=== PATIENT | female | born 1940 | race Caucasian/White ===

== ENCOUNTER → 2016-10-10 | Outpatient (CLI) | payer OTHER, BC ==
[~2016-10-10] MED LIST: ASCA500 PO; CLTP PO; CMDUNK PO; NIAC1TAB59 PO; OMEG10007 PO; OXYC-57 PO; OXYSR10 PO; SIMV80TA2 PO; TRAZ100T29 PO; [UNRECOGNIZED DRUG - OTHER] PO
--- NOTE | 2016-10-10 11:25 | DIAGNOSTIC IMAGING REPORT ---
ULTRASOUND OF THE CAROTID ARTERIES CLINICAL HISTORY: Carotid artery stenosis. COMPARISON STUDY: Carotid artery ultrasound dated 01/06/2014. TECHNIQUE: Real-time, grayscale, and color Doppler sonography of the carotid arteries is performed. Images are reviewed in the transverse and longitudinal planes. FINDINGS: Blood pressure in the right arm measures 156/87 and blood pressure in the left arm measures 178/90. The carotid arteries are patent bilaterally and demonstrate antegrade flow. There is mild echogenic shadowing atherosclerotic plaque seen in the carotid bulbs bilaterally. Normal doppler arterial waveforms are seen throughout. Velocity measurements are listed below. Common carotid peak systolic velocity (cm/sec): RIGHT: 62 LEFT: 69 ICA proximal peak systolic velocity (cm/sec): RIGHT: 40 LEFT: 59 ICA mid peak systolic velocity (cm/sec): RIGHT: 55 LEFT: 37 ICA distal peak systolic velocity (cm/sec): RIGHT: 54 LEFT: 52 ICA/CC peak systolic ratio: RIGHT: 0.9 LEFT: 0.9 Antegrade flow was shown in the vertebral arteries. The external carotid arteries are patent. IMPRESSION: 1. There is no sonographic evidence of hemodynamically significant stenosis in the right or left carotid arterial system. 2. Antegrade flow is shown in the vertebral arteries. Electronically signed by: Rodger Clark M.D. 10/10/2016 11:24 AM Dictated Date/Time: 10/10/2016 11:22 AM
--- NOTE | 2016-10-14 12:25 | CODING QUERY MEDICAL NECESSITY ---
SUPPORTING DIAGNOSIS NEEDED A supporting diagnosis is required for the test/procedure performed on this patient in order for us to be reimbursed by the patient's insurance. Please provide a supporting diagnosis for the following test/procedure listed below next to the test name along with your signature. *If there is no additional diagnosis for this patient that would support the following test/procedure please document that below next to the test/procedure. Test(s)/Procedure(s) that require a supporting diagnosis: * US CAROTID DOPPLER NECK DIAGNOSIS: * DOS: 10/10/16 Provider Signature: Date: Thank you Autumn [facility] Information Management Once completed, please kindly fax back to [phone] For questions please call [phone]
== END | disposition home or self-care (01) ==
LOC: C.ULTR 09:45
PROVIDERS: ATTEND Nurse Practitioner
DX: I65.29 Occlusion and stenosis of unspecified carotid artery (principal)

== ENCOUNTER → 2017-04-05 | Outpatient (CLI) | payer OTHER, BC ==
--- NOTE | 2017-04-05 12:32 | MAMMOGRAPHY REPORT ---
BILATERAL DIGITAL SCREENING MAMMOGRAM WITH CAD: 04/05/2017 CLINICAL HISTORY: Routine screening. Patient has no complaints. TECHNIQUE: Current study was also evaluated with a Computer Aided Detection (CAD) system. Bilateral CC and MLO views were obtained. COMPARISON: Comparison is made to exams dated: 03/25/2016 mammogram, 03/24/2015 mammogram, 07/22/2014 ultrasound, 07/22/2014 mammogram, 01/20/2014 ultrasound, and 01/20/2014 mammogram - [facility]. BREAST COMPOSITION: There are scattered areas of fibroglandular density in both breasts. FINDINGS: No suspicious masses, calcifications, or areas of architectural distortion are noted in ei ther breast. There has been no significant interval change compared to prior exams. Bilateral benign -appearing calcifications are not significantly changed. IMPRESSION: ACR BI-RADS CATEGORY 2: BENIGN There is no mammographic evidence of malignancy. A 1 year screening mammogram is recommended. The pa tient will receive written notification of the results. Approximately 10% of breast cancers are not detected with mammography. A negative mammographic report should not delay biopsy if a clinically suggestive mass is present. Azra Singh M.D. /:04/05/2017 11:43:16 Structures Engineer: Milka Lima, [facility] letter sent: Normal 1/2 BI-RADS Code: ACR BI-RADS Category 2: Benign
== END | disposition home or self-care (01) ==
LOC: C.MAMM 09:26
PROVIDERS: ATTEND Obstetrics & Gynecology
DX: Z12.31 Encounter for screening mammogram for malignant neoplasm of breast (principal)

== ENCOUNTER → 2017-05-29 | Outpatient (CLI) | payer OTHER, BC ==
[2017-05-29 12:31] LABS: ALT/SGPT 23 U/L (12-78); AST/SGOT 24 U/L (15-37); BLOOD UREA NITROGEN 25 mg/dl (7-18); BUN/CREATININE RATIO 33.6 (10-20); CALCIUM 8.1 mg/dl (8.5-10.1); CARBON DIOXIDE 28 mmol/L (21-32); CHLORIDE 108 mmol/L (98-107); CREATININE 0.74 mg/dl (0.60-1.20); GLUCOSE 91 mg/dl (70-99); POTASSIUM 4.4 mmol/L (3.5-5.1); SODIUM 143 mmol/L (136-145)
[2017-05-29 12:43] LABS: ALB/GLOB RATIO 0.9 (0.9-2); ALKALINE PHOSPHATASE 73 U/L (45-117)
== END | disposition home or self-care (01) ==
LOC: C.LABBFT 07:38
PROVIDERS: ATTEND Nurse Practitioner
DX: E04.0 Nontoxic diffuse goiter (principal); E78.00 Pure hypercholesterolemia, unspecified

== ENCOUNTER → 2017-06-02 | Outpatient (CLI) | payer OTHER, BC ==
[2017-06-02 12:29] LABS: CHOLESTEROL/HDL RATIO 2.5
== END | disposition home or self-care (01) ==
LOC: C.LABBFT 10:52
PROVIDERS: ATTEND Internal Medicine
DX: E78.00 Pure hypercholesterolemia, unspecified (principal)

== ENCOUNTER → 2017-08-22 | Outpatient (CLI) | payer OTHER, BC ==
[~2017-08-22] MED LIST changes: +ASPI81TA28 PO; +CALC600T9 PO; +CLB/200 PO; +EZET10TA63 PO; +IBUP-1050 PO; +MULT-190 PO; +MULT-506 PO; +TIMO1SOL6 OP
== END | disposition home or self-care (01) ==
LOC: C.CTS 09:38
PROVIDERS: ATTEND Orthopaedic Surgery
DX: M19.012 Primary osteoarthritis, left shoulder (principal)

== ENCOUNTER 2017-09-15 08:20 | Inpatient (IN) | payer OTHER, BC ==
[2017-08-22 10:02] VITALS: BMI 29.0
--- NOTE | 2017-08-22 10:35 | PAT Medication Instructions ---
Service Date Aug 22, 2017. Current Home Medication List Aspirin (Aspirin Ec), 81 MG PO QPM Calcium Carbonate-Vitamin D (Calcium + D), 1 TAB PO NOON Celecoxib (CeleBREX), 200 MG PO PRN Ezetimibe (Zetia), 10 MG PO QAM Ibuprofen (Advil), 600 MG PO PRN Multivitamin (Multivitamin), 1 TAB PO NOON Ocuvite Preservision (Ocuvite Preservision), 1 TAB PO BID Simvastatin (Zocor), 80 MG PO QPM Timolol Hemihydrate 0.25% Oph (Betimol 0.25% Oph), 1 DROP OP BID Trazodone Hcl (Trazodone), 100 MG PO HS Medication Instructions For Your Scheduled Surgery - Check with surgeon for instructions: Celecoxib (CeleBREX), 200 MG PO PRN Ibuprofen (Advil), 600 MG PO PRN - Hold the following medications the morning of surgery: Multivitamin (Multivitamin), 1 TAB PO NOON Ocuvite Preservision (Ocuvite Preservision), 1 TAB PO BID - Take the following medications the morning of surgery with a sip of water: Ezetimibe (Zetia), 10 MG PO QAM Timolol Hemihydrate 0.25% Oph (Betimol 0.25% Oph), 1 DROP OP BID - Take the following medications as scheduled the night before surgery: Aspirin (Aspirin Ec), 81 MG PO QPM (okay to continue per surgeon) Simvastatin (Zocor), 80 MG PO QPM Timolol Hemihydrate 0.25% Oph (Betimol 0.25% Oph), 1 DROP OP BID Trazodone Hcl (Trazodone), 100 MG PO HS Ocuvite Preservision (Ocuvite Preservision), 1 TAB PO BID If you have any questions please call us at [phone] or [phone] or [phone]
[2017-08-22 11:14] LABS: BASO % 1.1 %; BASO ABS # 0.08 K/uL (0-0.2); COMPLETE YES; EOS % 2.5 %; HEMATOCRIT 37.2 % (37-47); IG% 0.3 %; LYMPH % 31.1 %; LYMPH ABS # 2.36 K/uL (1.2-3.4); MANUAL MICROSCOPIC REQUIRED? NO; MEAN CELL VOLUME 98.7 fL (80-100); MEAN CORPUSCULAR HEMOGLOBIN 32.4 pg (25-34); MEAN CORPUSCULAR HGB CONC 32.8 g/dl (32-36); MEAN PLATELET VOLUME 9.7 fL (7.4-10.4); MONO % 6.6 %; NEUT % 58.4 %; PLATELET COUNT 318 K/uL (130-400); RED BLOOD COUNT 3.77 M/uL (4.2-5.4); URINE APPEARANCE CLEAR (CLEAR); URINE BILIRUBIN NEG (NEG); URINE COLOR YELLOW; URINE NITRITE NEG (NEG); UROBILINOGEN NEG (NEG); WHITE BLOOD COUNT 7.58 K/uL (4.8-10.8)
[2017-08-22 11:21] LABS: REVIEW REQ? NO
[2017-08-22 11:24] LABS: PARTIAL THROMBOPLASTIN RATIO 1.1; PROTHROMBIN TIME (PATIENT) 10.4 SECONDS (9.0-12.0)
--- NOTE | 2017-08-22 12:05 | DIAGNOSTIC IMAGING REPORT ---
CHEST 2 VIEWS ROUTINE HISTORY: Preop. COMPARISON: Chest 10/01/2012. FINDINGS: The lungs are clear. Cardiac silhouette is normal in size. No pleural effusions. No pneumothorax. IMPRESSION: No acute process. Electronically signed by: Forset Warner M.D. 08/22/2017 12:04 PM Dictated Date/Time: 08/22/2017 12:01 PM
[2017-08-22 13:41] LABS: BUN/CREATININE RATIO 30.3 (10-20); CALCIUM 8.5 mg/dl (8.5-10.1); CREATININE 0.59 mg/dl (0.60-1.20); POTASSIUM 4.1 mmol/L (3.5-5.1)
--- NOTE | 2017-09-13 17:16 | HISTORY & PHYSICAL EXAMINATION ---
DATE OF ADMISSION: 09/15/2017 CHIEF COMPLAINT: Primary osteoarthritis of the left shoulder. HISTORY OF PRESENT ILLNESS: Courtney is a pleasant 77-year-old female who is complaining of 1 year history of left shoulder pain. It has gotten to the point where she is unable to sleep at night. She has pain doing any activities away from her body and over her head. X-rays and clinical examination have been diagnostic for primary osteoarthritis of the left shoulder. After failing conservative treatment she elected to proceed with a left total shoulder arthroplasty. PAST MEDICAL HISTORY: Significant for hyperlipidemia, TIA and osteoarthritis. MEDICATIONS: Aspirin 81 mg daily, simvastatin 80 mg daily, Zetia 10 mg daily, trazodone 100 mg daily, timolol 0.25 mg daily, and calcium 1000 mg daily. ALLERGIES: MORPHINE. PAST SURGICAL HISTORY: Significant for right total knee arthroplasty in 1997, left total knee arthroplasty in 2008 and endarterectomy in 2011. SOCIAL HISTORY: She smoked a pack a day for 15 years but quit 10 years ago. She has about 3 drinks per week. She tries to remain active. REVIEW OF SYSTEMS: She complains of left shoulder pain. All other pertinent review of systems are negative. PHYSICAL EXAMINATION: GENERAL: She is awake, alert and orient x3. She is in no apparent distress. She is very pleasant. HEENT: Pupils are equal, round and reactive to light. Extraocular movements intact. Oral mucosa is pink and moist. HEART: Regular rate per radial pulse. LUNGS: Lilian symmetrically bilaterally with no audible breath sounds. ABDOMEN: Soft, nontender, nondistended. MUSCULOSKELETAL: On physical examination of left shoulder, she has decreased range of motion about 130 degrees of forward flexion and 130 degrees of abduction. She has 5/5 muscle strength with full can testing and external rotation. Negative bear hug and belly press test. She does have crepitus and pain along the anterior glenohumeral joint line. IMAGING DATA: X-rays of the left shoulder do show advanced osteoarthritis with joint space narrowing and osteophyte formation. There is also a small inferior humeral osteophyte. IMPRESSION: Primary osteoarthritis of the left shoulder. PLAN: Will proceed with a Biomet comprehensive left total shoulder arthroplasty. Postoperatively, she will be placed in a sling and kept overnight for postoperative medical management.
[2017-09-15] VITALS (8 sets, daily range): BP systolic 128–155; BP diastolic 74–87; PULSE 67–83; TEMP 36.3–36.7; O2SAT 93–99; Ht 157.5 cm; Wt 70.5 kg
[~2017-09-15] VITALS: Ht 157.5 cm; Wt 70.5 kg
[2017-09-15] MEDS: TRANEXAMIC ACID INJ 1,000 MG in SYRINGE 0 ML IV SCH ×2 (06:30→10:35)
[~2017-09-15 08:20] MED LIST changes: +ACETAMINOPHEN 500 MG TAB PO SCH; -ASCA500 PO; +BUPIVACAINE 0.5 % 5 MG/1 ML PF 10ML VIAL ONE; +CEFAZOLIN 2000MG IV PUSH 10 ML IV SCH; +CLONIDINE HCL 100 MCG/ML SYRINGE ONE; -CLTP PO; -CMDUNK PO; +FAMOTIDINE 20 MG TAB PO SCH; +GABAPENTIN 300 MG CAP PO SCH; +LACTATED RINGER'S 1000ML 1,000 ML IV SCH; +LACTATED RINGER'S 1000ML IV SCH; +MEPIVACAINE HCL 1.5% 30 ML VIAL ONE; -NIAC1TAB59 PO; -OMEG10007 PO; -OXYC-57 PO; -OXYSR10 PO; +ROPIVACAINE 5MG/ML 30 ML 150 MG, BUPIVACAINE 0.5% MPF INJ 30 ML, EpINEphrine HCL INJ 0.... INFIL SCH; -[UNRECOGNIZED DRUG - OTHER] PO
--- NOTE | 2017-09-15 09:07 | History & Physical Bridge Note ---
H&P Re-Evaluation Bridge Note: I have examined the patient, reviewed the History & Physical and in the interval since the performance of the History & Physical I have noted the following changes of clinical significance: No changes noted
[2017-09-15] MEDS ORDERED: LIDOCAINE HCL 2% 2 ML VIAL (20MG/ML) ONE (10:33)
[2017-09-15] MEDS ORDERED: GLYCOPYRROLATE INJ 0.2 MG/ML VIAL ONE ×2 (10:33→13:06)
[2017-09-15] MEDS ORDERED: PROPOFOL IV EMULSION 10 MG/ML 20 ML VIAL IV ONE (10:33)
[2017-09-15] MEDS ORDERED: ONDANSETRON INJ 2 MG/ML 2 ML VIAL ONE (10:33)
[2017-09-15] MEDS ORDERED: NEOSTIGMINE METHYLSULFATE 5 MG/5 ML SYR ONE (10:33)
[2017-09-15] MEDS ORDERED: DEXAMETHASONE SOD INJ 4 MG/ML VIAL ONE (10:33)
[2017-09-15] MEDS ORDERED: MIDAZOLAM HCL 1 MG/ML 2ML VIAL ONE (10:34)
[2017-09-15] MEDS ORDERED: FENTANYL CITRATE INJ 50 MCG/1 ML 2 ML VIAL ONE (10:34)
[2017-09-15] MEDS ORDERED: BACITRACIN 50000 UNIT VIAL ONE (12:07)
[2017-09-15] MEDS ORDERED: ORTHO JOINT ANESTHETIC ONE (12:07)
[2017-09-15] MEDS ORDERED: EpHEDrine SULFATE INJ 50 MG/ML AMP ONE (13:06)
[2017-09-15] MEDS ORDERED: SODIUM CHLORIDE 0.9% INJ 10 ML VIAL ONE (13:06)
[2017-09-15] MEDS ORDERED: PHENYLEPHRINE HCL INJ 10 MG/ML VIAL ONE (13:06)
[2017-09-15] MEDS ORDERED: LARYING-O-JET KIT (LTA) ONE ×2 (13:06)
[2017-09-15] MEDS ORDERED: SUCCINYLCHOLINE CHLORIDE 20 MG/ML 10 ML VIAL IV ONE (13:15)
[2017-09-15] MEDS ORDERED: NALOXONE HCL 0.4 MG/1 ML VIAL/CARP IV PRN ×2 (13:30→14:00)
[2017-09-15] MEDS ORDERED: PROMETHAZINE HCL INJ 12.5 MG in SODIUM CHLORIDE 0.9% 50ML 50 ML IV PRN (13:30)
[2017-09-15] MEDS ORDERED: ONDANSETRON INJ 2 MG/ML 2 ML VIAL IV PRN ×2 (13:30→14:00)
[2017-09-15] MEDS ORDERED: FLUMAZENIL 0.1 MG/1 ML 10 ML VIAL IV PRN (13:30)
[2017-09-15] MEDS ORDERED: LABETALOL HCL IV 5 MG/ML 20ML IV PRN (13:30)
[2017-09-15] MEDS ORDERED: EpHEDrine SULFATE INJ 50 MG/ML AMP IV PRN (13:30)
[2017-09-15] MEDS ORDERED: ATROPINE SULFATE 0.1 MG/ML 5ML SYR IV PRN (13:30)
--- NOTE | 2017-09-15 13:56 | [facility] Post Operative Brief Note ---
Immediate Operative Summary Operative Date Sep 15, 2017. Pre-Operative Diagnosis Primary osteoarthritis of the left shoulder Post-Operative Diagnosis same as pre-operative Procedure(s) Performed Left total shoulder arthroplasty Surgeon Dr. Jorge Lucero Linen Folder Surgeon(s) BALJIT Bellamy Estimated Blood Loss 250ml Findings as above Specimens Permanent Specimen A: Left humeral head Complication(s) None Disposition Recovery Room / PACU
[2017-09-15] MEDS ORDERED: BISACODYL 10 MG SUPP PR PRN (14:00)
[2017-09-15] MEDS ORDERED: METOCLOPRAMIDE HCL INJ 5 MG/ML 2 ML VIAL IV PRN (14:00)
[2017-09-15] MEDS ORDERED: SOD PHOSPHATE/SOD BIPHOSPHATE ENEMA 132 ML BTL PR PRN (14:00)
[2017-09-15] MEDS ORDERED: HYDROmorphone INJ 1 MG/ML SYR IV PRN (14:00)
[2017-09-15] MEDS ORDERED: MAGNESIUM HYDROXIDE SUSP 30 ML UDC PO PRN (14:00)
--- NOTE | 2017-09-15 14:35 | OPERATIVE REPORT ---
DATE OF OPERATION: 09/15/2017 PREOPERATIVE DIAGNOSIS: Primary osteoarthritis of the left shoulder. POSTOPERATIVE DIAGNOSIS: Same. PROCEDURE: Left total shoulder arthroplasty. SURGEON: Dr. Jorge Lucero. DIRECTOR OF QUANTITATIVE RESEARCH: Jaylen Hendrix PA-C, whose assistance was necessary for positioning the arm and helping with instrumentation. ANESTHESIA: General with left interscalene nerve block. COMPLICATIONS: None. CONDITION: Stable to PACU. IMPLANTS USED: I used a Biomet comprehensive left total shoulder arthroplasty system with a size 10 mini pressfit stem, a small glenoid and a 46 x 18 mm eccentric head. The glenoid was cemented with Palacos-G cement. INDICATIONS: Courtney is a pleasant 77-year-old female who presented to my office with chronic left shoulder pain. X-rays and clinical examination were diagnostic for primary osteoarthritis of the left shoulder. After failing conservative treatment, she elected to undergo a left total shoulder arthroplasty. OPERATION AND FINDINGS: On 09/15/2017 she arrived at [facility] for the above procedure. She was seen in the preoperative holding area and the operative extremity was identified and signed. She was given antibiotic and a left interscalene nerve block. She was taken back to the operating room, laid on the table in supine position and put under general anesthesia. She was put into the beachchair position. The left shoulder was prepped and draped in sterile fashion. Time-out was done and the patient and operative extremity was properly identified. A deltopectoral approach was utilized. Dissection was taken down through the fascia and the anterior shoulder was exposed. The long head of the biceps tendon was tenodesed to the upper border of the pec major. The subscapularis was released off the lesser tuberosity with a centimeter of cuff tissue remaining. The remainder of the rotator cuff looked good and the proximal humerus was exposed. Sequential reaming up to a size 10 reamer was done. Offset reamer, a proximal humeral resection guide was placed and the proximal humerus was resected at 135 degrees of inclination and 30 degrees of retroversion. The glenoid was then exposed. Time was spent doing a superior and anterior superior capsular labral release. The Biomet signature guide was then placed on the anterior-superior glenoid. The guide pin was placed for the total shoulder arthroplasty hole. A small reamer was used and the central boss was drilled. The 3 peripheral peg holes were then drilled and trialed small glenoid was then impacted into place. I was happy with the fit. The final small glenoid was then cemented in place with Palacos-G cement. The proximal humerus was once again exposed. Sequential broaching up to a size 10 broach was done. A 46 x 18 mm eccentric head was then trialed. The shoulder was brought through a full range of motion and felt to be stable. The trials were removed. The final size 10 implant was impacted into place. The final 46 x 18 mm head was then impacted onto the humeral stem. The shoulder was reduced, brought through a full range of motion and felt to be stable. The subscapularis was tenodesed back to the lesser tuberosity with transosseous FiberWire sutures and [id number] sutures. Two sutures were placed in the lateral rotator interval. Surrounding soft tissues were injected with 100 mL orthopedic pain control cocktail. The entire joint was then irrigated with 3 liters of normal saline solution with bacitracin. The axillary nerve was palpated. A drain was placed. The skin was closed with 2-0 Vicryl, 3-0 V-Loc suture and clare. She was then placed in a soft dressing and a regular arm sling. She was then extubated, transferred to a [facility] and taken to the postanesthesia care unit in stable condition. She tolerated the procedure well. I attest to the content of the Intraoperative Record and any orders documented therein. Any exception s are noted below.
--- NOTE | 2017-09-15 15:20 | Anesthesiology Progress Note ---
Anesthesia Post Op Note Date & Time Sep 15, 2017 at 15:20 Vital Signs Pain Intensity: 0 Vital Signs Past 12 Hours Date Time Temp Pulse Resp B/P (MAP) Pulse Ox O2 Delivery O2 Flow Rate FiO2 09/15/17 14:56 36.3 74 16 136/79 (104) 98 Nasal Cannula 2 09/15/17 14:52 74 15 09/15/17 14:52 73 15 98 09/15/17 14:51 133/75 09/15/17 14:47 75 13 09/15/17 14:47 75 13 98 09/15/17 14:46 142/79 09/15/17 14:42 76 16 97 09/15/17 14:42 76 16 09/15/17 14:41 74 14 142/79 98 09/15/17 14:41 74 14 09/15/17 14:36 78 18 09/15/17 14:36 78 18 144/80 98 09/15/17 14:31 79 20 143/82 98 09/15/17 14:31 79 20 09/15/17 14:26 79 13 142/82 96 09/15/17 14:26 79 13 09/15/17 14:22 144/82 09/15/17 14:21 36.1 84 12 144/82 97 Oxymask 10 09/15/17 08:50 36.7 83 18 155/87 97 Room Air Notes Mental Status: alert / awake / arousable, participated in evaluation Pt Amnestic to Procedure: Yes Nausea / Vomiting: adequately controlled Pain: adequately controlled Airway Patency, RR, SpO2: stable & adequate BP & HR: stable & adequate Hydration State: stable & adequate Anesthetic Complications: no major complications apparent
--- NOTE | 2017-09-15 15:57 | DIAGNOSTIC IMAGING REPORT ---
L SHOULDER MIN 2 VIEWS ROUTINE CLINICAL HISTORY: Post shoulder surgery. COMPARISON: Left shoulder radiographs November 15, [address] August 22, 2017. FINDINGS: Alignment of the left shoulder arthroplasty is anatomic. Drains and skin clare are present. There is no periprosthetic fracture or unexpected radiopaque foreign body. IMPRESSION: Expected findings following left shoulder arthroplasty Electronically signed by: Bradley Reddy M.D. 09/15/2017 3:56 PM Dictated Date/Time: 09/15/2017 3:55 PM
[2017-09-15] MEDS: ACETAMINOPHEN IV 1,000 MG in EMPTY BAG 0 ML IV SCH ×2 (16:41→23:38)
[2017-09-15] MEDS: KETOROLAC TROMETHAMINE 15 MG/ML VIAL IV. SCH ×2 (16:41→22:38)
[2017-09-15] MEDS: POTASSIUM CHLORIDE INJ 10 MEQ in SODIUM CHLORIDE 0.9% 1000ML 1,000 ML IV SCH (16:41)
[2017-09-15] MEDS ORDERED: TIMO0.05 OP (17:30)
[2017-09-15] MEDS: CEFAZOLIN IV 1,000 MG in SYRINGE 0 ML IV SCH (20:14)
[2017-09-15] MEDS ORDERED: SIMVASTATIN 80 MG TAB PO SCH (21:00)
[2017-09-15] MEDS ORDERED: TRAZODONE HCL 100 MG TAB PO SCH (21:00)
[2017-09-15] MEDS ORDERED: SENNA 8.6 MG TAB PO SCH (21:00)
[2017-09-15] MEDS ORDERED: ASPIRIN 81 MG ECTAB PO SCH (21:00)
[2017-09-15] MEDS: TIMOLOL MALEATE 0.25% OP SCH (21:22)
[2017-09-15] MEDS: DOCUSATE SODIUM 100 MG CAP PO SCH (21:22)
[2017-09-16 03:25] VITALS: BP 121/78; PULSE 83; TEMP 36.7; O2SAT 94
[2017-09-16] MEDS: KETOROLAC TROMETHAMINE 15 MG/ML VIAL IV. SCH ×2 (03:25→09:40)
[2017-09-16] MEDS: POTASSIUM CHLORIDE INJ 10 MEQ in SODIUM CHLORIDE 0.9% 1000ML 1,000 ML IV SCH ×2 (03:25→09:40)
[2017-09-16] MEDS: CEFAZOLIN IV 1,000 MG in SYRINGE 0 ML IV SCH (03:25)
[2017-09-16 06:33] LABS: HEMATOCRIT 32.6 % (37-47); MEAN CELL VOLUME 96.7 fL (80-100); MEAN CORPUSCULAR HEMOGLOBIN 32.3 pg (25-34); MEAN CORPUSCULAR HGB CONC 33.4 g/dl (32-36); MEAN PLATELET VOLUME 9.9 fL (7.4-10.4); PLATELET COUNT 316 K/uL (130-400); RED BLOOD COUNT 3.37 M/uL (4.2-5.4); WHITE BLOOD COUNT 12.95 K/uL (4.8-10.8)
[2017-09-16 07:08] VITALS: BP 120/70; PULSE 85; TEMP 36.7; O2SAT 94
[2017-09-16 07:17] LABS: BUN/CREATININE RATIO 33.9 (10-20); CREATININE 0.7 mg/dl (0.60-1.20); POTASSIUM 4.2 mmol/L (3.5-5.1)
[2017-09-16] MEDS: ACETAMINOPHEN IV 1,000 MG in EMPTY BAG 0 ML IV SCH (07:18)
[2017-09-16] MEDS: OXYCODONE HCL IR 5 MG TAB (IMMEDIATE RELEASE) PO PRN ×2 (07:19→13:16)
[2017-09-16] MEDS: TIMOLOL MALEATE 0.25% OP SCH (07:21)
[2017-09-16] MEDS: DOCUSATE SODIUM 100 MG CAP PO SCH (07:22)
[2017-09-16] MEDS ORDERED: RXC5 PO (08:01)
--- NOTE | 2017-09-16 08:03 | Discharge Instructions ---
Discharge Instructions Date of Service Sep 16, 2017. Admission Reason for Admission: Left Shoulder Degenerative Joint Disease Discharge Discharge Diagnosis / Problem: Left Total Shoulder Discharge Goals Goal(s): Decrease discomfort, Improve function Activity Recommendations Activity Limitations: as noted below . Instructions / Follow-Up Instructions / Follow-Up Activity and Therapy Recommendations: * Wear your sling for 3 weeks, unless otherwise instructed. You may remove your sling to shower and to dress, but otherwise, you should be in your sling at all times, including while sleeping * The shoulder replacement is very stable and you can use your hand while in the sling * Physical Therapy should start about 3-5 days from your day of surgery. Therapy will last about 8-12 weeks * You were shown a series of exercises in the hospital. Do these exercises daily including the exercises you were shown in physical therapy. Medications: * Narcotic You will likely be sent home from the hospital with a prescription for the narcotic pain medication that worked best throughout your stay. * Other medications may be prescribed for specific circumstances. If you have any questions, please call the office at . * Resume previous home medications unless otherwise instructed Showering: You may shower 5 days from the day of surgery. Let the soapy shower water run over it the clare. Do not scrub or soak the dressing or the incision. Things To Watch For: * Drainage from the incision site that occurs more than one week after your surgery. * Increased redness at the incision site. * Fever above 102 degrees Fahrenheit. * Unusual chest pain or shortness of breath. * Call [facility] at with any of the above problems Follow-Up Visit: Follow-up with Dr. Lucero 2 weeks after your day of surgery. An appointment was probably scheduled when you signed-up for surgery in the office. If you have any questions call Office Instructions: More detailed instructions as well as Frequently Asked Questions were provided in a folder by our office when you signed-up for surgery. Please review these instructions when you get home. If you have any further questions or concerns, please feel free to call the office at [phone] Current Hospital Diet Patient's current hospital diet: Regular Diet Discharge Diet Recommended Diet: Regular Diet Procedures Procedures Performed: Left total shoulder arthroplasty Pending Studies Studies pending at discharge: no Medical Emergencies . Who to Call and When: Medical Emergencies: If at any time you feel your situation is an emergency, please call 911 immediately. . Non-Emergent Contact Non-Emergency issues call your: Surgeon Call Non-Emergent contact if: wound has increased drainage, wound has increased redness . "Provider Documentation" section prepared by Jorge Lucero. . VTE Core Measure Inpt VTE Proph given/why not?: Treatment not indicated
--- NOTE | 2017-09-16 08:33 | PROGRESS NOTE ---
DATE: 09/16/2017 DATE: 09/16/2017 CHIEF COMPLAINT: Status post left total shoulder arthroplasty postop day #1. PROGRESS: Courtney was seen and examined at bedside today. Overall, she is doing very well. She has very little pain in the shoulder. She was able to get some sleep last night. She has no complaints. PHYSICAL EXAMINATION: LEFT SHOULDER: The dressing is clean and dry and the drain is to suction. She has active motion of her wrist and radial, median and ulnar nerves were checked and intact. Her axillary nerve was not checked yet. LABORATORY DATA: She has an H&H today of 10.9 and 32.6. Her glucose is 111. X-rays postoperatively of the shoulder show the prosthesis to be in anatomic alignment without any evidence of fracture, dislocation or loosening. IMPRESSION: Status post left total shoulder arthroplasty postop day #1. PLAN: At this point, she is doing well. The nursing staff will change the dressing and pull the drain today. Physical therapy will do hand, wrist, elbow and pendulum exercises. If she is doing well she can be discharged to home later this morning.
--- NOTE | 2017-09-16 08:38 | DISCHARGE SUMMARY ---
DISCHARGE DIAGNOSIS: Primary osteoarthritis of the left shoulder. PROCEDURE: Left total shoulder arthroplasty on 09/15/[address] Jorge Lucero. DISCHARGE INSTRUCTIONS: 1. Oxycodone 5-10 mg every 4 hours as needed for pain. 2. Aspirin 81 mg daily. 3. Celebrex 200 mg as needed. 4. Zetia 10 mg daily. 5. Zocor 80 mg daily. 6. Timolol drops twice a day. 7. Trazodone 100 mg at night. 8. Continue all over the counter vitamins, minerals and pain relievers. 9. Left arm sling for 3 weeks. 10. Follow up with Dr. Lucero in 2 weeks. 11. Call the office of Dr. Lucero with any questions or concerns. HOSPITAL COURSE: Courtney is a pleasant 77-year-old female who presented to my office with complaints of chronic left shoulder pain. X-rays and clinical examination were diagnostic for primary osteoarthritis of the left shoulder. After failing conservative treatment, she elected to undergo a left total shoulder arthroplasty. On 09/15/2017, she arrived at [facility] and underwent a left shoulder replacement without complications. She had a general anesthetic and a left interscalene nerve block. Postoperatively, she was placed in an arm sling and discharged to general orthopedic floor. Her hospital course was uneventful. On postop day #1, her H&H was stable at 10.9 and 32.6. She was able to participate well with physical therapy. The nursing staff changed the dressing, pulled the drain and was subsequently discharged to home with the above instructions.
[2017-09-16] MEDS ORDERED: EZETIMIBE 10MG TAB PO SCH (09:00)
[2017-09-16] MEDS ORDERED: MULTIVITAMIN TAB PO SCH (09:00)
[2017-09-16 10:21] VITALS: BP 120/70; PULSE 85; TEMP 36.7; O2SAT 94
== END 2017-09-16 14:27 | disposition home or self-care (01) | DRG 483 ==
LOC: C.ACU 08:20 → C.3E 10:34 → ENRESERV 15:08
PROVIDERS: ADMIT Orthopaedic Surgery; ATTEND Orthopaedic Surgery
PROC: 0RRK0JZ Replacement of Left Shoulder Joint with Synthetic Substitute, Open Approach (ICD-10-PCS; principal; 2017-09-15 11:10)
DX: M19.012 Primary osteoarthritis, left shoulder (principal); E78.5 Hyperlipidemia, unspecified; H40.9 Unspecified glaucoma; Z86.73 Personal history of transient ischemic attack (TIA), and cerebral infarction without residual deficits; Z87.891 Personal history of nicotine dependence; Z79.82 Long term (current) use of aspirin; Z79.899 Other long term (current) drug therapy; Z96.653 Presence of artificial knee joint, bilateral

== ENCOUNTER → 2017-10-09 | Outpatient (CLI) | payer OTHER, BC ==
[~2017-10-09] MED LIST changes: -ACETAMINOPHEN 500 MG TAB PO SCH; -BUPIVACAINE 0.5 % 5 MG/1 ML PF 10ML VIAL ONE; -CEFAZOLIN 2000MG IV PUSH 10 ML IV SCH; -CLONIDINE HCL 100 MCG/ML SYRINGE ONE; -FAMOTIDINE 20 MG TAB PO SCH; -GABAPENTIN 300 MG CAP PO SCH; -LACTATED RINGER'S 1000ML 1,000 ML IV SCH; -LACTATED RINGER'S 1000ML IV SCH; -MEPIVACAINE HCL 1.5% 30 ML VIAL ONE; -ROPIVACAINE 5MG/ML 30 ML 150 MG, BUPIVACAINE 0.5% MPF INJ 30 ML, EpINEphrine HCL INJ 0.... INFIL SCH; +RXC5 PO; +TIMO0.05 OP; -TIMO1SOL6 OP
--- NOTE | 2017-10-09 16:50 | DIAGNOSTIC IMAGING REPORT ---
TWO VIEW CHEST CLINICAL HISTORY: Atypical chest pain. FINDINGS: PA and lateral chest radiographs are compared to study dated 08/22/2017. The cardiomediastinal silhouette is unremarkable. There is atherosclerotic calcification of the thoracic aorta. Chronic interstitial thickening is similar to previous. Bibasilar atelectasis is observed. The lungs and pleural spaces are otherwise clear. There is no pneumothorax. The skeletal structures are osteopenic. The bony thorax appears intact. A left shoulder arthroplasty is in place. IMPRESSION: No acute cardiopulmonary abnormality. Electronically signed by: Rodger Clark M.D. 10/09/2017 4:49 PM Dictated Date/Time: 10/09/2017 4:47 PM
== END | disposition home or self-care (01) ==
LOC: C.RAD1850 16:31
PROVIDERS: ATTEND Internal Medicine
DX: R05 Cough (principal)

== ENCOUNTER → 2017-11-27 | Outpatient (CLI) | payer OTHER, BC ==
[2017-11-27 12:36] LABS: ALBUMIN 3.3 gm/dl (3.4-5.0); ALT/SGPT 20 U/L (12-78); AST/SGOT 19 U/L (15-37); BLOOD UREA NITROGEN 20 mg/dl (7-18); CALCIUM 8.1 mg/dl (8.5-10.1); CARBON DIOXIDE 28 mmol/L (21-32); GLUCOSE 103 mg/dl (70-99); SODIUM 143 mmol/L (136-145)
[2017-11-27 12:38] LABS: ALKALINE PHOSPHATASE 73 U/L (45-117); CHOLESTEROL 128 mg/dl (0-200); HEMATOCRIT 36.6 % (37-47); HEMOGLOBIN 11.9 g/dL (12.0-16.0); LDL CHOLESTEROL CALCULATED 70 mg/dl; MEAN CELL VOLUME 96.8 fL (80-100); MEAN CORPUSCULAR HEMOGLOBIN 31.5 pg (25-34); MEAN CORPUSCULAR HGB CONC 32.5 g/dl (32-36); MEAN PLATELET VOLUME 10.3 fL (7.4-10.4); PLATELET COUNT 364 K/uL (130-400); RED CELL DISTRIBUTION WIDTH CV 16.3 % (11.5-14.5); RED CELL DISTRIBUTION WIDTH SD 57.4 fL (36.4-46.3); TOTAL PROTEIN 6.7 gm/dl (6.4-8.2); WHITE BLOOD COUNT 6.17 K/uL (4.8-10.8)
== END | disposition home or self-care (01) ==
LOC: C.LABBFT 08:15
PROVIDERS: ATTEND Internal Medicine
DX: E78.00 Pure hypercholesterolemia, unspecified (principal)

== ENCOUNTER 2020-02-23 12:27 | Observation (INO) ==
[2020-02-23] MEDS ORDERED: SODIUM CHLORIDE 0.9% 500 ML IV SCH (13:30)
[2020-02-23] MEDS ORDERED: SODIUM CHLORIDE 0.9% 1000ML 1,000 ML IV SCH (13:30)
[2020-02-23 13:43] LABS: Basophils # (auto) 0.12 K/uL (0-0.2); Basophils % (auto) 2.1 %; Hematocrit (blood only) 36.6 % (37-47); Hemoglobin 12.5 g/dL (12.0-16.0); Immature Granulocytes # (auto) 0.01 K/uL (0.00-0.02); Immature Granulocytes % (auto) 0.2 %; Lymphocytes # (auto) 0.72 K/uL (1.2-3.4); Lymphocytes % (auto) 12.6 %; Mean Corpuscular Hgb Conc 34.2 g/dL (32-36); Mean Corpuscular Volume 90.8 fL (80-100); Mean Platelet Volume 11.5 fL (7.4-10.4); Monocytes # (auto) 0.53 K/uL (0.11-0.59); Monocytes % (auto) 9.2 %; Neutrophils # (auto) 4.35 K/uL (1.4-6.5); Neutrophils % (auto) 75.9 %; Platelet Count 109 K/uL (130-400); RDW Coefficient of Variation 14.4 % (11.5-14.5); RDW Standard Deviation 48.7 fL (36.4-46.3); Red Blood Count 4.03 M/uL (4.2-5.4); White Blood Count 5.73 K/uL (4.8-10.8)
[2020-02-23 14:00] LABS: Albumin Level 2.5 gm/dl (3.4-5.0); BUN Creatinine Ratio 15.4 (10-20); Blood Urea Nitrogen 12 mg/dl (7-18); Calcium 7.8 mg/dl (8.5-10.1); Carbon Dioxide 27 mmol/L (21-32); Chloride 96 mmol/L (98-107); Creatinine Clr Calc Pharmacy 52.6 ml/min; Est GFR (African American) 81.3; Est GFR (Non-African American) 70.1; Glucose 107 mg/dl (70-99); Magnesium 2.1 mg/dl (1.8-2.4); Potassium 3.2 mmol/L (3.5-5.1); Sodium 131 mmol/L (136-145)
[2020-02-23 14:11] LABS: Alanine Aminotransferase 55 U/L (12-78); Albumin Globulin Ratio 0.6 (0.9-2); Alkaline Phosphatase 58 U/L (45-117); Aspartate Aminotransferase 98 U/L (15-37); Bilirubin,Total 0.3 mg/dl (0.2-1); Globulin 3.9 gm/dl (2.5-4.0); Total Protein 6.4 gm/dl (6.4-8.2); Troponin I < 0.015 ng/ml (0-0.045)
--- NOTE | 2020-02-23 14:39 | XRay Report ---
XR chest 1V portable CLINICAL HISTORY: weakness COMPARISON STUDY: Chest radiograph January 15, 2019. FINDINGS: Lung volumes are normal. Lungs are clear. There is no pneumothorax or pleural effusion. Car diac size is normal. Mediastinal contours are normal. There is no evidence for pulmonary edema. Incid ental note is made of a left shoulder arthroplasty. IMPRESSION: No acute cardiopulmonary findings. ACT 112: Negative or not required by law. Electronically signed by: Bradley Reddy M.D. 02/23/2020 2:37 PM
--- NOTE | 2020-02-23 15:30 | Emergency Department Note ---
Impression & Plan Generalized weakness, Flu-like symptoms, COVID-19 virus test result unknown ED Provider Note NAME: BIRGIT VANESSA AGE: 80 SEX: F ARRIVES VIA: Walk-In INFORMANT: [Patient] ED PROVIDER(S): Nik Mccray MD CHIEF COMPLAINT: Flulike symptoms PLAN: Disposition: Admitted Condition: [Good] MEDICAL DECISION MAKING: Patient presented with feeling ill with generalized weakness. She underwent a w ork-up. Chest x-ray, blood work, and EKG revealed no significant abnormalities. The patient had a urinalysis performed and this was very concerning for UTI. She was given IV Rocephin. Given the weakness and her inability to get around I discussed possibilities for treatment with the window caser. Under the circumstances as she is a PUI for novel coronavirus and the test still pending further management in the hospital be necessary here. I discussed the case with Dr. Oro of the hospital service. She evaluated patient in the ER and admitted her. Triage Nursing notes reviewed and agree them. [Prior medical records reviewed] patient had an office visit on the . She w as tested for novel coronavirus. ER referral was recommended but the patient declined. Patient did have a call to the on-call provider today and was directed to the ER for further evaluation. Vital Signs: reviewed and remarkable for borderline tachycardia Differential diagnosis: Infection, dehydration, metabolic abnormality, hypo/hyperglycemia, electrolyte disturbance, anemia, hypoxia, cardiac sources, intracerebral event, toxicologic, neurologic, as well as other pathologies. ER treatment provided: Normal saline hydration Diagnostics interpreted by me: ECG: Rate: 86 Rhythm:Normal sinus [place]:Normal QRS:Normal ST segements:No elevation or depression Other:No PACs or PVCs. Septal Q waves. Cardiac Monitoring: Cardiac monitoring ordered by me: The patient was placed on continuous cardiac monitoring and observed. It revealed a normal sinus rhythm at 88 beats per minute without ectopy or evidence of dysrhythmia. Laboratory studies: [See below] an unremarkable CBC and chemistry panel. Urinalysis concerning for infection. Imaging studies: Chest x-ray. Findings: A chest x-ray was performed and revealed no pneumothorax, effusion, infiltrate, pulmonary edema, free air under the d iaphragm, or wide mediastinum. Impression: No acute disease. Consultation(s): Dr. Oro of the hospital service HPI: The patient is a 80 year old female who presents to the Emergency Room with complaints of flulike symptom. This started over a week ago and is worsening. The patient also notes the following associated symptoms, generalized weakness, myalgias, fevers, and nausea. She notes very poor p.o. intake. The patient has found no relieving factors. Current pain is rated as 4/10. Patient has chronic hip pain and is pending a hip replacement but that has been put on hold. She was seen by her PCP on the and had testing done for normal coronavirus. The results are still pending. Pt denies LOC, headache, fevers, chills, diaphoresis, visual changes, neck pain, chest pain, breathing difficulties, vomiting, abdominal pain, back pain, melena, hematochezia, urinary symptoms, numbness, lymphadenopathy, rash, or other complaints. ROS: See above HPI for pertinent positives & negatives. A total of [10] systems reviewed and were otherwise negative. PAST MEDICAL HISTORY:[See Below] high cholesterol, anemia osteoarthritis PAST SURGICAL HISTORY:[See Below] FAMILY HISTORY:[See Below] SOCIAL HISTORY:[See Below] lives with partner HOME MEDICATIONS:[See Below] ALLERGIES:[See Below] VITALS:[See Below] PHYSICAL EXAMINATION: GENERAL: Awake, alert, tired-appearing, in no distress HENT: Normocephalic, atraumatic. Oropharynx unremarkable. EYES: Normal conjunctiva. Sclera non-icteric. NECK: Inspection normal. Non-tender. Supple. No nuchal rigidity. FROM. No masses. RESPIRATORY: Clear to auscultation. No wheezes. No rales. Normal respiratory effort. CARDIAC: Normal rate. Normal rhythm. No murmurs. No rubs. Extremities warm and well perfused. Pulses equal. No JVD. GI: Soft, non-distended. No tenderness to palpation. No rebound or guarding. No masses. RECTAL: Deferred. MUSCULOSKELETAL: Atraumatic. Chest examination reveals no tenderness. The back is symmetrical on inspection without obvious abnormality. There is no CVA tenderness to palpation. No joint edema. LOWER EXTREMITIES: Calves are equal size bilaterally and non-tender. No edema. No discoloration. NEURO: Normal sensorium. Generally weak but no focal sensory or motor deficits noted. SKIN: No rash or jaundice noted. ED COURSE: [Critical Care:] [None] Nik Mccray MD Past Med/Surg History Medical History Bleeding per rectum (Resolved) Chronic diarrhea (Resolved) Glaucoma Hearing deficit BILATERAL HEARING AIDES Hyperlipidemia Osteoarthritis Sialoadenitis (Resolved) Stroke syndrome (Resolved) TIA (transient ischemic attack) 8 years ago. No residual deficits Surgical History History of carotid endarterectomy WITH STENT (LEFT) 8 years ago History of colonoscopy ATTEMPTED, HAS NEVER HAD A SUCCESSFUL COLONOSCOPY D/T NO ANESTHESIA History of detached retina repair LEFT EYE History of tonsillectomy History of total knee replacement BILATERAL History of total shoulder replacement LEFT Family History Mother Fallopian tube carcinoma Ovarian cancer Father Coronary heart disease Myocardial infarction Denies family history of Prostate cancer Breast cancer Colorectal cancer Social History Preferred Language: Yi Communication Ability: Effective Legal Summer Intern Required: No Beliefs That Will Affect Care: None marital status: Current Living Situation: Spouse current occupational status: retired Feels Safe at Home: Yes Smoking Status: Former smoker Tobacco Type: cigarettes ; Age Started Using Tobacco: 19 ; Second Hand Exposure: No ; Hx Alcohol Use: Yes Alcohol type: wine Hx Substance Use: No Childhood Exposure to Second-Hand Smoke: No Allergies Allergies Allergy/AdvReac Type Severity Reaction Status Date / Time morphine AdvReac Mild NAUSEA Verified 02/12/20 09:31 VOMITING levothyroxine AdvReac Unknown Unknown Verified 02/12/20 09:31 Home Meds Home Medications Medication Instructions Recorded Confirmed PreserVision AREDS 1 tab PO BID 02/21/19 02/23/20 calcium carbonate [Calcium 600] 600 mg PO DAILY 02/21/19 02/23/20 multivitamin 1 tab PO DAILY 02/21/19 02/23/20 timolol maleate (PF) 1 drp OPHTHALMIC (EYE) BID 02/21/19 02/23/20 aspirin 81 mg PO DAILY 02/23/20 02/23/20 Previous Rx's Medication Instructions Recorded ezetimibe 10 mg tablet 10 mg PO DAILY #30 tab 06/18/19 hydrocortisone 2.5 % topical 1 applic TOPICAL HS #28.35 gm 06/18/19 ointment simvastatin 80 mg tablet 80 mg PO HS #30 tab 06/18/19 meloxicam 15 mg tablet 15 mg PO DAILY PRN #30 tab 07/18/19 fluocinolone acetonide oil 0.01 % 5 drops OTIC (EAR) BID PRN #20 ml 11/11/19 ear drops hydrocodone 5 mg-acetaminophen 325 1 tab PO Q6H PRN #30 tab 12/11/19 mg tablet oxycodone-acetaminophen 5 mg-325 1 tab PO Q6H PRN #40 tab 02/04/20 mg tablet ondansetron 4 mg disintegrating 4 mg PO Q6H PRN #30 tab 02/20/20 tablet Results & Data (ED) Vital Signs Vital Signs - 24 hr 02/23/20 12:33 02/23/20 13:18 02/23/20 14:28 Temperature 37.5 C Temperature Source Oral Pulse Rate - Lying Pulse Rate - Sitting Pulse Rate 99 H Pulse Rate [Left Finger] 86 Pulse Rhythm Regular Pulse Strength Normal Respiratory Rate 20 20 Respiratory Effort / Characteristics Non-Labored Spontaneous Non-Labored Spontaneous Respiratory Depth Normal Normal Respiratory Pattern Regular Regular Blood Pressure - Lying Blood Pressure - Sitting Blood Pressure 113/61 Blood Pressure [Right Arm] 114/71 Blood Pressure Mean 78 Blood Pressure Mean [Right Arm] 85 Blood Pressure Position Sitting Blood Pressure Position [Right Arm] Lying Pulse Oximetry 95 95 95 Oxygen Delivery Method Room Air Room Air Room Air Sepsis Recent Fever Within 48 Hours Yes Sepsis New/Unexplained Change in Mental Status No Sepsis Action Taken by Nursing No Action Required 02/23/20 16:46 02/23/20 16:47 02/23/20 18:00 Temperature Temperature Source Pulse Rate - Lying 83 Pulse Rate - Sitting 84 Pulse Rate Pulse Rate [Left Finger] 89 81 Pulse Rhythm Pulse Strength Respiratory Rate 20 20 Respiratory Effort / Characteristics Non-Labored Spontaneous Non-Labored Spontaneous Respiratory Depth Normal Normal Respiratory Pattern Regular Regular Blood Pressure - Lying 129/80 Blood Pressure - Sitting 132/79 Blood Pressure Blood Pressure [Right Arm] 132/79 127/74 Blood Pressure Mean Blood Pressure Mean [Right Arm] 96 91 Blood Pressure Position Blood Pressure Position [Right Arm] Lying Pulse Oximetry 97 95 Oxygen Delivery Method Room Air Room Air Sepsis Recent Fever Within 48 Hours Sepsis New/Unexplained Change in Mental Status Sepsis Action Taken by Nursing 02/23/20 18:31 02/23/20 20:00 02/23/20 20:10 Temperature Temperature Source Pulse Rate - Lying Pulse Rate - Sitting Pulse Rate 88 82 84 Pulse Rate [Left Finger] Pulse Rhythm Pulse Strength Respiratory Rate 24 22 22 Respiratory Effort / Characteristics Respiratory Depth Respiratory Pattern Blood Pressure - Lying Blood Pressure - Sitting Blood Pressure 131/77 124/75 124/75 Blood Pressure [Right Arm] Blood Pressure Mean 91 91 94 Blood Pressure Mean [Right Arm] Blood Pressure Position Blood Pressure Position [Right Arm] Pulse Oximetry 96 95 Oxygen Delivery Method Room Air Sepsis Recent Fever Within 48 Hours Sepsis New/Unexplained Change in Mental Status Sepsis Action Taken by Nursing Laboratory Data Result diagrams: 02/23/20 13:30 02/23/20 13:30 Lab Results 02/23/20 02/23/20 02/23/20 Range/Units 13:30 13:30 17:17 WBC 5.73 (4.8-10.8) K/uL RBC 4.03 L (4.2-5.4) M/uL Hgb 12.5 (12.0-16.0) g/dL Hct 36.6 L (37-47) % MCV 90.8 (80-100) fL MCH 31.0 (25-34) pg MCHC 34.2 (32-36) g/dL RDW Std Deviation 48.7 H (36.4-46.3) fL RDW Coeff of Jake 14.4 (11.5-14.5) % Plt Count 109 L (130-400) K/uL MPV 11.5 H (7.4-10.4) fL Immature Gran % (Auto) 0.2 % Neut % (Auto) 75.9 % Lymph % (Auto) 12.6 % [place] % (Auto) 9.2 % Eos % (Auto) 0.0 % Baso % (Auto) 2.1 % Immature Gran # (Auto) 0.01 (0.00-0.02) K/uL Neut # (Auto) 4.35 (1.4-6.5) K/uL Lymph # (Auto) 0.72 L (1.2-3.4) K/uL [place] # (Auto) 0.53 (0.11-0.59) K/uL Eos # (Auto) 0.00 (0-0.5) K/uL Baso # (Auto) 0.12 (0-0.2) K/uL Sodium 131 L (136-145) mmol/L Potassium 3.2 L (3.5-5.1) mmol/L Chloride 96 L (98-107) mmol/L Carbon Dioxide 27 (21-32) mmol/L Anion Gap 8.0 (3-11) BUN 12 (7-18) mg/dl Creatinine 0.80 (0.6-1.2) mg/dl Est Cr Clr Drug Dosing 52.6 ml/min Est GFR ( Amer) 81.3 Est GFR (Non-Af Amer) 70.1 BUN/Creatinine Ratio 15.4 (10-20) Glucose 107 H (70-99) mg/dl Calcium 7.8 L (8.5-10.1) mg/dl Magnesium 2.1 (1.8-2.4) mg/dl Total Bilirubin 0.3 (0.2-1) mg/dl AST 98 H (15-37) U/L ALT 55 (12-78) U/L Alkaline Phosphatase 58 (45-117) U/L Troponin I < 0.015 (0-0.045) ng/ml Total Protein 6.4 (6.4-8.2) gm/dl Albumin 2.5 L (3.4-5.0) gm/dl Globulin 3.9 (2.5-4.0) gm/dl Albumin/Globulin Ratio 0.6 L (0.9-2) TSH 1.220 (0.300-4.500) uIu/ml Urine Color Dark Yellow Urine Appearance Cloudy A (Clear) Urine pH 5.5 (4.5-7.5) Ur Specific [place] 1.020 (1.000-1.030) Urine Protein 1+ H (Negative) Urine Glucose (UA) Negative (Negative) Urine Ketones 1+ H (Negative) Urine Blood Negative (Negative) Urine Nitrite Positive A (Negative) Urine Bilirubin Negative (Negative) Urine Urobilinogen Negative (Negative) Ur Leukocyte Esterase 1+ H (Negative) Urine WBC (Auto) >30 H (0-5) /hpf Urine RBC (Auto) 5-10 H (0-4) /hpf U Hyaline Cast (Auto) 10-30 H (0-5) /lpf U Epithel Cells (Auto) 0-5 (0-5) /lpf Urine Bacteria (Auto) 4+ H (Negative) Administered Medications Sodium Chloride (Nss 1000ml) 1,000 mls @ 125 mls/hr IV .Q8H ANKITA Stop: 02/23/20 21:29 Last Admin: 02/23/20 15:40 Dose: 125 mls/hr Documented by: [id number] Discontinued Medications Sodium Chloride (Nss) 500 mls @ 999 mls/hr IV .Q31M ANKITA Stop: 02/23/20 14:00 Last Infusion: 02/23/20 15:40 Dose: 0 mls/hr Documented by: [id number] Admin: 02/23/20 14:54 Dose: 999 mls/hr Documented by: [id number] Ceftriaxone Sodium (Rocephin) 1,000 mg in 50 mls @ 100 mls/hr IV NOW STA Stop: 02/23/20 18:47 Last Infusion: 02/23/20 20:46 Dose: 0 mls/hr Documented by: [id number] Admin: 02/23/20 20:07 Dose: 100 mls/hr Documented by: [id number] Discharge Plan Visit Data Chief Complaint: Flu Like Symptoms Stated Complaint: FLU LIKE SYMPTOMS, THROWING UP PENDING COVID-19 TE ED Provider: Nik Mccray Discharge Problem: Generalized weakness, Flu-like symptoms, COVID-19 virus test result unknown Forms Stand Alone Forms: [facility] Prescriptions Prescriptions: No Action ezetimibe [Zetia] 10 mg tablet 10 mg PO DAILY Qty: 30 RF: 11 hydrocortisone 2.5 % ointment 1 applic topical HS Qty: 28.35 RF: 1 simvastatin 80 mg tablet 80 mg PO HS Qty: 30 RF: 11 fluocinolone acetonide oil 0.01 % drops 5 drops otic (ear) BID PRN (Reason: itching) Qty: 20 RF: 6 hydrocodone-acetaminophen 5-325 mg tablet 1 tab PO Q6H PRN (Reason: Pain) Qty: 30 RF: 0 oxycodone-acetaminophen [Percocet] 5-325 mg tablet 1 tab PO Q6H PRN (Reason: pain) Qty: 40 RF: 0 meloxicam 15 mg tablet 15 mg PO DAILY PRN (Reason: pain) Qty: 30 RF: 5 ondansetron 4 mg tablet,disintegrating 4 mg PO Q6H PRN (Reason: nausea and vomiting) Qty: 30 RF: 1 multivitamin Tablet 1 tab PO DAILY RF: 0 calcium carbonate [Calcium 600] 600 mg calcium (1,500 mg) Tablet 600 mg PO DAILY RF: 0 timolol maleate (PF) 0.25 % Dropperette 1 drp OPHTHALMIC (EYE) BID RF: 0 PreserVision AREDS 7,160-113-100 [id number] Tablet 1 tab PO BID RF: 0 aspirin 81 mg Tablet,Delayed Release (Dr/Ec) 81 mg PO DAILY RF: 0
[2020-02-23 17:34] LABS: Appearance Urine Cloudy (Clear); Bacteria Urine Automated 4+ (Negative); Bilirubin Urine Negative (Negative); Blood Urine Negative (Negative); Color Urine Dark Yellow; Epithelial Cell Urine Auto 0-5 /lpf (0-5); Glucose Urine UA Negative (Negative); Ketones Urine 1+ (Negative); Leukocyte Esterase Urine 1+ (Negative); Nitrite Urine Positive (Negative); Protein Urine 1+ (Negative); Urobilinogen Urine Negative (Negative); WBC Urine Automated >30 /hpf (0-5); pH Urine 5.5 (4.5-7.5)
[2020-02-23] MEDS ORDERED: cefTRIAXone SODIUM 1,000 MG/50 ML BAG IV STA (18:18)
--- NOTE | 2020-02-23 18:44 | History & Physical Report ---
Date of Service February 23, 2020 Assessment & Plan (1) Generalized weakness: Likely related to UTI Fever, n/v/d No respiratory sx CXR neg for acute CBC WNL PRP WNL with the exception of mild hypoK UA + for UTI, cx pending Trop, TSH WNL Started on ceftriaxone in the ED, will continue Pt is feeling improved s/p IVF and abx making UTI likely cause of sx (2) Hypokalemia: Replace via IV and monitor (3) COVID-19 virus test result unknown: Pt is very low risk for COVID No sick contacts, travel No loss of taste or smell Testing done as outpt on 02/20 Seems sx are more likely related to UTI Low likelihood of having UTI and COVID, especially given pt feels much improved s/p IVF and abx (4) Osteoarthritis of right hip: OR on hold due to COVID (5) Hypercholesterolemia: continue home meds (6) DVT prophylaxis: SCDs, ambulation given likely short duration of admission History of Present Illness Primary Care Provider: Iván Raphael MD 80 y/o F c/o weakness. Pt states she has been feeling weak and run down for about a week and it is getting worse. Pt was having fever, n/v/d. She has not been able to or wanted any PO. She was seen by PCP on 02/19 and advised to come to the ED at that time, but declined. The only testing done was a COVID swab, which is still pending. No loss of taste or smell. Pt received IVF and abx in the ED. She states she feels better and is hungry for the first time in a week. Pt has had no travel. She has not left her house other than to go to doctor's appts. She has no travel and no sick contacts. She lives with her and she has no sx. She has had contact with no one who has been tested for COVID that she is aware. Allergies Allergy/AdvReac Type Severity Reaction Status Date / Time morphine AdvReac Mild NAUSEA Verified 02/12/20 09:31 VOMITING levothyroxine AdvReac Unknown Unknown Verified 02/12/20 09:31 Home Medications Home Medications Medication Instructions Recorded Confirmed Type PreserVision AREDS 1 tab PO BID 02/21/19 02/23/20 History calcium carbonate [Calcium 600] 600 mg PO DAILY 02/21/19 02/23/20 History multivitamin 1 tab PO DAILY 02/21/19 02/23/20 History timolol maleate (PF) 1 drp OPHTHALMIC (EYE) BID 02/21/19 02/23/20 History ezetimibe 10 mg tablet 10 mg PO DAILY #30 tab 06/18/19 02/23/20 Rx hydrocortisone 2.5 % topical 1 applic TOPICAL HS #28.35 gm 06/18/19 02/23/20 Rx ointment simvastatin 80 mg tablet 80 mg PO HS #30 tab 06/18/19 02/23/20 Rx meloxicam 15 mg tablet 15 mg PO DAILY PRN #30 tab 07/18/19 02/23/20 Rx fluocinolone acetonide oil 0.01 % 5 drops OTIC (EAR) BID PRN #20 ml 11/11/19 02/23/20 Rx ear drops hydrocodone 5 mg-acetaminophen 325 1 tab PO Q6H PRN #30 tab 12/11/19 02/23/20 Rx mg tablet oxycodone-acetaminophen 5 mg-325 1 tab PO Q6H PRN #40 tab 02/04/20 02/23/20 Rx mg tablet ondansetron 4 mg disintegrating 4 mg PO Q6H PRN #30 tab 02/20/20 02/23/20 Rx tablet aspirin 81 mg PO DAILY 02/23/20 02/23/20 History Past Med/Surg History Medical History Bleeding per rectum (Resolved) Chronic diarrhea (Resolved) Glaucoma Hearing deficit BILATERAL HEARING AIDES Hyperlipidemia Osteoarthritis Sialoadenitis (Resolved) Stroke syndrome (Resolved) TIA (transient ischemic attack) 8 years ago. No residual deficits Surgical History History of carotid endarterectomy WITH STENT (LEFT) 8 years ago History of colonoscopy ATTEMPTED, HAS NEVER HAD A SUCCESSFUL COLONOSCOPY D/T NO ANESTHESIA History of detached retina repair LEFT EYE History of tonsillectomy History of total knee replacement BILATERAL History of total shoulder replacement LEFT Family History Mother Fallopian tube carcinoma Ovarian cancer Father Coronary heart disease Myocardial infarction Denies family history of Prostate cancer Breast cancer Colorectal cancer Social History Preferred Language: Urdu Communication Ability: Effective [employer] Required: No Beliefs That Will Affect Care: None marital status: Current Living Situation: Spouse current occupational status: retired Feels Safe at Home: Yes Smoking Status: Former smoker Tobacco Type: cigarettes ; Age Started Using Tobacco: 19 ; Second Hand Exposure: No ; Hx Alcohol Use: Yes Alcohol type: wine Hx Substance Use: No Childhood Exposure to Second-Hand Smoke: No Review of Systems Review of Systems: Pertinent positives and negatives reviewed in HPI--all others negative Physical Exam Constitutional: WD/WN, vitals as above Eyes: normal visual roberts by confrontation and + anicteric sclerae Neck: normal visual inspection and trachea midline Respiratory: normal respiratory effort, lungs clear to auscultation Cardiovascular: Rate/Rhythm: regular rate and regular rhythm Gastrointestinal (Abdomen): Inspection/Auscultation: abdomen not distended Percussion/Palpation: abdomen soft; abdomen nontender Musculoskeletal: Head/Neck/Chest: normocephalic and head atraumatic negative for edema, peripheral pulses intact Skin: no rashes, warm and dry Neurologic: awake; not confused Speech / Cognition: normal speech Psychiatric: A+Ox3, euthymic affect Results & Data Results & Data ([facility]) Vital Signs (Past 12 Hours) Vital Signs Temp Pulse Pulse Resp BP BP Pulse Ox 02/23/20 18:00 81 20 127/74 95 02/23/20 16:47 89 20 132/79 97 02/23/20 14:28 86 20 114/71 95 02/23/20 13:18 95 02/23/20 12:33 37.5 C 99 H 20 113/61 95 Diagnostic Findings CXR: neg for acute ECG Rhythm: normal sinus Code Status & VTE Plan Code Status Full code VTE Prophylaxis Plan VTE Prophylaxis will be ordered: Yes PG Care Time/CCT Total # of Minutes Spent Total Time Spent with Patient: Total time spent is greater than 50% in coordination of care (as documented) at patient's floor/unit and/or counseling patient: Coding Level of Care Code 32854 OBS Care - Level 3 Diagnoses Generalized weakness R53.1 Hypokalemia E87.6 COVID-19 virus test result unknown Z20.828 Osteoarthritis of right hip M16.11 Hypercholesterolemia E78.00 DVT prophylaxis Z29.9
[2020-02-23] MEDS ORDERED: SIMVASTATIN 80 MG TAB PO SCH (22:02)
[2020-02-23] MEDS ORDERED: ACETAMINOPHEN 325 MG TAB PO PRN (22:02)
[2020-02-23] MEDS ORDERED: POTASSIUM PHOS 3 MMOL/1 ML INFUSION IV STA (22:02)
[2020-02-23] MEDS ORDERED: MELOXICAM 7.5 MG TAB PO PRN (22:02)
[2020-02-23] MEDS ORDERED: MAGNESIUM HYDROXIDE SUSP 30 ML UDC PO PRN (22:02)
[2020-02-23] MEDS ORDERED: NSS + 20MEQ KCL 20 MEQ/1,000 ML BAG IV SCH (22:02)
[2020-02-23] MEDS ORDERED: OXYCODONE/ACETAMINOPHEN 5mg/325mg TAB PO PRN (22:02)
[2020-02-23] MEDS ORDERED: ONDANSETRON INJ 2 MG/ML 2 ML VIAL IV PRN (22:02)
[2020-02-23] MEDS ORDERED: HYDROCODONE/ACETAMOPHEN 5/325MG TAB PO PRN (22:14)
[2020-02-23] MEDS ORDERED: ONDANSETRON 4 MG OD TAB PO PRN (22:15)
[2020-02-23] MEDS ORDERED: POTASSIUM PHOSPHATE 9 MMOL in SODIUM CHLORIDE 0.9% 250 ML IV ONE (22:15)
[2020-02-23] MEDS: TIMOLOL MALEATE 0.25% OP SOLN 5 ML BTL OP SCH (23:06)
[2020-02-24] MEDS ORDERED: CEFDINIR 300 MG CAP PO SCH
[2020-02-24 08:08] LABS: Hematocrit (blood only) 32.3 % (37-47); Hemoglobin 11.1 g/dL (12.0-16.0); Mean Corpuscular Hgb Conc 34.4 g/dL (32-36); Mean Corpuscular Volume 90.2 fL (80-100); RDW Coefficient of Variation 14.6 % (11.5-14.5); RDW Standard Deviation 48.2 fL (36.4-46.3); Red Blood Count 3.58 M/uL (4.2-5.4); White Blood Count 7.92 K/uL (4.8-10.8)
[2020-02-24] MEDS: TIMOLOL MALEATE 0.25% OP SOLN 5 ML BTL OP SCH (08:12)
[2020-02-24 08:57] LABS: BUN Creatinine Ratio 27.7 (10-20); Calcium 7.9 mg/dl (8.5-10.1); Creatinine Clr Calc Pharmacy 86.2 ml/min; Est GFR (African American) 106.7; Est GFR (Non-African American) 92.1; Potassium 3.2 mmol/L (3.5-5.1)
[2020-02-24] MEDS ORDERED: ASPIRIN 81 MG ECTAB PO SCH (09:00)
[2020-02-24] MEDS ORDERED: EZETIMIBE 10 MG TABLET PO SCH (09:00)
[2020-02-24] MEDS ORDERED: MULTIVITAMIN TAB PO SCH (09:00)
[2020-02-24] MEDS ORDERED: CALCIUM 600MG + VIT D 400 IU TAB PO SCH (09:00)
[2020-02-24] MEDS ORDERED: CEROVITE ADV FORMULA TAB PO SCH (09:00)
[2020-02-24 09:11] LABS: Mean Platelet Volume 11.1 fL (7.4-10.4); Platelet Count 99 K/uL (130-400)
[2020-02-24 09:12] LABS: ALC (manual) 2.93 K/uL (1.2-3.4); ANC (manual) 4.67 K/uL (1.4-6.5); Echinocytes 1+; Lymphocytes # (manual) 1.03 K/uL (1.2-3.4); Monocytes # (manual) 0.32 K/uL (0.11-0.59); Neutrophils # (manual) 4.67 K/uL (1.4-6.5)
[2020-02-24] MEDS ORDERED: INSULIN ASPART 100 UNITS/ML 3 ML PEN SC STA (11:46)
[2020-02-24] MEDS ORDERED: INSULIN GLARGINE SOLOSTAR 100 UNITS/ML 3 ML PEN SC STA (11:46)
[2020-02-24] MEDS ORDERED: CEFDINIR 300 MG CAP PO STA (11:59)
--- NOTE | 2020-02-24 12:38 | Electrocardiogram Report ---
Test Reason : Blood Pressure : / mmHG Vent. Rate : 086 BPM Atrial Rate : 086 BPM P-R Int : 196 ms QRS Dur : 098 ms QT Int : 364 ms P-R-T Axes : 033 061 044 degrees QTc Int : 435 ms Normal sinus rhythm QS V1 -V2 likely secondary to lead placement Abnormal ECG When compared with ECG of 22-AUG-2017 10:44, T wave amplitude has decreased in Anterior leads Confirmed by Ray Leblanc ([id number]) on 02/24/2020 12:38:13 PM Referred By: REFERRED SELF Confirmed By:Ray Leblanc
[2020-02-24] MEDS ORDERED: cefTRIAXone SODIUM 1,000 MG in DEXTROSE 5% 50 ML IV SCH (18:00)
--- NOTE | 2020-02-24 18:04 | Discharge Summary ---
Date of Service February 24, 2020 Admission HPI Per Admitting Provider 80 y/o F c/o weakness. Pt states she has been feeling weak and run down for about a week and it is getting worse. Pt was having fever, n/v/d. She has not been able to or wanted any PO. She was seen by PCP on 02/19 and advised to come to the ED at that time, but declined. The only testing done was a COVID swab, which is still pending. No loss of taste or smell. Pt received IVF and abx in the ED. She states she feels better and is hungry for the first time in a week. Pt has had no travel. She has not left her house other than to go to doctor's appts. She has no travel and no sick contacts. She lives with her and she has no sx. She has had contact with no one who has been tested for COVID that she is aware. Principal Diagnosis UTI Discharge Exam Constitutional WD/WN, vitals as above Eyes EOM intact bilaterally; no conjunctival abnormality ENMT external ear and nose normal, oropharynx normal Neck trachea midline, no thyromegaly normal visual inspection Respiratory normal respiratory effort, lungs clear to auscultation no respiratory distress Cardiovascular RRR, no murmur, no edema Gastrointestinal (Abdomen) Inspection/Auscultation: abdomen normal to inspection; abdomen not distended Musculoskeletal no cyanosis or clubbing, extremities motor strength 5/5 Skin no rashes, warm and dry Neurologic moves all extremities and awake Psychiatric Orientation: alert, oriented to person and cooperative Discharge Data Allergies Allergy/AdvReac Type Severity Reaction Status Date / Time morphine AdvReac Mild NAUSEA Verified 02/12/20 09:31 VOMITING levothyroxine AdvReac Unknown Unknown Verified 02/12/20 09:31 Consultations 02/23/20 18:18 ED Decision to Admit Stat 02/23/20 22:02 Consult Case Management - Discharge Planning Routine Hospital Course (1) Generalized weakness: Likely related to UTI. Improved with antibiotics. - Improved on ceftriaxone -> Discharged on 5 additional days of cefdinir. Appears uncomplicated as her WBC was normal, vitals normal. Only symptom is general weakness. (2) Hypokalemia: Replaced via IV. - Repeat BMP in 1-2 weeks with PCP. (3) COVID-19 virus test result unknown: Pt is very low risk for COVID. Testing negative while still in the hospital. (4) Osteoarthritis of right hip: OR on hold due to COVID. - Continue conservative care (5) Hypercholesterolemia: Continue home meds (6) DVT prophylaxis: SCDs, ambulation given likely short duration of admission Total Time Total Time Spent Total Time Spent (In Minutes): 35 Discharge Plan Discharge Items Patient Disposition: Home - Self-Care Reason For Visit: WEAKNESS UTI Discharge Diagnosis: Urinary tract infection Activity: Resume your previous activity Non-emergency contact: Primary Care Provider Call non-emergency contact if: your pain is not controlled and your temperature is above 101 Follow-up/Referrals: Iván Raphael III, MD [Primary Care Provider] - Diet: Heart Healthy Addtl Attending Provider Instructions: You were admitted with weakness from a UTI. Overall, you have improved quickly on IV antibiotics, and we are going to give you another few days of antibiotics to help get rid of the bacteria. Your first dose should be tonight before bedtime. We are giving you one tablet, so that you do not have to get to your pharmacy on . In good news, your Covid (coronavirus) testing is negative. Please follow up with your PCP within a week to be sure you are getting better. I'm sorry your hip is so painful for you. I wish you the best of luck getting the surgery done with Dr. Lucero! Pending Studies at Discharge: No Stand-Alone Forms: [facility] Sm[facility] C[facility] Medications and DC Order Prescriptions: New cefdinir 300 mg capsule 300 mg PO BID 5 Days Qty: 10 RF: 0 Continued ezetimibe [Zetia] 10 mg tablet 10 mg PO DAILY Qty: 30 RF: 11 hydrocortisone 2.5 % ointment 1 applic topical HS Qty: 28.35 RF: 1 simvastatin 80 mg tablet 80 mg PO HS Qty: 30 RF: 11 fluocinolone acetonide oil 0.01 % drops 5 drops otic (ear) BID PRN (Reason: itching) Qty: 20 RF: 6 hydrocodone-acetaminophen 5-325 mg tablet 1 tab PO Q6H PRN (Reason: Pain) Qty: 30 RF: 0 oxycodone-acetaminophen [Percocet] 5-325 mg tablet 1 tab PO Q6H PRN (Reason: pain) Qty: 40 RF: 0 meloxicam 15 mg tablet 15 mg PO DAILY PRN (Reason: pain) Qty: 30 RF: 5 ondansetron 4 mg tablet,disintegrating 4 mg PO Q6H PRN (Reason: nausea and vomiting) Qty: 30 RF: 1 multivitamin Tablet 1 tab PO DAILY RF: 0 calcium carbonate [Calcium 600] 600 mg calcium (1,500 mg) Tablet 600 mg PO DAILY RF: 0 timolol maleate (PF) 0.25 % Dropperette 1 drp OPHTHALMIC (EYE) BID RF: 0 PreserVision AREDS 7,160-113-100 [id number] Tablet 1 tab PO BID RF: 0 aspirin 81 mg Tablet,Delayed Release (Dr/Ec) 81 mg PO DAILY RF: 0 Discharge Orders: Discharge Order (Routine); Ordered 02/24/20 Ordered By: Hayden Engel Admission Data Admit Date/Time: 02/23/20 18:45 Attending Provider: Hayden Engel Admit Provider: Nereida Oro Primary Care Provider: Iván Raphael III Other Providers: Hayden Engel Other Interventions: Discharge Summary Assessment (RN) Last Done: 02/24/20 13:27 DC Date/Time DO NOT enter until pt leaves facility: 02/24/20 13:50 Coding Level of Care Code 72247 OBS Care - Discharge Diagnoses Generalized weakness R53.1 Hypokalemia E87.6 COVID-19 virus test result unknown Z20.828 Osteoarthritis of right hip M16.11 Hypercholesterolemia E78.00 DVT prophylaxis Z29.9
[2020-02-24] MEDS ORDERED: HYDROCORTISONE 2.5% CR 30 GM TUBE EXT SCH (21:00)
== END 2020-02-24 13:50 | disposition home or self-care (01) ==
LOC: ED 12:27 → 2S 12:27 → SUATTDRO 18:45 → 2S 21:25

== ENCOUNTER 2020-03-05 17:38 | Inpatient (IN) ==
[2020-03-05] MEDS ORDERED: SODIUM CHLORIDE 0.9% 1000ML 2,000 ML IV ONE (17:58)
--- NOTE | 2020-03-05 17:58 | Emergency Department Note ---
Impression & Plan Fever, Tachycardia, Vomiting ED Provider Note NAME: BIRGIT VANESSA AGE: 80 SEX: F : 1940 ARRIVES VIA: Walk-In INFORMANT: Patient ED PROVIDER(S): Ayo Morocho DO CHIEF COMPLAINT: Fever HPI: Patient is a 80-year-old female who was recently admitted and discharged for UTI. She presents to the ER as she has not been feeling well for the past 2 days. She notes she has been having nausea vomiting diarrhea persistently for the past 2 days. Difficulty keeping much down. She has no belly pain. No cough runny nose or fevers. She notes that she recently tested negative for coronavirus. She took the full course of her antibiotics for UTI. She denies any dysuria urgency or frequency. No other exacerbating or remitting factors. She does note that she had some vague mid abdominal pain. ROS: See above HPI for pertinent positives & negatives. A total of 10 systems reviewed and were otherwise negative. PAST MEDICAL HISTORY:See Below PAST SURGICAL HISTORY:See Below FAMILY HISTORY:See Below SOCIAL HISTORY:See Below HOME MEDICATIONS:See Below ALLERGIES:See Below VITALS:See Below PHYSICAL EXAMINATION: GENERAL: Sitting up in bed, alert, with vomit on her shirt, disheveled EYE EXAM: normal conjunctiva. PERRL and EOM's grossly intact. OROPHARYNX: no exudate, no erythema, lips, buccal mucosa, and tongue normal and mucous membranes are dry NECK: supple, no nuchal rigidity, no adenopathy, non-tender LUNGS: Clear to auscultation. Normal chest wall mechanics HEART: no murmurs, S1 normal and S2 normal ABDOMEN: abdomen soft, non-tender, normo-active bowel sounds, no masses, no rebound or guarding. BACK: Back is symmetrical on inspection and there is no deformity, no midline tenderness, no CVA tenderness. SKIN: no rashes and no bruising UPPER EXTREMITIES: upper extremities are grossly normal. LOWER EXTREMITIES: No pitting edema. NEURO EXAM: Normal sensorium, cranial nerves II-XII grossly intact, normal speech, no gross weakness of arms, no gross weakness of legs. MEDICAL DECISION MAKING: Patient is a 80-year-old female who presents the ER for weakness associated with nausea vomiting and some vague mid abdominal pain. Symptoms have been present for the past 2 days. Fevers as high as 101-102. Patient was febrile and tachycardic upon arrival. IV was established with orders obtained and shows leukocytosis of 14,000. No significant anemia. INR was unremarkable. BMP with mild hyponatremia. Lactate was normal. LFTs bilirubin and troponin was negative. UA was contaminated with multiple epithelial cells. CT abdomen pelvis was fairly unremarkable. Patient was given 2 L IV fluids, Tylenol, and IV Rocephin. Previous urine cultures were reviewed. Patient was updated bedside. Discussed with hospitalist as she was febrile tachycardic with a white count and sepsis secondary to unknown origin at this time. She had no respiratory symptoms. Chest x-ray unremarkable. One episode of diarrhea and doubt C. difficile at this time. Triage Nursing notes reviewed. Prior medical records reviewed Vital Signs: reviewed and remarkable for febrile and tachycardic Differential diagnosis: Differential diagnosis includes etiologies such as sepsis, UTI, pneumonia, metabolic, electrolyte abnormalities, cardiac sources, intracerebral event, toxi cologic, neurological, as well as others were entertained. ER treatment provided: See below Diagnostics interpreted by me: ECG: Sinus tachycardia rate of 100 Normal axis Low voltage No PVCs Septal Q waves Cardiac Monitoring: An order was placed for continuous cardiac monitoring. The monitor shows a rate of 115 with sinus rhythm. Laboratory studies: As stated above and show below. Imaging studies: Portable AP upright 1 view of the chest shows no focal infiltrate or pneumothorax. Consultation(s): Discussed with hospitalist for admission. ED COURSE: Procedures: none Critical Care: None Past Med/Surg History Social History Preferred Language: Wolof Communication Ability: Effective Director Of Accounting Required: No Beliefs That Will Affect Care: None marital status: Current Living Situation: Spouse current occupational status: retired Feels Safe at Home: Yes Smoking Status: Never smoker Tobacco Type: cigarettes ; Age Started Using Tobacco: 19 ; Second Hand Exposure: No ; Hx Alcohol Use: Yes Alcohol type: wine Hx Substance Use: No Childhood Exposure to Second-Hand Smoke: No Allergies Allergies Allergy/AdvReac Type Severity Reaction Status Date / Time ondansetron [From Zofran] Allergy Severe Vomiting Verified 03/05/20 18:05 morphine AdvReac Mild NAUSEA Verified 03/05/20 18:05 VOMITING levothyroxine AdvReac Unknown Unknown Verified 03/05/20 18:05 Home Meds Home Medications Medication Instructions Recorded Confirmed PreserVision AREDS 1 tab PO BID 02/21/19 03/05/20 calcium carbonate [Calcium 600] 600 mg PO QAM 02/21/19 03/05/20 multivitamin 1 tab PO QAM 02/21/19 03/05/20 timolol maleate (PF) 1 drp OPHTHALMIC (EYE) BID 02/21/19 03/05/20 aspirin 81 mg PO HS 02/23/20 03/05/20 ezetimibe [Zetia] 10 mg PO QAM 03/05/20 03/05/20 Previous Rx's Medication Instructions Recorded simvastatin 80 mg tablet 80 mg PO HS #30 tab 06/18/19 meloxicam 15 mg tablet 15 mg PO DAILY PRN #30 tab 07/18/19 fluocinolone acetonide oil 0.01 % 5 drops OTIC (EAR) BID PRN #20 ml 11/11/19 ear drops hydrocodone 5 mg-acetaminophen 325 1 tab PO Q6H PRN #30 tab 12/11/19 mg tablet oxycodone-acetaminophen 5 mg-325 1 tab PO Q6H PRN #40 tab 02/04/20 mg tablet Results & Data (ED) Vital Signs Vital Signs - 24 hr 03/05/20 17:41 03/05/20 17:45 03/05/20 20:34 Temperature 38.6 C H Temperature Source Oral Pulse Rate 113 H Pulse Rate [Apical] 86 Respiratory Rate 20 18 Respiratory Effort / Characteristics Non-Labored Spontaneous Respiratory Depth Normal Blood Pressure 141/80 H Blood Pressure [Right Arm] 132/79 Blood Pressure Mean 100 Blood Pressure Mean [Right Arm] 96 Blood Pressure Position Sitting Blood Pressure Position [Right Arm] Lying Pulse Oximetry 96 96 Oxygen Delivery Method Room Air Room Air Room Air Sepsis Recent Fever Within 48 Hours No Sepsis New/Unexplained Change in Mental Status No Sepsis Action Taken by Nursing No Action Required 03/05/20 22:02 Temperature 37.4 C Temperature Source Oral Pulse Rate 82 Pulse Rate [Apical] Respiratory Rate 18 Respiratory Effort / Characteristics Respiratory Depth Blood Pressure 129/87 Blood Pressure [Right Arm] Blood Pressure Mean Blood Pressure Mean [Right Arm] Blood Pressure Position Blood Pressure Position [Right Arm] Pulse Oximetry 96 Oxygen Delivery Method Sepsis Recent Fever Within 48 Hours Sepsis New/Unexplained Change in Mental Status Sepsis Action Taken by Nursing Laboratory Data Result diagrams: 03/05/20 18:12 03/05/20 18:12 Lab Results 03/05/20 03/05/20 03/05/20 Range/Units 18:12 18:12 18:12 WBC 14.04 H (4.8-10.8) K/uL RBC 4.17 L (4.2-5.4) M/uL Hgb 12.8 (12.0-16.0) g/dL Hct 38.3 (37-47) % MCV 91.8 (80-100) fL MCH 30.7 (25-34) pg MCHC 33.4 (32-36) g/dL RDW Std Deviation 52.6 H (36.4-46.3) fL RDW Coeff of Jake 15.6 H (11.5-14.5) % Plt Count 465 H (130-400) K/uL MPV 10.2 (7.4-10.4) fL Immature Gran % (Auto) 0.4 % Neut % (Auto) 74.9 % Lymph % (Auto) 17.2 % [place] % (Auto) 7.2 % Eos % (Auto) 0.0 % Baso % (Auto) 0.3 % Immature Gran # (Auto) 0.05 H (0.00-0.02) K/uL Neut # (Auto) 10.53 H (1.4-6.5) K/uL Lymph # (Auto) 2.41 (1.2-3.4) K/uL [place] # (Auto) 1.01 H (0.11-0.59) K/uL Eos # (Auto) 0.00 (0-0.5) K/uL Baso # (Auto) 0.04 (0-0.2) K/uL PT 11.6 (9.0-12.0) Seconds INR 1.1 (0.9-1.1) APTT 29.5 (21.0-31.0) Seconds PTT Ratio 1.1 Sodium 132 L (136-145) mmol/L Potassium 3.6 (3.5-5.1) mmol/L Chloride 99 (98-107) mmol/L Carbon Dioxide 25 (21-32) mmol/L Anion Gap 8.0 (3-11) BUN 11 (7-18) mg/dl Creatinine 0.74 (0.6-1.2) mg/dl Est Cr Clr Drug Dosing Not Reportable Est GFR ( Amer) 89.3 Est GFR (Non-Af Amer) 77.1 BUN/Creatinine Ratio 15.3 (10-20) Glucose 123 H (70-99) mg/dl Lactate (0.4-2.0) mmol/L Calcium 8.6 (8.5-10.1) mg/dl Magnesium 2.1 (1.8-2.4) mg/dl Total Bilirubin 0.4 (0.2-1) mg/dl AST 23 (15-37) U/L ALT 25 (12-78) U/L Alkaline Phosphatase 75 (45-117) U/L Troponin I < 0.015 (0-0.045) ng/ml Total Protein 7.7 (6.4-8.2) gm/dl Albumin 3.1 L (3.4-5.0) gm/dl Globulin 4.6 H (2.5-4.0) gm/dl Albumin/Globulin Ratio 0.7 L (0.9-2) Urine Color Urine Appearance (Clear) Urine pH (4.5-7.5) Ur Specific [place] (1.000-1.030) Urine Protein (Negative) Urine Glucose (UA) (Negative) Urine Ketones (Negative) Urine Blood (Negative) Urine Nitrite (Negative) Urine Bilirubin (Negative) Urine Urobilinogen (Negative) Ur Leukocyte Esterase (Negative) Urine WBC (Auto) (0-5) /hpf Urine RBC (Auto) (0-4) /hpf U Hyaline Cast (Auto) (0-5) /lpf U Epithel Cells (Auto) (0-5) /lpf Urine Bacteria (Auto) (Negative) 03/05/20 03/05/20 Range/Units 18:12 19:00 WBC (4.8-10.8) K/uL RBC (4.2-5.4) M/uL Hgb (12.0-16.0) g/dL Hct (37-47) % MCV (80-100) fL MCH (25-34) pg MCHC (32-36) g/dL RDW Std Deviation (36.4-46.3) fL RDW Coeff of Jake (11.5-14.5) % Plt Count (130-400) K/uL MPV (7.4-10.4) fL Immature Gran % (Auto) % Neut % (Auto) % Lymph % (Auto) % [place] % (Auto) % Eos % (Auto) % Baso % (Auto) % Immature Gran # (Auto) (0.00-0.02) K/uL Neut # (Auto) (1.4-6.5) K/uL Lymph # (Auto) (1.2-3.4) K/uL [place] # (Auto) (0.11-0.59) K/uL Eos # (Auto) (0-0.5) K/uL Baso # (Auto) (0-0.2) K/uL PT (9.0-12.0) Seconds INR (0.9-1.1) APTT (21.0-31.0) Seconds PTT Ratio Sodium (136-145) mmol/L Potassium (3.5-5.1) mmol/L Chloride (98-107) mmol/L Carbon Dioxide (21-32) mmol/L Anion Gap (3-11) BUN (7-18) mg/dl Creatinine (0.6-1.2) mg/dl Est Cr Clr Drug Dosing Est GFR ( Amer) Est GFR (Non-Af Amer) BUN/Creatinine Ratio (10-20) Glucose (70-99) mg/dl Lactate 1.0 (0.4-2.0) mmol/L Calcium (8.5-10.1) mg/dl Magnesium (1.8-2.4) mg/dl Total Bilirubin (0.2-1) mg/dl AST (15-37) U/L ALT (12-78) U/L Alkaline Phosphatase (45-117) U/L Troponin I (0-0.045) ng/ml Total Protein (6.4-8.2) gm/dl Albumin (3.4-5.0) gm/dl Globulin (2.5-4.0) gm/dl Albumin/Globulin Ratio (0.9-2) Urine Color Dark Yellow Urine Appearance Cloudy A (Clear) Urine pH 5.5 (4.5-7.5) Ur Specific [place] 1.023 (1.000-1.030) Urine Protein 2+ H (Negative) Urine Glucose (UA) Negative (Negative) Urine Ketones 2+ H (Negative) Urine Blood Negative (Negative) Urine Nitrite Negative (Negative) Urine Bilirubin Negative (Negative) Urine Urobilinogen Negative (Negative) Ur Leukocyte Esterase 1+ H (Negative) Urine WBC (Auto) >30 H (0-5) /hpf Urine RBC (Auto) 5-10 H (0-4) /hpf U Hyaline Cast (Auto) 10-30 H (0-5) /lpf U Epithel Cells (Auto) >30 H (0-5) /lpf Urine Bacteria (Auto) Negative (Negative) Administered Medications Ioversol (Optiray 320 100ml) 90 ml IV ONCE PRN PRN Reason: Interaction Checking Stop: 03/09/20 20:22 Last Admin: 03/05/20 20:23 Dose: 90 ml Documented by: [id number] Discontinued Medications Acetaminophen (Tylenol) 650 mg PO NOW STA Stop: 03/05/20 18:18 Last Admin: 03/05/20 19:35 Dose: Not Given Documented by: [id number] Sodium Chloride (Nss 1000ml) 2,000 mls @ 999 mls/hr IV .Q2H1M ONE Stop: 03/05/20 19:58 Last Admin: 03/05/20 19:35 Dose: 999 mls/hr Documented by: [id number] Ceftriaxone Sodium (Rocephin) 1,000 mg in 50 mls @ 100 mls/hr IV NOW STA Stop: 03/05/20 19:20 Last Admin: 03/05/20 19:34 Dose: 100 mls/hr Documented by: [id number] Discharge Plan Visit Data Chief Complaint: Illness Stated Complaint: FEVER, N/V, DIARRHEA, ABD. PAIN ED Provider: Ayo Morocho Discharge Problem: Fever, Tachycardia, Vomiting Discharge Instructions Interventions: ED Discharge Assessment Last Done: 03/05/20 22:02 Forms Stand Alone Forms: My [facility] [place] Prescriptions Prescriptions: No Action simvastatin 80 mg tablet 80 mg PO HS Qty: 30 RF: 11 fluocinolone acetonide oil 0.01 % drops 5 drops otic (ear) BID PRN (Reason: itching) Qty: 20 RF: 6 hydrocodone-acetaminophen 5-325 mg tablet 1 tab PO Q6H PRN (Reason: Pain) Qty: 30 RF: 0 oxycodone-acetaminophen [Percocet] 5-325 mg tablet 1 tab PO Q6H PRN (Reason: pain) Qty: 40 RF: 0 meloxicam 15 mg tablet 15 mg PO DAILY PRN (Reason: pain) Qty: 30 RF: 5 ezetimibe [Zetia] 10 mg tablet 10 mg PO QAM RF: 0 multivitamin Tablet 1 tab PO QAM RF: 0 calcium carbonate [Calcium 600] 600 mg calcium (1,500 mg) Tablet 600 mg PO QAM RF: 0 timolol maleate (PF) 0.25 % Dropperette 1 drp OPHTHALMIC (EYE) BID RF: 0 PreserVision AREDS 7,160-113-100 [id number] Tablet 1 tab PO BID RF: 0 aspirin 81 mg Tablet,Delayed Release (Dr/Ec) 81 mg PO HS RF: 0 Referrals Referrals: Iván Raphael III, MD [Primary Care Provider] - Discharge Problem: Fever Qualifiers: Fever type: unspecified Qualified Code(s): R50.9 - Fever, unspecified Vomiting Qualifiers: Vomiting type: unspecified Vomiting Intractability: unspecified Nausea presence: unspecified Qualified Code(s): R11.10 - Vomiting, unspecified
[2020-03-05] MEDS ORDERED: ACETAMINOPHEN 325 MG TAB PO STA (18:17)
[2020-03-05 18:26] LABS: Basophils # (auto) 0.04 K/uL (0-0.2); Basophils % (auto) 0.3 %; Hematocrit (blood only) 38.3 % (37-47); Hemoglobin 12.8 g/dL (12.0-16.0); Immature Granulocytes # (auto) 0.05 K/uL (0.00-0.02); Immature Granulocytes % (auto) 0.4 %; Lymphocytes # (auto) 2.41 K/uL (1.2-3.4); Lymphocytes % (auto) 17.2 %; Mean Corpuscular Hemoglobin 30.7 pg (25-34); Mean Corpuscular Hgb Conc 33.4 g/dL (32-36); Mean Corpuscular Volume 91.8 fL (80-100); Mean Platelet Volume 10.2 fL (7.4-10.4); Monocytes # (auto) 1.01 K/uL (0.11-0.59); Monocytes % (auto) 7.2 %; Neutrophils # (auto) 10.53 K/uL (1.4-6.5); Neutrophils % (auto) 74.9 %; Platelet Count 465 K/uL (130-400); RDW Coefficient of Variation 15.6 % (11.5-14.5); RDW Standard Deviation 52.6 fL (36.4-46.3); Red Blood Count 4.17 M/uL (4.2-5.4); White Blood Count 14.04 K/uL (4.8-10.8)
[2020-03-05 18:37] LABS: INR 1.1 (0.9-1.1); Partial Thromboplastin Ratio 1.1; Partial Thromboplastin Time 29.5 Seconds (21.0-31.0); Prothrombin Time 11.6 Seconds (9.0-12.0)
--- NOTE | 2020-03-05 18:37 | XRay Report ---
SINGLE VIEW CHEST CLINICAL HISTORY: Sepsis. FINDINGS: An AP, portable, upright chest radiograph is compared to study dated 02/23/2020. The cardiom ediastinal silhouette is unremarkable noting atherosclerotic calcification of the thoracic aorta. The re is mild bibasilar atelectasis. The lungs and pleural spaces are otherwise clear. No pneumothorax i s seen. The skeletal structures are osteopenic. The bony thorax is grossly intact. A left shoulder ar throplasty is in place. IMPRESSION: No active disease in the chest. ACT 112: Negative or not required by law. Electronically signed by: Rodger Clark M.D. 03/05/2020 6:35 PM
[2020-03-05 18:43] LABS: Alanine Aminotransferase 25 U/L (12-78); Albumin Level 3.1 gm/dl (3.4-5.0); Aspartate Aminotransferase 23 U/L (15-37); BUN Creatinine Ratio 15.3 (10-20); Blood Urea Nitrogen 11 mg/dl (7-18); Calcium 8.6 mg/dl (8.5-10.1); Carbon Dioxide 25 mmol/L (21-32); Chloride 99 mmol/L (98-107); Est GFR (African American) 89.3; Est GFR (Non-African American) 77.1; Glucose 123 mg/dl (70-99); Magnesium 2.1 mg/dl (1.8-2.4); Potassium 3.6 mmol/L (3.5-5.1); Sodium 132 mmol/L (136-145)
[2020-03-05 18:48] LABS: Albumin Globulin Ratio 0.7 (0.9-2); Alkaline Phosphatase 75 U/L (45-117); Bilirubin,Total 0.4 mg/dl (0.2-1); Globulin 4.6 gm/dl (2.5-4.0); Total Protein 7.7 gm/dl (6.4-8.2); Troponin I < 0.015 ng/ml (0-0.045)
[2020-03-05] MEDS ORDERED: cefTRIAXone SODIUM 1,000 MG/50 ML BAG IV STA (18:51)
[2020-03-05 19:15] LABS: Appearance Urine Cloudy (Clear); Bacteria Urine Automated Negative (Negative); Blood Urine Negative (Negative); Color Urine Dark Yellow; Epithelial Cell Urine Auto >30 /lpf (0-5); Glucose Urine UA Negative (Negative); Ketones Urine 2+ (Negative); Leukocyte Esterase Urine 1+ (Negative); Nitrite Urine Negative (Negative); Protein Urine 2+ (Negative); Specific Gravity Urine 1.023 (1.000-1.030); Urobilinogen Urine Negative (Negative); WBC Urine Automated >30 /hpf (0-5); pH Urine 5.5 (4.5-7.5)
[2020-03-05 19:18] LABS: Bilirubin Urine Negative (Negative); Ictotest Urine Negative (Negative)
[2020-03-05] MEDS ORDERED: IOVERSOL 100ml IV PRN (20:23)
--- NOTE | 2020-03-05 20:39 | CT Scan Report ---
CT SCAN OF THE ABDOMEN AND PELVIS WITH IV CONTRAST CLINICAL HISTORY: Fever. COMPARISON STUDY: Abdominal CT dated 08/12/2019. TECHNIQUE: Following the IV administration of 90 cc of Optiray 320, CT scan of the abdomen and pelvi s is performed from the lung bases to the proximal femora. Images are reviewed in the axial, sagittal , and coronal planes. IV contrast was administered without complication. A dose lowering technique wa s utilized adhering to the principles of ALARA. The examination is degraded by motion artifact. CT DOSE: 491.99 mGy.cm FINDINGS: Lung bases: The heart is normal in size and without pericardial effusion. The coronary arteries are d ensely calcified. A small hiatal hernia is noted. The lung bases are clear. Liver: The contrast-enhanced liver is normal in size, contour, and attenuation. There is no intrahepa tic biliary ductal dilatation. The hepatic veins and portal veins are patent. Gallbladder: Unremarkable. Spleen: Normal in size and attenuation. Pancreas: Atrophic and grossly unremarkable. Adrenal glands: Unremarkable. Kidneys: The contrast enhanced kidneys demonstrate mild cortical atrophy and are without hydronephros is. There is mild fullness of the left renal pelvis. Parapelvic cysts are noted bilaterally. The kidn eys enhance symmetrically. Abdominal vasculature: The abdominal aorta is normal in course and caliber noting moderate to advance d atherosclerotic calcification. Bowel: There is moderate sigmoid diverticulosis without CT evidence of acute diverticulitis. No bowel obstruction is seen. Mild mucosal hyperemia is suggested throughout the colon with faint pericolonic infiltration. The appendix is well-visualized and normal. Peritoneum: There is no intraperitoneal free air or abdominal ascites. There is a small fat-containin g umbilical hernia. Lymphadenopathy: None. Pelvic viscera: The the bladder is normal as imaged. The endometrium appears thickened for age measur ing up to 11 mm. A small calcified uterine fibroid is noted. No adnexal lesion is seen Skeletal structures: The skeletal structures are osteopenic. Advanced osteoarthritic change is seen i n the right hip. There is moderate lumbosacral spondylosis. There are bilateral pars defects at L5. N o lytic or blastic lesions are seen. IMPRESSION: 1. Question a mild nonspecific colitis. Clinical correlation will be required. 2. The endometrium appears thickened for age measuring up to 11 mm in thickness. This is not well nery luated by CT, and a nonemergent pelvic ultrasound and gynecology follow-up is recommended. 3. Additional findings as above. ACT 112: Positive. There are findings on this exam that require communication between the performing entity and the patient following Patient Test Result Information Act ([place] Act 112) guidelines. Electronically signed by: Rodger Clark M.D. 03/05/2020 8:37 PM
--- NOTE | 2020-03-05 21:36 | History & Physical Report ---
Date of Service March 05, 2020 Assessment & Plan (1) Nausea & vomiting: Teena is a 80-year-old female with a past medical history of chronic osteoarthritis, bilateral knee replacement, left shoulder replacement, prior stroke syndrome, anemia, hypercholesterolemia, and recent UTI who presents for increasing fever, chills, sweats and feelings of unwellness with nausea/vomiting and increasingly liquid bowel movements after completing a course of antibiotics for cystitis. Nausea/vomiting/diarrhea suspicious for C. difficile colitis Patient with 2 to 3 days of worsening nausea with some vomiting and increasing liquid diarrhea. Recently treated with 7-day course of cefdinir for cystitis. Leukocytosis to 14, creatinine normal, no prior episodes of Clostridium infection Zofran PRN NSS plus KCl 125 cc/h C. diff pending - Tx empiric x48 with vancomycin 125mg q6h, if c. diff positive extend for full course of tx - Contact precautions - BMP daily - CBC daily Prior Cystitis - UA contaminated - Low suspicion for peristant UTI. 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 - No acute change - Meloxicam 15mg daily PRN HLD - Continue ezetimbe, simvastatin as above IVFM: NSS+20KCl 125cc/hr DVT Prophylaxis: Lovenox Diet: Heart Healthy as tolerated Dispo: Med/Surg Code Status: Full Code (2) Generalized weakness: (3) Carotid artery stenosis: (4) Impaired fasting glucose: (5) Stroke syndrome: (6) Hypercholesterolemia: (7) Arteriosclerotic cardiovascular disease (ASCVD): (8) Anemia: History of Present Illness Chief Complaint: Nausea, vomiting, fever, chills Primary Care Provider: Iván Raphael MD Teena is a 80-year-old female with a past medical history of chronic osteoarthritis, bilateral knee replacement, left shoulder replacement, prior stroke syndrome, anemia, hypercholesterolemia, and recent UTI who presents for increasing fever, chills, sweats and feelings of unwellness with nausea/vomiting and increasingly liquid bowel movements after completing a course of antibiotics for cystitis. Teena reports that she was recently in the hospital over for diarrhea and vomiting and was admitted for an overnight stay and treated for a urinary tract infection. She was discharged and completed a total 7-day course of antibiotics with cefdinir. She reports that she felt well after this and returned to her near baseline level of health but 2 to 3 days ago developed increasing stomach discomfort and loose bowels. She has had associated fever, chills, and night sweats. She has had nausea and vomiting, emesis is without blood or bile and is typically clearish/yellow. Her bowel movements have become increasingly loose/liquid and her last one approximately 15 minutes prior was almost completely liquid. She denies back pain or flank pain. She endorses that she has still urinated 2-3 times per night which is slightly unusual, but she has not had other dysuria or daytime polyuria. She denies chest pain, chest pressure, shortness of breath, difficulty breathing, syncope, presyncope. She feels globally weak and a little bit lightheaded. Rash. She denies bright red blood per rectum and melena. Medical history: Reviewed Surgical history: Reviewed Allergies: Reviewed Social: Denies tobacco use, denies alcohol use, denies recreational drug use. She lives at home and always has someone in the house with her, no prior difficulties with ambulation although she notes she does have severe osteoarthritis that is pending a right hip replacement. CODE STATUS: Full code Allergies Allergy/AdvReac Type Severity Reaction Status Date / Time ondansetron [From Zofran] Allergy Severe Vomiting Verified 03/05/20 18:05 morphine AdvReac Mild NAUSEA Verified 03/05/20 18:05 VOMITING levothyroxine AdvReac Unknown Unknown Verified 03/05/20 18:05 Home Medications Home Medications Medication Instructions Recorded Confirmed Type PreserVision AREDS 1 tab PO BID 02/21/19 03/05/20 History calcium carbonate [Calcium 600] 600 mg PO QAM 02/21/19 03/05/20 History multivitamin 1 tab PO QAM 02/21/19 03/05/20 History timolol maleate (PF) 1 drp OPHTHALMIC (EYE) BID 02/21/19 03/05/20 History simvastatin 80 mg tablet 80 mg PO HS #30 tab 06/18/19 03/05/20 Rx meloxicam 15 mg tablet 15 mg PO DAILY PRN #30 tab 07/18/19 03/05/20 Rx fluocinolone acetonide oil 0.01 % 5 drops OTIC (EAR) BID PRN #20 ml 11/11/19 03/05/20 Rx ear drops hydrocodone 5 mg-acetaminophen 325 1 tab PO Q6H PRN #30 tab 12/11/19 03/05/20 Rx mg tablet oxycodone-acetaminophen 5 mg-325 1 tab PO Q6H PRN #40 tab 02/04/20 03/05/20 Rx mg tablet aspirin 81 mg PO HS 02/23/20 03/05/20 History ezetimibe [Zetia] 10 mg PO QAM 03/05/20 03/05/20 History Past Med/Surg History Social History Preferred Language: Lao Communication Ability: Effective 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 Beliefs That Will Affect Care: None marital status: Current Living Situation: Spouse current occupational status: retired Feels Safe at Home: Yes Smoking Status: Never smoker Tobacco Type: cigarettes ; Age Started Using Tobacco: 19 ; Second Hand Exposure: No ; Hx Alcohol Use: Yes Alcohol type: wine Hx Substance Use: No Childhood Exposure to Second-Hand Smoke: No Review of Systems Review of Systems: Constitutional: See HPI Eyes: Denies double vision, vision change, eye pain ENT: Denies ear pain, sore throat, sinus pain Cardiovascular: Denies Chest pain, chest pressure, palpitations Respiratory: Denies shortness of breath, cough, sputum production, difficulty breathing Gastrointestinal: See HPI Genitourinary: See HPI Musculoskeletal: Endorses chronic hip pain, right hip pending replacement for severe OA. No acute change in muscle or joint pain. Integumentary:Denies rash, lesions, bruising Neurological: Denies headache, numbness, tingling, focal weakness Physical Exam Physical Exam: General: A&Ox3. NAD. Cooperative.Speech with normal volume and prosody. HEENT: Atraumatic, normocephalic.Patient extremely hard of hearing. Visual acuity grossly intact. Pupils equal and reactive to light and accommodation. Pulm: CTAB A&P. -wheezes, -rales, -rhonchi. Symmetrical chest rise. No increase work of breathing. No respiratory distress. Cardiac: RRR, -mrg. Radial pulses intact and symmetrical. Abdominal: Nontender, nondistended, soft. No rebound tenderness.BS present. Extremities: Moving all extremities equally. Sensation to soft touch intact in fingers and feet and symmetrical. [employer]othes Police Officer strength intact. Ankle dorsiflexion/plantar flexion intact with 5/5 strength. Right hip nontender to palpation. PT pulse and radial pulse intact and symmetrical. Results & Data Results & Data ([facility]) Vital Signs (Past 12 Hours) Vital Signs Temp Pulse Pulse Resp BP BP Pulse Ox 03/05/20 20:34 86 18 132/79 96 03/05/20 17:41 38.6 C H 113 H 20 141/80 H 96 Supervising Physician Co-Signing Physician Notes Patient seen and examined, chart reviewed, case discussed with Dr. Bailey and I agree with his assessment and plan as above. Briefly, patient is a 80yo C female presenting with nausea/vomiting/diarrhea/fever. She was seen by her PCP on 02/19 with complaint of loose stools, nausea and vomiting. COVID-19 testing sent at that time which was negative on 02/21/20. She was admitted to [facility] on 02/22 and found to have a UTI. Her symptoms improved with antibiotics and IVF. She returns today with worsening diarrhea, fever. On exam she is ill in appearance, NAD, facemask in place, +complainining of chills/shakes HEENT - NC/AT, PERRL, EOMI, dry MM Heart - +S1/S2, regular, no m/r/g Lungs - CTA Abd - +BS, soft, NT/ND Ext - No edema Labs and images reviewed. Significant for neutrophil predominant leukocytosis with WBC=14.04, no lymphopenia. Plt elevated at 465 CT with mild non-specific colitis Assessment/Plan - 80yo C female presenting with n/v/d, fever, leukocytosis. Non-specific colitis noted on CT. Ddx to include gastroenteritis vs colitis vs c. diff given recent antibiotic use. Very mild concern for Covid-19 given fevers/chills/shakes/n/v/d. Patient has had no recent travel, no sick contacts and negative testing in the past. Low suspicion but will test. Remainder of plan as above Resident Activity Tracking Resident Involvement: Resident Care Provided Care Provided: [facility]
[2020-03-05] MEDS ORDERED: HYDROCODONE/ACETAMOPHEN 5/325MG TAB PO PRN (22:46)
[2020-03-05] MEDS ORDERED: MELOXICAM 7.5 MG TAB PO PRN (22:46)
[2020-03-05] MEDS ORDERED: PROMETHAZINE HCL 12.5 MG in SODIUM CHLORIDE 0.9% 50 ML IV STA (23:20)
--- NOTE | 2020-03-05 23:22 | Billing Data ---
Date of Service March 05, 2020 Coding Level of Care Code 11979 OBS Care - Level 3
[2020-03-06] MEDS: NSS + 20MEQ KCL 20 MEQ/1,000 ML BAG IV SCH ×3 (00:11→16:25)
[2020-03-06] MEDS: ENOXAPARIN INJ 40 MG/0.4 ML SYR SQ SCH ×2 (00:14→22:21)
[2020-03-06] MEDS: RASPBERRY SYRUP 5 ML UDP PO SCH ×5 (00:15→23:25)
[2020-03-06] MEDS: VANCOMYCIN HCL 125 MG/2.5ML SOLN PO SCH ×5 (00:15→23:25)
[2020-03-06] MEDS: ACETAMINOPHEN 325 MG TAB PO PRN ×3 (01:56→22:06)
[2020-03-06 06:16] LABS: Basophils # (auto) 0.02 K/uL (0-0.2); Basophils % (auto) 0.2 %; Hemoglobin 10.8 g/dL (12.0-16.0); Immature Granulocytes # (auto) 0.01 K/uL (0.00-0.02); Immature Granulocytes % (auto) 0.1 %; Lymphocytes # (auto) 1.35 K/uL (1.2-3.4); Mean Corpuscular Hemoglobin 31.1 pg (25-34); Mean Corpuscular Hgb Conc 33.8 g/dL (32-36); Mean Corpuscular Volume 92.2 fL (80-100); Mean Platelet Volume 10.2 fL (7.4-10.4); Monocytes # (auto) 0.48 K/uL (0.11-0.59); Neutrophils # (auto) 7.79 K/uL (1.4-6.5); Neutrophils % (auto) 80.7 %; Platelet Count 325 K/uL (130-400); RDW Coefficient of Variation 15.7 % (11.5-14.5); RDW Standard Deviation 53.3 fL (36.4-46.3); Red Blood Count 3.47 M/uL (4.2-5.4); White Blood Count 9.65 K/uL (4.8-10.8)
[2020-03-06 06:42] LABS: Albumin Level 2.3 gm/dl (3.4-5.0); BUN Creatinine Ratio 13.9 (10-20); Calcium 7.5 mg/dl (8.5-10.1); Est GFR (African American) 99.4; Est GFR (Non-African American) 85.8; Potassium 3.2 mmol/L (3.5-5.1)
[2020-03-06 06:45] LABS: Albumin Globulin Ratio 0.6 (0.9-2); Bilirubin,Total 0.4 mg/dl (0.2-1); Globulin 3.8 gm/dl (2.5-4.0); Total Protein 6.1 gm/dl (6.4-8.2)
[2020-03-06] MEDS: MULTIVITAMIN TAB PO SCH (08:25)
[2020-03-06] MEDS: CALCIUM 600MG + VIT D 400 IU TAB PO SCH (08:25)
[2020-03-06] MEDS ORDERED: POTASSIUM CHLORIDE 20 MEQ TABCR PO ONE (09:00)
--- NOTE | 2020-03-06 11:33 | Hospitalist Progress Note ---
Date of Service March 06, 2020 Assessment & Plan (1) Diarrhea: Teena is a 80-year-old female with a past medical history of chronic osteoarthritis, bilateral knee replacement, left shoulder replacement, prior stroke syndrome, anemia, hypercholesterolemia, and recent UTI who presented for increasing fever, chills, sweats and feelings of unwellness with nausea/vomiting and increasingly liquid bowel movements after completing a course of antibiotics for cystitis. COVID testing negative. * CT A/P with non-specific colitis, diverticulosis without diverticulitis, faint pericolonic infiltration and thickened endometrium * Continue PO Vancomycin given improvement until results stool testing * cdiff, stool cultures, focb ordered -- awaiting sample * Temp of 39.5C this AM -- concerning for salmonella or other infectious etiology. Repeat BCx pending. Lactic 1.0. Meets sepsis criteria with Temp >38C, WBC >12k, HR 110. Temp currently still slightly elevated at 37.7C. Tylenol prn fever. * Leukocytosis resolving --> 14k on admission to [facility] * Continue IVF -- NS + KCl @ 125cc/hr * Supportive treatment * Labs in AM (2) Nausea & vomiting: * Improving. No further reported n/v today (3) Generalized weakness: * Secondary to acute illness * PT/OT in AM (4) Hypokalemia: * K 3.2 on AM labs -- given additional 20 meq PO in addition to in IVF. Viola lucio secondary to above * Continue to monitor (5) Hx-TIA (transient ischemic attack): * 8 years ago * Continue outpatient ASA 81mg, simvastatin 80mg (6) Carotid artery stenosis: * Noted (7) Hypercholesterolemia: * Chronic * Continue home ezetimbe, simvastatin (8) Arteriosclerotic cardiovascular disease (ASCVD): * Contiune home ASA, simvastatin (9) Abnormal finding on imaging: * Patient with endometrial stripe/thickening on CTAP on admission --> will need non-emergent pelvic ultrasound outpatient (10) Osteoarthritis: * Chronic. Stable Right hip OA -- continue oxycodone 5mg in lieu of outpatient oxycodone-APA while inpatient * Meloxicam 15mg prn (11) DVT prophylaxis: * SCDs, Lovenox Dispo: awaiting stool culture, likely to remain inpatient additional 1-2 days Admission and Anticipated Discharge Date Admission Date: March 05, 2020 Subjective Patient evaluated in bed this morning. States she feels better than when she came in. No further vomiting but did have episode of diarrhea this morning but denied melena. Discussed possibility of c.diff given recent antibiotic use but will continue with PO vancomycin for now until results of testing back. States she has been urinating without increased frequency or dysuria at this time. Ate some breakfast but states endorses not feeling very hungry. Denies nausea at this current time. States she has had a fever and confirms feeling sweaty last evening. Her main concern is that she does not want to go home too early and have to come right back. Denies chest pain, shortness of breath at this time. Review of Systems Review of Systems: All systems reviewed & are unremarkable except as noted in HPI & below Physical Exam Constitutional: well developed, well nourished and cooperative; no acute distress Eyes: PERRL, conjunctivae normal, anicteric sclerae ENMT: Ears: + hearing impairment (hard of hearing) Neck: trachea midline, no thyromegaly Respiratory: normal respiratory effort, lungs clear to auscultation Cardiovascular: RRR, no murmur, no edema Gastrointestinal (Abdomen): Inspection/Auscultation: abdomen normal to inspection and + hyperactive bowel sounds Percussion/Palpation: abdomen soft; abdomen nontender, no guarding and abdomen not rigid Musculoskeletal: no cyanosis or clubbing, extremities motor strength 5/5 Skin: warm, moist Neurologic: PERRL, EOMI, accommodation nl, no face palsy, no dysarthria Psychiatric: A+Ox3, euthymic affect Lymphatic: no cervical or axillary lymphadenopathy Results & Data Results & Data ([facility]) Vital Signs (Past 12 Hours) Vital Signs Temp Pulse Resp BP Pulse Ox 03/06/20 07:35 39.2 C H 110 H 18 132/73 94 03/06/20 01:58 39.5 C H 110 H 16 154/89 H 93 Laboratory Results 03/06/20 03/06/20 03/06/20 Range/Units Unknown 13:27 05:54 WBC (4.8-10.8) K/uL RBC (4.2-5.4) M/uL Hgb (12.0-16.0) g/dL Hct (37-47) % MCV (80-100) fL MCH (25-34) pg MCHC (32-36) g/dL RDW Std Deviation (36.4-46.3) fL RDW Coeff of Jake (11.5-14.5) % Plt Count (130-400) K/uL MPV (7.4-10.4) fL Immature Gran % (Auto) % Neut % (Auto) % Lymph % (Auto) % [facility] % (Auto) % Eos % (Auto) % Baso % (Auto) % Immature Gran # (Auto) (0.00-0.02) K/uL Neut # (Auto) (1.4-6.5) K/uL Lymph # (Auto) (1.2-3.4) K/uL [facility] # (Auto) (0.11-0.59) K/uL Eos # (Auto) (0-0.5) K/uL Baso # (Auto) (0-0.2) K/uL PT (9.0-12.0) Seconds INR (0.9-1.1) APTT (21.0-31.0) Seconds PTT Ratio Sodium 137 (136-145) mmol/L Potassium 3.2 L (3.5-5.1) mmol/L Chloride 107 (98-107) mmol/L Carbon Dioxide 23 (21-32) mmol/L Anion Gap 7.0 (3-11) BUN 9 (7-18) mg/dl Creatinine 0.62 (0.6-1.2) mg/dl Est Cr Clr Drug Dosing 68.0 Est GFR ( Amer) 99.4 Est GFR (Non-Af Amer) 85.8 BUN/Creatinine Ratio 13.9 (10-20) Glucose 113 H (70-99) mg/dl Lactate (0.4-2.0) mmol/L Calcium 7.5 L (8.5-10.1) mg/dl Magnesium (1.8-2.4) mg/dl Total Bilirubin 0.4 (0.2-1) mg/dl AST 19 (15-37) U/L ALT 20 (12-78) U/L Alkaline Phosphatase 57 (45-117) U/L Troponin I (0-0.045) ng/ml Total Protein 6.1 L D (6.4-8.2) gm/dl Albumin 2.3 L (3.4-5.0) gm/dl Globulin 3.8 (2.5-4.0) gm/dl Albumin/Globulin Ratio 0.6 L (0.9-2) Urine Color Urine Appearance (Clear) Urine pH (4.5-7.5) Ur Specific [place] (1.000-1.030) Urine Protein (Negative) Urine Glucose (UA) (Negative) Urine Ketones (Negative) Urine Blood (Negative) Urine Nitrite (Negative) Urine Bilirubin (Negative) Urine Urobilinogen (Negative) Ur Leukocyte Esterase (Negative) Urine WBC (Auto) (0-5) /hpf Urine RBC (Auto) (0-4) /hpf U Hyaline Cast (Auto) (0-5) /lpf U Epithel Cells (Auto) (0-5) /lpf Urine Bacteria (Auto) (Negative) Stl C. diff Tox B Gene Pending COVID-19 PCR (Negative) SARS-CoV-2 RNA (RT-PCR) Cancelled 03/06/20 03/05/20 03/05/20 Range/Units 05:54 Unknown 19:00 WBC 9.65 (4.8-10.8) K/uL RBC 3.47 L (4.2-5.4) M/uL Hgb 10.8 L (12.0-16.0) g/dL Hct 32.0 L (37-47) % MCV 92.2 (80-100) fL MCH 31.1 (25-34) pg MCHC 33.8 (32-36) g/dL RDW Std Deviation 53.3 H (36.4-46.3) fL RDW Coeff of Jake 15.7 H (11.5-14.5) % Plt Count 325 (130-400) K/uL MPV 10.2 (7.4-10.4) fL Immature Gran % (Auto) 0.1 % Neut % (Auto) 80.7 % Lymph % (Auto) 14.0 % [facility] % (Auto) 5.0 % Eos % (Auto) 0.0 % Baso % (Auto) 0.2 % Immature Gran # (Auto) 0.01 (0.00-0.02) K/uL Neut # (Auto) 7.79 H (1.4-6.5) K/uL Lymph # (Auto) 1.35 (1.2-3.4) K/uL [facility] # (Auto) 0.48 (0.11-0.59) K/uL Eos # (Auto) 0.00 (0-0.5) K/uL Baso # (Auto) 0.02 (0-0.2) K/uL PT (9.0-12.0) Seconds INR (0.9-1.1) APTT (21.0-31.0) Seconds PTT Ratio Sodium (136-145) mmol/L Potassium (3.5-5.1) mmol/L Chloride (98-107) mmol/L Carbon Dioxide (21-32) mmol/L Anion Gap (3-11) BUN (7-18) mg/dl Creatinine (0.6-1.2) mg/dl Est Cr Clr Drug Dosing Est GFR ( Amer) Est GFR (Non-Af Amer) BUN/Creatinine Ratio (10-20) Glucose (70-99) mg/dl Lactate (0.4-2.0) mmol/L Calcium (8.5-10.1) mg/dl Magnesium (1.8-2.4) mg/dl Total Bilirubin (0.2-1) mg/dl AST (15-37) U/L ALT (12-78) U/L Alkaline Phosphatase (45-117) U/L Troponin I (0-0.045) ng/ml Total Protein (6.4-8.2) gm/dl Albumin (3.4-5.0) gm/dl Globulin (2.5-4.0) gm/dl Albumin/Globulin Ratio (0.9-2) Urine Color Dark Yellow Urine Appearance Cloudy A (Clear) Urine pH 5.5 (4.5-7.5) Ur Specific [place] 1.023 (1.000-1.030) Urine Protein 2+ H (Negative) Urine Glucose (UA) Negative (Negative) Urine Ketones 2+ H (Negative) Urine Blood Negative (Negative) Urine Nitrite Negative (Negative) Urine Bilirubin Negative (Negative) Urine Urobilinogen Negative (Negative) Ur Leukocyte Esterase 1+ H (Negative) Urine WBC (Auto) >30 H (0-5) /hpf Urine RBC (Auto) 5-10 H (0-4) /hpf U Hyaline Cast (Auto) 10-30 H (0-5) /lpf U Epithel Cells (Auto) >30 H (0-5) /lpf Urine Bacteria (Auto) Negative (Negative) Stl C. diff Tox B Gene COVID-19 PCR NEGATIVE (Negative) SARS-CoV-2 RNA (RT-PCR) 03/05/20 03/05/20 03/05/20 Range/Units 18:12 18:12 18:12 WBC (4.8-10.8) K/uL RBC (4.2-5.4) M/uL Hgb (12.0-16.0) g/dL Hct (37-47) % MCV (80-100) fL MCH (25-34) pg MCHC (32-36) g/dL RDW Std Deviation (36.4-46.3) fL RDW Coeff of Jake (11.5-14.5) % Plt Count (130-400) K/uL MPV (7.4-10.4) fL Immature Gran % (Auto) % Neut % (Auto) % Lymph % (Auto) % [facility] % (Auto) % Eos % (Auto) % Baso % (Auto) % Immature Gran # (Auto) (0.00-0.02) K/uL Neut # (Auto) (1.4-6.5) K/uL Lymph # (Auto) (1.2-3.4) K/uL [facility] # (Auto) (0.11-0.59) K/uL Eos # (Auto) (0-0.5) K/uL Baso # (Auto) (0-0.2) K/uL PT 11.6 (9.0-12.0) Seconds INR 1.1 (0.9-1.1) APTT 29.5 (21.0-31.0) Seconds PTT Ratio 1.1 Sodium 132 L (136-145) mmol/L Potassium 3.6 (3.5-5.1) mmol/L Chloride 99 (98-107) mmol/L Carbon Dioxide 25 (21-32) mmol/L Anion Gap 8.0 (3-11) BUN 11 (7-18) mg/dl Creatinine 0.74 (0.6-1.2) mg/dl Est Cr Clr Drug Dosing Not Reportable Est GFR ( Amer) 89.3 Est GFR (Non-Af Amer) 77.1 BUN/Creatinine Ratio 15.3 (10-20) Glucose 123 H (70-99) mg/dl Lactate 1.0 (0.4-2.0) mmol/L Calcium 8.6 (8.5-10.1) mg/dl Magnesium 2.1 (1.8-2.4) mg/dl Total Bilirubin 0.4 (0.2-1) mg/dl AST 23 (15-37) U/L ALT 25 (12-78) U/L Alkaline Phosphatase 75 (45-117) U/L Troponin I < 0.015 (0-0.045) ng/ml Total Protein 7.7 (6.4-8.2) gm/dl Albumin 3.1 L (3.4-5.0) gm/dl Globulin 4.6 H (2.5-4.0) gm/dl Albumin/Globulin Ratio 0.7 L (0.9-2) Urine Color Urine Appearance (Clear) Urine pH (4.5-7.5) Ur Specific [place] (1.000-1.030) Urine Protein (Negative) Urine Glucose (UA) (Negative) Urine Ketones (Negative) Urine Blood (Negative) Urine Nitrite (Negative) Urine Bilirubin (Negative) Urine Urobilinogen (Negative) Ur Leukocyte Esterase (Negative) Urine WBC (Auto) (0-5) /hpf Urine RBC (Auto) (0-4) /hpf U Hyaline Cast (Auto) (0-5) /lpf U Epithel Cells (Auto) (0-5) /lpf Urine Bacteria (Auto) (Negative) Stl C. diff Tox B Gene COVID-19 PCR (Negative) SARS-CoV-2 RNA (RT-PCR) 03/05/20 Range/Units 18:12 WBC 14.04 H (4.8-10.8) K/uL RBC 4.17 L (4.2-5.4) M/uL Hgb 12.8 (12.0-16.0) g/dL Hct 38.3 (37-47) % MCV 91.8 (80-100) fL MCH 30.7 (25-34) pg MCHC 33.4 (32-36) g/dL RDW Std Deviation 52.6 H (36.4-46.3) fL RDW Coeff of Jake 15.6 H (11.5-14.5) % Plt Count 465 H (130-400) K/uL MPV 10.2 (7.4-10.4) fL Immature Gran % (Auto) 0.4 % Neut % (Auto) 74.9 % Lymph % (Auto) 17.2 % [facility] % (Auto) 7.2 % Eos % (Auto) 0.0 % Baso % (Auto) 0.3 % Immature Gran # (Auto) 0.05 H (0.00-0.02) K/uL Neut # (Auto) 10.53 H (1.4-6.5) K/uL Lymph # (Auto) 2.41 (1.2-3.4) K/uL [facility] # (Auto) 1.01 H (0.11-0.59) K/uL Eos # (Auto) 0.00 (0-0.5) K/uL Baso # (Auto) 0.04 (0-0.2) K/uL PT (9.0-12.0) Seconds INR (0.9-1.1) APTT (21.0-31.0) Seconds PTT Ratio Sodium (136-145) mmol/L Potassium (3.5-5.1) mmol/L Chloride (98-107) mmol/L Carbon Dioxide (21-32) mmol/L Anion Gap (3-11) BUN (7-18) mg/dl Creatinine (0.6-1.2) mg/dl Est Cr Clr Drug Dosing Est GFR ( Amer) Est GFR (Non-Af Amer) BUN/Creatinine Ratio (10-20) Glucose (70-99) mg/dl Lactate (0.4-2.0) mmol/L Calcium (8.5-10.1) mg/dl Magnesium (1.8-2.4) mg/dl Total Bilirubin (0.2-1) mg/dl AST (15-37) U/L ALT (12-78) U/L Alkaline Phosphatase (45-117) U/L Troponin I (0-0.045) ng/ml Total Protein (6.4-8.2) gm/dl Albumin (3.4-5.0) gm/dl Globulin (2.5-4.0) gm/dl Albumin/Globulin Ratio (0.9-2) Urine Color Urine Appearance (Clear) Urine pH (4.5-7.5) Ur Specific [place] (1.000-1.030) Urine Protein (Negative) Urine Glucose (UA) (Negative) Urine Ketones (Negative) Urine Blood (Negative) Urine Nitrite (Negative) Urine Bilirubin (Negative) Urine Urobilinogen (Negative) Ur Leukocyte Esterase (Negative) Urine WBC (Auto) (0-5) /hpf Urine RBC (Auto) (0-4) /hpf U Hyaline Cast (Auto) (0-5) /lpf U Epithel Cells (Auto) (0-5) /lpf Urine Bacteria (Auto) (Negative) Stl C. diff Tox B Gene COVID-19 PCR (Negative) SARS-CoV-2 RNA (RT-PCR) PG Care Time/CCT Total # of Minutes Spent Total Time Spent with Patient: Total time spent is greater than 50% in coordination of care (as documented) at patient's floor/unit and/or counseling patient: Coding Level of Care Code 44922 Subseq Hosp Care Lvl 3 Diagnoses Diarrhea R19.7 Nausea & vomiting R11.2 Generalized weakness R53.1 Hypokalemia E87.6 Hx-TIA (transient ischemic attack) Z86.73 Carotid artery stenosis I65.29 Hypercholesterolemia E78.00 Arteriosclerotic cardiovascular disease (ASCVD) I25.10 Abnormal finding on imaging R93.89 Osteoarthritis M19.90 DVT prophylaxis Z29.9
[2020-03-06] MEDS ORDERED: ONDANSETRON INJ 2 MG/ML 2 ML VIAL IV ONE (20:35)
[2020-03-06] MEDS ORDERED: ACETAMINOPHEN 1,000 MG/100 ML VIAL IV STA (21:20)
[2020-03-06] MEDS ORDERED: PROMETHAZINE HCL 12.5 MG in SODIUM CHLORIDE 0.9% 50 ML IV STA (21:20)
[2020-03-06] MEDS ORDERED: ACETAMINOPHEN 500 MG TAB PO ONE (21:45)
[2020-03-06] MEDS: SIMVASTATIN 80 MG TAB PO SCH (21:48)
[2020-03-06] MEDS: ASPIRIN 81 MG ECTAB PO SCH (21:48)
[2020-03-07] MEDS: NSS + 20MEQ KCL 20 MEQ/1,000 ML BAG IV SCH ×3 (01:24→16:27)
[2020-03-07] MEDS ORDERED: IBUPROFEN 600 MG TAB PO STA (01:49)
[2020-03-07] MEDS ORDERED: PROMETHAZINE HCL 12.5 MG in SODIUM CHLORIDE 0.9% 50 ML IV STA (01:49)
[2020-03-07] MEDS: cefTRIAXone SODIUM 1,000 MG in DEXTROSE 5% 50 ML IV SCH (02:36)
[2020-03-07] MEDS: ACETAMINOPHEN 325 MG TAB PO PRN ×2 (04:09→23:26)
[2020-03-07] MEDS: RASPBERRY SYRUP 5 ML UDP PO SCH (05:40)
[2020-03-07] MEDS: VANCOMYCIN HCL 125 MG/2.5ML SOLN PO SCH (05:40)
[2020-03-07 05:52] LABS: Basophils # (auto) 0.01 K/uL (0-0.2); Basophils % (auto) 0.1 %; Hematocrit (blood only) 30.4 % (37-47); Hemoglobin 10.2 g/dL (12.0-16.0); Immature Granulocytes # (auto) 0.04 K/uL (0.00-0.02); Immature Granulocytes % (auto) 0.4 %; Lymphocytes # (auto) 1.27 K/uL (1.2-3.4); Lymphocytes % (auto) 11.3 %; Mean Corpuscular Hemoglobin 30.5 pg (25-34); Mean Corpuscular Hgb Conc 33.6 g/dL (32-36); Mean Platelet Volume 10.7 fL (7.4-10.4); Monocytes # (auto) 0.62 K/uL (0.11-0.59); Monocytes % (auto) 5.5 %; Neutrophils % (auto) 82.7 %; Platelet Count 193 K/uL (130-400); RDW Coefficient of Variation 15.7 % (11.5-14.5); RDW Standard Deviation 53.3 fL (36.4-46.3); Red Blood Count 3.34 M/uL (4.2-5.4); White Blood Count 11.24 K/uL (4.8-10.8)
[2020-03-07 06:19] LABS: Albumin Globulin Ratio 0.6 (0.9-2); BUN Creatinine Ratio 16.3 (10-20); Bilirubin,Total 0.3 mg/dl (0.2-1); Calcium 7.3 mg/dl (8.5-10.1); Creatinine Clr Calc Pharmacy 75.3 ml/min; Est GFR (African American) 102.8; Est GFR (Non-African American) 88.7; Globulin 3.4 gm/dl (2.5-4.0); Magnesium 1.5 mg/dl (1.8-2.4); Potassium 3.7 mmol/L (3.5-5.1); Total Protein 5.4 gm/dl (6.4-8.2)
--- NOTE | 2020-03-07 06:48 | Electrocardiogram Report ---
Test Reason : Blood Pressure : / mmHG Vent. Rate : 100 BPM Atrial Rate : 100 BPM P-R Int : 188 ms QRS Dur : 092 ms QT Int : 326 ms P-R-T Axes : 040 058 043 degrees QTc Int : 420 ms Normal sinus rhythm Possible Left atrial enlargement Incomplete right bundle branch block Borderline ECG When compared with ECG of 23-FEB-2020 13:25, Criteria for Septal infarct are no longer Present Confirmed by Bowen Adkins ([id number]) on 03/07/2020 6:48:32 AM Referred By: REFERRED SELF Confirmed By:Bowen Adkins
[2020-03-07] MEDS: CALCIUM 600MG + VIT D 400 IU TAB PO SCH (07:43)
[2020-03-07] MEDS: MULTIVITAMIN TAB PO SCH (07:43)
--- NOTE | 2020-03-07 08:14 | Gastrointestinal Consultation ---
Date of Consultation March 07, 2020 Assessment & Plan (1) Nausea & vomiting: Seems to have improved, the nausea and vomiting and loose stools (now improved) would be concerning for a systemic cause given persitent and recurrent fevers. C-diff is negative, stool cultures are pending. I would continue to evaluate for other causes of infection as she continues to be febrile. Continue supportive care, consider evaluations for joint infection, etc given elevated WBC count as well as persistant fevers. If non-revealing, may need flex sig during this admission. Call with questions, will follow. (2) Diarrhea: History of Present Illness Attending Physician: Danny Campos MD History of Present Illness Ms. Patel is a 80-year-old female who follows with Dr. Mendoza with a past medical history of chronic osteoarthritis, bilateral knee replacements, left shoulder replacement, prior stroke syndrome, anemia, hypercholesterolemia, and recent UTI who presented to the emergency room for the second time in the last several weeks with complaints of persistent and intermittent fever, chills, sweats and feelings of unwellness with nausea/vomiting and increasingly liquid bowel movements after completing a course of antibiotics for cystitis. She was recently admitted for an overnight observation on for diarrhea and vomiting and treated for a urinary tract infection. She was discharged and completed a total 7-day course of antibiotics with cefdinir. She did have documented E. coli on a clean cath urine sample during that admission. She did improve after the course of antibiotics very briefly, however, 2 to 3 days ago developed increasing stomach discomfort and loose bowels again with fever, chills, and night sweats. She has had nausea and vomiting, emesis is without blood or bile and is typically clearish/yellow. She denies chest pain, chest pressure, shortness of breath, difficulty breathing, syncope, presyncope. She feels globally weak and a little bit lightheaded. Rash. She denies bright red blood per rectum and melena. Since admission, she states that her stools are still loose, but having more formed, she is now no longer having nausea vomiting and ate at least half of her meals at all 3 settings yesterday. Today she says she is hungry and she feels quite better. She is have no nausea vomiting right now, did have a loose but not watery bowel movement this morning. Is able to get to the bathroom without assistance. Still having fevers, although cultures including C. difficile urine and blood have all been normal thus far. Her white count was elevated admission, and now has declined but is back up this morning. She was febrile on several occasions yesterday. She is on antibiotics with Rocephin at this time. Stool cultures were ordered, again C. difficile is negative, however routine stool cultures are pending. She denies any exposure recently to takeout food, food that was brought to her from another source, or accidentally ingesting food. Her most recent colonoscopy was just over [address] Mendoza, during that time she had a very mild evidence of some erythema in the sigmoid colon that was biopsied and resulted as nonspecific colitis. Allergies Allergy/AdvReac Type Severity Reaction Status Date / Time ondansetron [From Zofran] Allergy Severe Vomiting Verified 03/05/20 18:05 morphine AdvReac Mild NAUSEA Verified 03/05/20 18:05 VOMITING levothyroxine AdvReac Unknown Unknown Verified 03/05/20 18:05 Home Medications Home Medications Medication Instructions Recorded Confirmed Type PreserVision AREDS 1 tab PO BID 02/21/19 03/05/20 History calcium carbonate [Calcium 600] 600 mg PO QAM 02/21/19 03/05/20 History multivitamin 1 tab PO QAM 02/21/19 03/05/20 History timolol maleate (PF) 1 drp OPHTHALMIC (EYE) BID 02/21/19 03/05/20 History simvastatin 80 mg tablet 80 mg PO HS #30 tab 06/18/19 03/05/20 Rx meloxicam 15 mg tablet 15 mg PO DAILY PRN #30 tab 07/18/19 03/05/20 Rx fluocinolone acetonide oil 0.01 % 5 drops OTIC (EAR) BID PRN #20 ml 11/11/19 03/05/20 Rx ear drops hydrocodone 5 mg-acetaminophen 325 1 tab PO Q6H PRN #30 tab 12/11/19 03/05/20 Rx mg tablet oxycodone-acetaminophen 5 mg-325 1 tab PO Q6H PRN #40 tab 02/04/20 03/05/20 Rx mg tablet aspirin 81 mg PO HS 02/23/20 03/05/20 History ezetimibe [Zetia] 10 mg PO QAM 03/05/20 03/05/20 History Patient History Medical History Bleeding per rectum (Resolved) Chronic diarrhea (Resolved) Glaucoma Hearing deficit BILATERAL HEARING AIDES Hyperlipidemia Osteoarthritis Sialoadenitis (Resolved) Stroke syndrome (Resolved) TIA (transient ischemic attack) 8 years ago. No residual deficits Surgical History History of carotid endarterectomy WITH STENT (LEFT) 8 years ago History of colonoscopy ATTEMPTED, HAS NEVER HAD A SUCCESSFUL COLONOSCOPY D/T NO ANESTHESIA History of detached retina repair LEFT EYE History of tonsillectomy History of total knee replacement BILATERAL History of total shoulder replacement LEFT Family History Mother Fallopian tube carcinoma Ovarian cancer Father Coronary heart disease Myocardial infarction Denies family history of Prostate cancer Breast cancer Colorectal cancer Social History Preferred Language: Korean Communication Ability: Effective Communication Ability Comment: [employer] Required: No Beliefs That Will Affect Care: None marital status: Current Living Situation: Other Current Living Situation Comment: pt very [place] and unable to understand current occupational status: retired Feels Safe at Home: Yes Smoking Status: Unknown if ever smoked Hx Substance Use: No (unable to answer) Childhood Exposure to Second-Hand Smoke: No Review of Systems Review of Systems: All systems reviewed & are unremarkable except as noted in HPI & below Physical Exam Physical Exam: Very hard of hearing, RRR no mgr CTABL NABS/Soft/NT/ND No edema No neuro deficits Results & Data ([facility]) Vital Signs (Past 12 Hours) Vital Signs Temp Pulse Resp BP BP Pulse Ox 03/07/20 07:08 36.4 C L 88 18 106/64 94 03/07/20 05:40 36.8 C 90 14 94 03/07/20 04:00 38.8 C H 112 H 19 115/72 93 03/07/20 01:26 39.5 C H 129 H 03/07/20 00:13 37.3 C 111 H 20 94 03/06/20 23:09 38.9 C H 118 H 18 135/73 94 03/06/20 20:56 38.3 C H 121 H 20 170/85 H 95 03/06/20 20:49 38.6 C H 119 H 18 178/79 H 95
--- NOTE | 2020-03-07 11:40 | Hospitalist Progress Note ---
Date of Service March 07, 2020 Assessment & Plan (1) Diarrhea: Teena is a 80-year-old female with a past medical history of chronic osteoarthritis, bilateral knee replacement, left shoulder replacement, prior stroke syndrome, anemia, hypercholesterolemia, and recent UTI who presented for increasing fever, chills, sweats and feelings of unwellness with nausea/vomiting and increasingly liquid bowel movements after completing a course of antibiotics for cystitis. COVID testing negative. - CT A/P with non-specific colitis, diverticulosis without diverticulitis, faint pericolonic infiltration and thickened endometrium - C diff negative, stop po vanc - Continue IV rocephin for now - - Await final result of stool culture, neg to date, add on rotovirus and norovirus -- concerning for salmonella or other infectious etiology. - Tmax overnight = 39.5 again - Follow BCx - NGTD prelim - Follow CBC, WBC stable - 11.24 - Continue NSS + KCl @ 125cc/hr - GI consulted - appreciate recs - will reeval for other causes of high grade fever, diarrhea, abd complaints, with additional cultures, US gallbladder and UA/UCx, Lymes and anaplasmosis testing, multiple joint replacements- consider further workup. (2) Nausea & vomiting: - Continues, vomiting last night, nauseous this morning - Checking Gallbladder US to r/o cholecystits with high fever, abd pain, diarrhea, etc. - Recheck UA/Ucx (3) Generalized weakness: - PT/OT consults (4) Hypokalemia: -K 3.7 - follow am BMP - replace as necessary (5) Hx-TIA (transient ischemic attack): - 8 years ago - Continue outpatient ASA 81mg, simvastatin 80mg (6) Carotid artery stenosis: - Noted (7) Hypercholesterolemia: - Chronic - Continue home ezetimbe, simvastatin (8) Arteriosclerotic cardiovascular disease (ASCVD): -Contiune home ASA, simvastatin (9) Abnormal finding on imaging: - Patient with endometrial stripe/thickening on CTAP on admission --> will need non-emergent pelvic ultrasound outpatient (10) Osteoarthritis: -Chronic. Stable Right hip OA -- continue oxycodone 5mg in lieu of outpatient oxycodone-APA while inpatient -Meloxicam 15mg prn (11) DVT prophylaxis: -SCDs, Lovenox Dispo: From home, likely to remain inpatient additional 1-2 days Admission and Anticipated Discharge Date Admission Date: March 06, 2020 Subjective The patient was seen and examined this morning. Pt states she is doing ok this morning, but is still feeling worn out. She had 3 episodes of diarrhea this morning, slightly more formed than yesterday. She woke up overnight again with shaking chills and fever, with Tmax of 39.5, but also took a tylenol before going to sleep last night. Her appetite has not improved, she was nauseous this morning, but did not vomit, and was unable to finish a piece of toast. She denies other acute complaints, such as cough, nasal symptoms, difficulty swallowing, sob, chest pain, palpitations. She has multiple joints replaced, including both knees and left total shoulder. Early April she is scheduled for a right hip replacement with Dr. Lucero. All other ROS are negative. Review of Systems Review of Systems: Constitutional: As per HPI. Eyes: No diplopia, no worsening or blurred vision ENT: normal hearing, no trouble swallowing Respiratory: No cough, sputum, dyspnea at rest or on exertion Cardiovascular: No chest pain, tightness or palpitations Abdomen: As per HPI. : No discharge, no pain, no dysuria, no hematuria Musculoskeletal: No joint pain, calf pain, swelling Neurologic: No weakness, numbness/tingling, + uses a walker for ambulation Psychiatric: No anxiety or depression Skin: No rash or itch Physical Exam Physical Exam: General: awake, alert, no apparent distress, + obese Head: Normocephalic, atraumatic ENT: PERRL, EOMI, no pharyngeal exudate, mucous membranes moist Chest: Clear to auscultation, on room air, no adventitious breath sounds Cardiac: Regular rate and rhythm, no murmur, no JVD, normal peripheral pulses, good capillary refill Abdominal: NABS x 4 quadrants, nondistended, soft, minimally tender to palpation, no rebound, guarding Extremities: Normal inspection, no peripheral edema or erythema, calfs nontender to palpation Psych: Normal mood and affect Neuro: AAO x 3, no gross motor deficits, speech is clear, no peripheral sensory deficits Results & Data Results & Data ([facility]) Vital Signs (Past 12 Hours) Vital Signs Temp Pulse Resp BP BP Pulse Ox 03/07/20 07:08 36.4 C L 88 18 106/64 94 03/07/20 05:40 36.8 C 90 14 94 03/07/20 04:00 38.8 C H 112 H 19 115/72 93 03/07/20 01:26 39.5 C H 129 H 03/07/20 00:13 37.3 C 111 H 20 94 PG Care Time/CCT Total # of Minutes Spent Total Time Spent with Patient: Total time spent is greater than 50% in coordination of care (as documented) at patient's floor/unit and/or counseling patient: Coding Level of Care Code 50280 Inpt Consult Level 3 Diagnoses Diarrhea R19.7 Nausea & vomiting R11.2 Generalized weakness R53.1 Hypokalemia E87.6 Hx-TIA (transient ischemic attack) Z86.73 Carotid artery stenosis I65.29 Hypercholesterolemia E78.00 Arteriosclerotic cardiovascular disease (ASCVD) I25.10 Abnormal finding on imaging R93.89 Osteoarthritis M19.90 DVT prophylaxis Z29.9
[2020-03-07 12:55] LABS: Lyme Ab IgG w/WB Rflx Negative (Negative); Lyme Ab IgM w/WB Rflx Negative (Negative)
--- NOTE | 2020-03-07 14:25 | Ultrasound Report ---
ULTRASOUND RIGHT UPPER QUADRANT ABDOMEN CLINICAL HISTORY: Right upper quadrant abdominal pain. Fever. COMPARISON STUDY: Abdominal CT dated 03/05/2020. TECHNIQUE: Real-time, grayscale, and color flow sonography of the right upper quadrant of the abdomen was performed. Images are reviewed in the transverse and longitudinal planes. FINDINGS: Liver: The liver is normal in size and echotexture. There is no intrahepatic biliary ductal dilatatio n. The main portal vein is patent. Gallbladder: The gallbladder is normal in appearance. No gallstones are identified. There is no gallb ladder wall thickening or pericholecystic fluid. A sonographic Mcconnell's sign is reportedly absent. Th e common bile duct measures up to 0.5 cm in diameter. Pancreas: Visualized portions of the pancreatic head and body are normal in appearance. Right kidney: Survey images of the right kidney demonstrate normal size and echotexture. There is no hydronephrosis. Ascites: None. IMPRESSION: Unremarkable sonographic assessment of the right upper quadrant. No shadowing gallstones are identified. ACT 112: Negative or not required by law. Electronically signed by: Rodger Clark M.D. 03/07/2020 2:24 PM
[2020-03-07 14:46] LABS: Appearance Urine Clear (Clear); Bacteria Urine Automated Negative (Negative); Bilirubin Urine Negative (Negative); Blood Urine Trace (Negative); Color Urine Dark Yellow; Epithelial Cell Urine Auto >30 /lpf (0-5); Glucose Urine UA Negative (Negative); Ketones Urine Negative (Negative); Leukocyte Esterase Urine Negative (Negative); Nitrite Urine Negative (Negative); Protein Urine 1+ (Negative); Specific Gravity Urine 1.022 (1.000-1.030); Urobilinogen Urine Negative (Negative)
[2020-03-07] MEDS: ONDANSETRON INJ 2 MG/ML 2 ML VIAL IV PRN (15:01)
[2020-03-07] MEDS: ASPIRIN 81 MG ECTAB PO SCH (22:09)
[2020-03-07] MEDS: SIMVASTATIN 80 MG TAB PO SCH (22:09)
[2020-03-07] MEDS: ENOXAPARIN INJ 40 MG/0.4 ML SYR SQ SCH (22:10)
[2020-03-08] MEDS ORDERED: ACETAMINOPHEN 500 MG TAB PO ONE (00:40)
[2020-03-08] MEDS: cefTRIAXone SODIUM 1,000 MG in DEXTROSE 5% 50 ML IV SCH (01:13)
[2020-03-08] MEDS: NSS + 20MEQ KCL 20 MEQ/1,000 ML BAG IV SCH (01:13)
--- NOTE | 2020-03-08 05:55 | XRay Report ---
XR chest 1V portable CLINICAL HISTORY: wheezing, new cough, fevers dyspnea COMPARISON STUDY: 03/05/2020 FINDINGS: Slight interstitial prominence compared to the prior exam. No well-defined focal infiltrate . Diaphragms are smooth. IMPRESSION: Slight nonspecific interstitial prominence bilaterally. No well-defined focal infiltrate . ACT 112: Negative or not required by law. The above report was generated using voice recognition software. It may contain grammatical, syntax or spelling errors. Electronically signed by: Rashad Holder M.D. 03/08/2020 5:54 AM
[2020-03-08 06:22] LABS: Appearance Urine Clear (Clear); Bacteria Urine Automated Negative (Negative); Bilirubin Urine Negative (Negative); Blood Urine 1+ (Negative); Color Urine Yellow; Epithelial Cell Urine Auto >30 /lpf (0-5); Glucose Urine UA Negative (Negative); Ketones Urine Negative (Negative); Leukocyte Esterase Urine Negative (Negative); Nitrite Urine Negative (Negative); Protein Urine Trace (Negative); RBC Urine Automated 0-4 /hpf (0-4); Specific Gravity Urine 1.008 (1.000-1.030); Urobilinogen Urine Negative (Negative)
[2020-03-08] MEDS: ACETAMINOPHEN 500 MG TAB PO PRN ×2 (06:25→16:08)
[2020-03-08 06:52] LABS: Creatinine Clr Calc Pharmacy 87.9 ml/min; Est GFR (African American) 108.1; Est GFR (Non-African American) 93.3
[2020-03-08] MEDS: MAGNESIUM SULFATE / D5W 1 GM/100 ML BAG IV SCH ×2 (08:36→10:53)
[2020-03-08] MEDS: CALCIUM 600MG + VIT D 400 IU TAB PO SCH (08:41)
[2020-03-08] MEDS: MULTIVITAMIN TAB PO SCH (08:41)
[2020-03-08 09:02] LABS: BUN Creatinine Ratio 13.8 (10-20); Creatinine Clr Calc Pharmacy 76.7 ml/min; Est GFR (African American) 103.4; Est GFR (Non-African American) 89.2; Magnesium 1.7 mg/dl (1.8-2.4); Potassium 3.6 mmol/L (3.5-5.1)
[2020-03-08 09:03] LABS: Basophils # (auto) 0.04 K/uL (0-0.2); Basophils % (auto) 0.4 %; Echinocytes 2+; Hematocrit (blood only) 32.9 % (37-47); Immature Granulocytes # (auto) 0.04 K/uL (0.00-0.02); Immature Granulocytes % (auto) 0.4 %; Lymphocytes # (auto) 1.28 K/uL (1.2-3.4); Lymphocytes % (auto) 14.1 %; Mean Corpuscular Hemoglobin 30.4 pg (25-34); Mean Corpuscular Hgb Conc 33.4 g/dL (32-36); Mean Corpuscular Volume 90.9 fL (80-100); Mean Platelet Volume 12.2 fL (7.4-10.4); Monocytes # (auto) 0.47 K/uL (0.11-0.59); Monocytes % (auto) 5.2 %; Neutrophils # (auto) 7.28 K/uL (1.4-6.5); Neutrophils % (auto) 79.9 %; Platelet Count 115 K/uL (130-400); Platelet Estimate Decreased (Normal); RDW Coefficient of Variation 15.7 % (11.5-14.5); RDW Standard Deviation 52.3 fL (36.4-46.3); Red Blood Count 3.62 M/uL (4.2-5.4); White Blood Count 9.11 K/uL (4.8-10.8)
--- NOTE | 2020-03-08 09:21 | Hospitalist Progress Note ---
Date of Service March 08, 2020 Assessment & Plan (1) Anaplasmosis: Teena is a 80-year-old female with a past medical history of chronic osteoarthritis, bilateral knee replacement, left shoulder replacement, prior stroke syndrome, anemia, hypercholesterolemia, and recent UTI who presented for increasing fever, chills, sweats and feelings of unwellness with nausea/vomiting and increasingly liquid bowel movements after completing a course of antibiotics for cystitis. COVID testing negative. * Continued high fevers originally without clear source. Stool cultures negative today. CT A/P with evidence of non-specific colitis. WBC 9.1k, H/h . Plt 115 down from 465 on admission. LFTs wnl. * ESR elevated at 42, CRP 15.4, Procalcitonin 3.7 * Lactic drawn, 2.2 -- repeat pending. IVF for 1L. May need small dose of diuretic if becomes overloaded as she had been receiving continuous IVF up until overnight 03/07. Meets criteria for sepsis - fever, tachycardia, lactic, WBC initially >12 although now trending down * Tmax 39.4 last evening, again. Repeat Bcx drawn. Initially reported as negative on smear, but repeat suspicious for anaplasmosis --> treat * Added doxycycline BID * Stool cultures negative to date. FOCB + * BCx NGTD (2) Diarrhea: * GI consulted initially. concerns for non-specific colitis on CT A/P. Recent abx usage * cdiff negative * If symptoms persist could consider scope prior to discharge with Dr. Mendoza (3) Nausea & vomiting: * No reported n/v overnight or today * US GB without evidence of acute cholecystitis (4) Generalized weakness: * PT/OT consults -- continue while inpatient please (5) Hypokalemia: * K 3.6. Mag low at 1.7 -- ordered IV replacement * Follow am BMP, Mag - replace as necessary (6) Hx-TIA (transient ischemic attack): * 8 years ago * Continue outpatient ASA 81mg, simvastatin 80mg (7) Carotid artery stenosis: * Noted (8) Hypercholesterolemia: * Chronic * Continue home ezetimbe, simvastatin (9) Arteriosclerotic cardiovascular disease (ASCVD): * Continue home ASA, simvastatin (10) Abnormal finding on imaging: * - Patient with endometrial stripe/thickening on CTAP on admission --> will need non-emergent pelvic ultrasound outpatient (11) Osteoarthritis: * Chronic. Stable Right hip OA -- continue oxycodone 5mg in lieu of outpatient oxycodone-APA while inpatient * Meloxicam 15mg prn (12) Wheezing: * Episode of wheezing last night and this morning * Interstitial prominence bilaterally on CXR --> had been on continuous IVF, which were discontinued last evening * No nebulizers were ordered given patient tachycardic, but continues to have wheezing on exam * Will order levalbuterol prn wheezing. Currently 93% on RA * Encouraged use of incentive spirometer * May need small dose diuretic as patient without diuretic outpatient -- continue to monitor * Will check ECHO to r/o complications from anaplasmosis as cause and not 2/2 to volume overload from IVF (13) DVT prophylaxis: * SCDs * Lovenox -- monitor platelets, currently 115 Dispo: likely to remain inpatient additional 1-2 days. Admission and Anticipated Discharge Date Admission Date: March 06, 2020 Subjective Patient evaluated this morning. States she had four episodes of diarrhea last night and again this morning. She denies melena or blood but states she did think there was a green color to it. She denies urinary symptoms at this time, including frequency, urgency or dysuria. Reported fever and chills last night but states she feels "much better today". States she has chronic hip pain but denies any increased hip pain or knee pain at this time. Voiding without difficulty. Denies chest pain, shortness of breath but states she did have an episode of shortness of breath getting up to go to the bathroom last night and she believes she got a chest x-ray. Demonstrated use of incentive spirometer while I was in the room and states she is able to get her volume up to 1000mL when she was only able to get to 500mL the day before. Poor appetite continues as she states she did have some juice this morning and a bite of toast, but was not hungry for anything else. Denies abdominal fullness or nausea/vomiting at this time. Review of Systems Review of Systems: All systems reviewed & are unremarkable except as noted in HPI & below Physical Exam Physical Exam: Constitutional well developed, well nourished and cooperative; no acute distress Eyes PERRL, conjunctivae normal, anicteric sclerae ENMT Ears: + hearing impairment (hard of hearing) Neck trachea midline, no thyromegaly Respiratory normal respiratory effort, lungs clear to auscultation bibasilar crackles, expiratory wheezing Cardiovascular tachycardic, regular rhythm, no murmur, no edema Gastrointestinal (Abdomen) Inspection/Auscultation: abdomen normal to inspection and + BS Percussion/Palpation: abdomen soft; abdomen nontender, no guarding and abdomen not rigid Musculoskeletal no cyanosis or clubbing, extremities motor strength 5/5 Hip non-tender to palpation. Knees with full ROM, non-tender with AROM Skin warm, moist Neurologic PERRL, EOMI, accommodation nl, no face palsy, no dysarthria Psychiatric A+Ox2, intermittent periods of confusion during conversation, Lymphatic no cervical or axillary lymphadenopathy Results & Data Results & Data ([facility]) Vital Signs (Past 12 Hours) Vital Signs Temp Pulse Resp BP BP Pulse Ox 03/08/20 07:37 37.1 C 114 H 18 108/62 91 03/08/20 06:19 37.6 C H 116 H 18 92 03/08/20 03:32 36.8 C 94 H 16 109/66 95 03/08/20 01:17 38.2 C H 114 H 20 93 03/08/20 00:20 39.3 C H 03/07/20 23:07 39.4 C H 120 H 18 156/83 H 91 Laboratory Results 03/08/20 03/08/20 03/08/20 Range/Units 12:12 09:09 09:09 WBC (4.8-10.8) K/uL RBC (4.2-5.4) M/uL Hgb (12.0-16.0) g/dL Hct (37-47) % MCV (80-100) fL MCH (25-34) pg MCHC (32-36) g/dL RDW Std Deviation (36.4-46.3) fL RDW Coeff of Jake (11.5-14.5) % Plt Count (130-400) K/uL MPV (7.4-10.4) fL Immature Gran % (Auto) % Neut % (Auto) % Lymph % (Auto) % [place] % (Auto) % Eos % (Auto) % Baso % (Auto) % Immature Gran # (Auto) (0.00-0.02) K/uL Neut # (Auto) (1.4-6.5) K/uL Lymph # (Auto) (1.2-3.4) K/uL [place] # (Auto) (0.11-0.59) K/uL Eos # (Auto) (0-0.5) K/uL Baso # (Auto) (0-0.2) K/uL Blood Smear Review Platelet Estimate (Normal) Echinocytes ESR (0-21) mm/hr Sodium (136-145) mmol/L Potassium (3.5-5.1) mmol/L Chloride (98-107) mmol/L Carbon Dioxide (21-32) mmol/L Anion Gap (3-11) BUN (7-18) mg/dl Creatinine (0.6-1.2) mg/dl Est Cr Clr Drug Dosing ml/min Est GFR ( Amer) Est GFR (Non-Af Amer) BUN/Creatinine Ratio (10-20) Glucose (70-99) mg/dl Lactate Pending Calcium (8.5-10.1) mg/dl Magnesium (1.8-2.4) mg/dl C-Reactive Protein 15.40 H (0-0.29) mg/dl Procalcitonin 3.70 H (0-0.5) ng/ml Urine Color Urine Appearance (Clear) Urine pH (4.5-7.5) Ur Specific [place] (1.000-1.030) Urine Protein (Negative) Urine Glucose (UA) (Negative) Urine Ketones (Negative) Urine Blood (Negative) Urine Nitrite (Negative) Urine Bilirubin (Negative) Urine Urobilinogen (Negative) Ur Leukocyte Esterase (Negative) Urine WBC (Auto) (0-5) /hpf Urine RBC (Auto) (0-4) /hpf U Hyaline Cast (Auto) (0-5) /lpf U Epithel Cells (Auto) (0-5) /lpf Urine Bacteria (Auto) (Negative) Urine Yeast (None Prsent) Anaplasma Smear Lyme Disease IgG Ab (Negative) Lyme Disease IgM Ab (Negative) Norovirus RNA (PCR) 03/08/20 03/08/20 03/08/20 Range/Units 09:09 07:29 07:29 WBC 9.11 (4.8-10.8) K/uL RBC 3.62 L (4.2-5.4) M/uL Hgb 11.0 L (12.0-16.0) g/dL Hct 32.9 L (37-47) % MCV 90.9 (80-100) fL MCH 30.4 (25-34) pg MCHC 33.4 (32-36) g/dL RDW Std Deviation 52.3 H (36.4-46.3) fL RDW Coeff of Jake 15.7 H (11.5-14.5) % Plt Count 115 L (130-400) K/uL MPV 12.2 H (7.4-10.4) fL Immature Gran % (Auto) 0.4 % Neut % (Auto) 79.9 % Lymph % (Auto) 14.1 % [place] % (Auto) 5.2 % Eos % (Auto) 0.0 % Baso % (Auto) 0.4 % Immature Gran # (Auto) 0.04 H (0.00-0.02) K/uL Neut # (Auto) 7.28 H (1.4-6.5) K/uL Lymph # (Auto) 1.28 (1.2-3.4) K/uL [place] # (Auto) 0.47 (0.11-0.59) K/uL Eos # (Auto) 0.00 (0-0.5) K/uL Baso # (Auto) 0.04 (0-0.2) K/uL Blood Smear Review Pending Platelet Estimate Decreased L (Normal) Echinocytes 2+ ESR 42 H (0-21) mm/hr Sodium 133 L (136-145) mmol/L Potassium 3.6 (3.5-5.1) mmol/L Chloride 106 (98-107) mmol/L Carbon Dioxide 22 (21-32) mmol/L Anion Gap 5.0 (3-11) BUN 8 (7-18) mg/dl Creatinine 0.55 L (0.6-1.2) mg/dl Est Cr Clr Drug Dosing 76.7 ml/min Est GFR ( Amer) 103.4 Est GFR (Non-Af Amer) 89.2 BUN/Creatinine Ratio 13.8 (10-20) Glucose 99 (70-99) mg/dl Lactate Calcium 8.0 L (8.5-10.1) mg/dl Magnesium 1.7 L (1.8-2.4) mg/dl C-Reactive Protein (0-0.29) mg/dl Procalcitonin (0-0.5) ng/ml Urine Color Urine Appearance (Clear) Urine pH (4.5-7.5) Ur Specific [place] (1.000-1.030) Urine Protein (Negative) Urine Glucose (UA) (Negative) Urine Ketones (Negative) Urine Blood (Negative) Urine Nitrite (Negative) Urine Bilirubin (Negative) Urine Urobilinogen (Negative) Ur Leukocyte Esterase (Negative) Urine WBC (Auto) (0-5) /hpf Urine RBC (Auto) (0-4) /hpf U Hyaline Cast (Auto) (0-5) /lpf U Epithel Cells (Auto) (0-5) /lpf Urine Bacteria (Auto) (Negative) Urine Yeast (None Prsent) Anaplasma Smear Pending Lyme Disease IgG Ab (Negative) Lyme Disease IgM Ab (Negative) Norovirus RNA (PCR) 03/08/20 03/08/20 03/07/20 Range/Units 06:10 03:07 18:00 WBC (4.8-10.8) K/uL RBC (4.2-5.4) M/uL Hgb (12.0-16.0) g/dL Hct (37-47) % MCV (80-100) fL MCH (25-34) pg MCHC (32-36) g/dL RDW Std Deviation (36.4-46.3) fL RDW Coeff of Jake (11.5-14.5) % Plt Count (130-400) K/uL MPV (7.4-10.4) fL Immature Gran % (Auto) % Neut % (Auto) % Lymph % (Auto) % [place] % (Auto) % Eos % (Auto) % Baso % (Auto) % Immature Gran # (Auto) (0.00-0.02) K/uL Neut # (Auto) (1.4-6.5) K/uL Lymph # (Auto) (1.2-3.4) K/uL [place] # (Auto) (0.11-0.59) K/uL Eos # (Auto) (0-0.5) K/uL Baso # (Auto) (0-0.2) K/uL Blood Smear Review Platelet Estimate (Normal) Echinocytes ESR (0-21) mm/hr Sodium (136-145) mmol/L Potassium (3.5-5.1) mmol/L Chloride (98-107) mmol/L Carbon Dioxide (21-32) mmol/L Anion Gap (3-11) BUN (7-18) mg/dl Creatinine 0.48 L (0.6-1.2) mg/dl Est Cr Clr Drug Dosing 87.9 ml/min Est GFR ( Amer) 108.1 Est GFR (Non-Af Amer) 93.3 BUN/Creatinine Ratio (10-20) Glucose (70-99) mg/dl Lactate Calcium (8.5-10.1) mg/dl Magnesium (1.8-2.4) mg/dl C-Reactive Protein (0-0.29) mg/dl Procalcitonin (0-0.5) ng/ml Urine Color Yellow Urine Appearance Clear (Clear) Urine pH 6.0 (4.5-7.5) Ur Specific [place] 1.008 (1.000-1.030) Urine Protein Trace H (Negative) Urine Glucose (UA) Negative (Negative) Urine Ketones Negative (Negative) Urine Blood 1+ H (Negative) Urine Nitrite Negative (Negative) Urine Bilirubin Negative (Negative) Urine Urobilinogen Negative (Negative) Ur Leukocyte Esterase Negative (Negative) Urine WBC (Auto) 1-5 (0-5) /hpf Urine RBC (Auto) 0-4 (0-4) /hpf U Hyaline Cast (Auto) 1-5 (0-5) /lpf U Epithel Cells (Auto) >30 H (0-5) /lpf Urine Bacteria (Auto) Negative (Negative) Urine Yeast Budding A (None Prsent) Anaplasma Smear Lyme Disease IgG Ab (Negative) Lyme Disease IgM Ab (Negative) Norovirus RNA (PCR) Pending 03/07/20 03/07/20 Range/Units 14:19 11:23 WBC (4.8-10.8) K/uL RBC (4.2-5.4) M/uL Hgb (12.0-16.0) g/dL Hct (37-47) % MCV (80-100) fL MCH (25-34) pg MCHC (32-36) g/dL RDW Std Deviation (36.4-46.3) fL RDW Coeff of Jake (11.5-14.5) % Plt Count (130-400) K/uL MPV (7.4-10.4) fL Immature Gran % (Auto) % Neut % (Auto) % Lymph % (Auto) % [place] % (Auto) % Eos % (Auto) % Baso % (Auto) % Immature Gran # (Auto) (0.00-0.02) K/uL Neut # (Auto) (1.4-6.5) K/uL Lymph # (Auto) (1.2-3.4) K/uL [place] # (Auto) (0.11-0.59) K/uL Eos # (Auto) (0-0.5) K/uL Baso # (Auto) (0-0.2) K/uL Blood Smear Review Platelet Estimate (Normal) Echinocytes ESR (0-21) mm/hr Sodium (136-145) mmol/L Potassium (3.5-5.1) mmol/L Chloride (98-107) mmol/L Carbon Dioxide (21-32) mmol/L Anion Gap (3-11) BUN (7-18) mg/dl Creatinine (0.6-1.2) mg/dl Est Cr Clr Drug Dosing ml/min Est GFR ( Amer) Est GFR (Non-Af Amer) BUN/Creatinine Ratio (10-20) Glucose (70-99) mg/dl Lactate Calcium (8.5-10.1) mg/dl Magnesium (1.8-2.4) mg/dl C-Reactive Protein (0-0.29) mg/dl Procalcitonin (0-0.5) ng/ml Urine Color Dark Yellow Urine Appearance Clear (Clear) Urine pH 5.0 (4.5-7.5) Ur Specific [place] 1.022 (1.000-1.030) Urine Protein 1+ H (Negative) Urine Glucose (UA) Negative (Negative) Urine Ketones Negative (Negative) Urine Blood Trace H (Negative) Urine Nitrite Negative (Negative) Urine Bilirubin Negative (Negative) Urine Urobilinogen Negative (Negative) Ur Leukocyte Esterase Negative (Negative) Urine WBC (Auto) 1-5 (0-5) /hpf Urine RBC (Auto) 5-10 H (0-4) /hpf U Hyaline Cast (Auto) 10-30 H (0-5) /lpf U Epithel Cells (Auto) >30 H (0-5) /lpf Urine Bacteria (Auto) Negative (Negative) Urine Yeast (None Prsent) Anaplasma Smear Lyme Disease IgG Ab Negative (Negative) Lyme Disease IgM Ab Negative (Negative) Norovirus RNA (PCR) PG Care Time/CCT Total # of Minutes Spent Total Time Spent with Patient: Total time spent is greater than 50% in coordination of care (as documented) at patient's floor/unit and/or counseling patient: Coding Level of Care Code 70218 Subseq Hosp Care Lvl 3 Diagnoses Anaplasmosis A77.49 Diarrhea R19.7 Nausea & vomiting R11.2 Generalized weakness R53.1 Hypokalemia E87.6 Hx-TIA (transient ischemic attack) Z86.73 Carotid artery stenosis I65.29 Hypercholesterolemia E78.00 Arteriosclerotic cardiovascular disease (ASCVD) I25.10 Abnormal finding on imaging R93.89 Osteoarthritis M19.90 Wheezing R06.2 DVT prophylaxis Z29.9
--- NOTE | 2020-03-08 12:06 | Gastroenterology Progress Note ---
Date of Service March 08, 2020 Assessment & Plan (1) Diarrhea: She is continuing to have fevers, she had 3 or 4 loose stools yesterday but states that it is mildly improving. She is no longer having nausea vomiting. Rotavirus was checked and negative stool cultures been negative as well as C. difficile. Today she is wheezing, and given her fevers I believe that a more thorough respiratory evaluation should be considered. Including the evaluation for possible PE. I will check her out to Dr. Mendoza whom she normally follows with, they can discuss the merits of flex sig and/or upper endoscopy given intermittent nausea vomiting, but I still feel that there is a systemic issue that has not been elucidated and essentially almost has a fever of unknown origin at this time. Dr. Mendoza will return tomorrow, please call with any questions. Admission and Anticipated Discharge Date Admission Date: March 06, 2020 Subjective She states that she feels better, she still persistently febrile at night. She also had some wheezing last night chest x-ray was ordered that showed some mild interstitial prominence, but no other overt infiltrate. Physical Exam Physical Exam: She is sleeping but easily arousable Mildly tachycardic Very hard of hearing She has both inspiratory and expiratory wheezing No abdominal pain on palpation, normoactive sounds no peripheral edema Results & Data ([facility]) Vital Signs (Past 12 Hours) Vital Signs Temp Pulse Resp BP BP Pulse Ox 03/08/20 11:50 93 03/08/20 07:37 37.1 C 114 H 18 108/62 91 03/08/20 06:19 37.6 C H 116 H 18 92 03/08/20 03:32 36.8 C 94 H 16 109/66 95 03/08/20 01:17 38.2 C H 114 H 20 93 03/08/20 00:20 39.3 C H
[2020-03-08] MEDS: DOXYCYCLINE HYCLATE 100 MG in DEXTROSE 5% 100 ML IV SCH ×2 (12:37→22:17)
[2020-03-08] MEDS ORDERED: LEVALBUTEROL HCL 0.63 MG/3 ML NEB NEB PRN (12:59)
[2020-03-08] MEDS ORDERED: SODIUM CHLORIDE 0.9% 1000ML 1,000 ML IV SCH (13:30)
[2020-03-08 14:34] LABS: Anaplasmosis Smear(Rpt to DOH) Pos for Anaplasma
[2020-03-08] MEDS ORDERED: METOPROLOL TARTRATE 25 MG TAB PO STA (16:12)
[2020-03-08] MEDS: SIMVASTATIN 80 MG TAB PO SCH (22:07)
[2020-03-08] MEDS: ASPIRIN 81 MG ECTAB PO SCH (22:07)
[2020-03-08] MEDS: ENOXAPARIN INJ 40 MG/0.4 ML SYR SQ SCH (22:08)
[2020-03-09] MEDS: cefTRIAXone SODIUM 1,000 MG in DEXTROSE 5% 50 ML IV SCH (01:11)
[2020-03-09] MEDS: OXYCODONE HCL IR 5 MG TAB (IMMEDIATE RELEASE) PO PRN ×2 (03:01→21:42)
[2020-03-09 05:59] LABS: Mean Corpuscular Hgb Conc 34.1 g/dL (32-36)
[2020-03-09 06:34] LABS: BUN Creatinine Ratio 23.7 (10-20); Calcium 7.8 mg/dl (8.5-10.1); Creatinine Clr Calc Pharmacy 89.8 ml/min; Est GFR (African American) 108.9; Est GFR (Non-African American) 93.9
[2020-03-09 06:38] LABS: Hematocrit (blood only) 30.2 % (37-47); Hemoglobin 10.3 g/dL (12.0-16.0); Mean Corpuscular Hemoglobin 30.5 pg (25-34); Mean Corpuscular Volume 89.3 fL (80-100); Mean Platelet Volume 13.4 fL (7.4-10.4); Platelet Count 88 K/uL (130-400); Platelet Estimate Decreased (Normal); RDW Coefficient of Variation 15.9 % (11.5-14.5); Red Blood Count 3.38 M/uL (4.2-5.4)
[2020-03-09] MEDS: CALCIUM 600MG + VIT D 400 IU TAB PO SCH (09:30)
[2020-03-09] MEDS: MULTIVITAMIN TAB PO SCH (09:30)
[2020-03-09] MEDS: DOXYCYCLINE HYCLATE 100 MG in DEXTROSE 5% 100 ML IV SCH (09:32)
--- NOTE | 2020-03-09 10:39 | Gastroenterology Progress Note ---
Date of Service March 09, 2020 Assessment & Plan (1) Diarrhea: 1. Patient improving clinically from a GI standpoint. 2. Continue supportive care. Admission and Anticipated Discharge Date Admission Date: March 06, 2020 Supervising Physician Co-Signing Physician Notes I personally evaluated the patient and agree with the findings as documented by MIKEL Mix Exam: abd: soft, nt, nd Subjective Patient reports improved GI symptoms. Very mild nausea but no vomiting and no further diarrhea. Denies any abdominal pain. No overt GIB. Currently with a diagnosis of anaplasmosis in the setting of persistent fevers. Review of Systems Constitutional: as per Subjective / HPI Respiratory: + cough Cardiovascular: no chest pain Gastrointestinal: as per Subjective / HPI Physical Exam Constitutional: WD/WN, vitals as above Neck: normal visual inspection Musculoskeletal: Extremities: extremities normal to inspection Psychiatric: A+Ox3, euthymic affect Results & Data Results & Data ([facility]) Vital Signs (Past 12 Hours) Vital Signs Temp Pulse Resp BP BP Pulse Ox 03/09/20 08:06 36.8 C 105 H 16 107/70 95 03/09/20 00:22 36.5 C 106 H 18 113/68 96 PG Care Time/CCT Total # of Minutes Spent Total Time Spent with Patient: Total time spent is greater than 50% in c oordination of care (as documented) at patient's floor/unit and/or counseling patient: Coding Level of Care Code 11855 Subseq Hosp Care Lvl 2 Diagnoses Diarrhea R19.7
--- NOTE | 2020-03-09 13:35 | Hospitalist Progress Note ---
Date of Service March 09, 2020 Assessment & Plan (1) Anaplasmosis: Continued high fevers originally without clear source. CT A/P with evidence of non-specific colitis. WBC 9.1k, H/h . Plt 115 down from 465 on admission. LFTs wnl. 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 - Started doxycycline on 03/08 with resolution of her fevers so far and feeling better. - Blood cultures from 03/06 & 03/08 all negative so far. Urinalysis from 03/07 & 03/08 all negative. (2) Diarrhea: GI consulted initially. concerns for non-specific colitis on CT A/P. Recent abx usage - C. diff negative on 03/06 -> Repeat ordered, but it appears to be improving. If no loose stool in >24 hours, will cancel it. - GI following, but low likelihood for inpatient scoping as diarrhea improving. (3) Nausea & vomiting: No reported n/v overnight or today. U/s of gallbladder on 03/07 without evidence of acute cholecystitis. - Can be an aspect of anaplasmosis; will monitor. (4) Generalized weakness: Likely due to acute illness. * PT/OT consults -- continue while inpatient please (5) Hx-TIA (transient ischemic attack): 8 years ago. No present focal symptoms. * Continue outpatient ASA 81mg, simvastatin 80mg (6) Hypercholesterolemia: Chronic. * Continue home ezetimbe, simvastatin (7) Arteriosclerotic cardiovascular disease (ASCVD): No chest pain today. * Continue home ASA, simvastatin (8) Abnormal finding on imaging: Patient with endometrial stripe/thickening on CTAP on admission. --> Will need non-emergent pelvic ultrasound outpatient. (9) Osteoarthritis: Chronic. Stable Right hip OA -> continue oxycodone 5mg in lieu of outpatient oxycodone-APA while inpatient. Plan for surgery in early April with Dr. Jorge Lucero. Patient doesn't want to miss this for anything as it is her main issue presently. * Meloxicam 15mg prn (10) Wheezing: Episode of wheezing on 03/07 & 03/08. Interstitial prominence bilaterally on CXR -> had been on continuous IVF, which were discontinued. - Echo done on 06/08 -> Results pending - None noted today. (11) DVT prophylaxis: Lovenox 40 mg SQ daily Admission and Anticipated Discharge Date Admission Date: March 06, 2020 Subjective Doing better today. No diarrhea so far today. More energy. More optimistic today. Reports no fevers/chills, chest pain, shortness of breath, abdominal pain, nausea, or vomiting. Physical Exam Constitutional: WD/WN, vitals as above Eyes: EOM intact bilaterally; no conjunctival abnormality ENMT: external ear and nose normal, oropharynx normal Neck: trachea midline, no thyromegaly normal visual inspection Respiratory: normal respiratory effort, lungs clear to auscultation no respiratory distress Cardiovascular: RRR, no murmur, no edema Gastrointestinal (Abdomen): Inspection/Auscultation: abdomen normal to inspection; abdomen not distended Musculoskeletal: no cyanosis or clubbing, extremities motor strength 5/5 Skin: no rashes, warm and dry Neurologic: moves all extremities and awake Psychiatric: Orientation: alert, oriented to person and cooperative Results & Data Results & Data ([facility]) Vital Signs (Past 12 Hours) Vital Signs Temp Pulse Resp BP Pulse Ox 03/09/20 08:06 36.8 C 105 H 16 107/70 95 PG Care Time/CCT Total # of Minutes Spent Total Time Spent with Patient: Total time spent is greater than 50% in coordination of care (as documented) at patient's floor/unit and/or counseling patient: Coding Level of Care Code 07032 Subseq Hosp Care Lvl 3 Diagnoses Anaplasmosis A77.49 Diarrhea R19.7 Nausea & vomiting R11.2 Generalized weakness R53.1 Hx-TIA (transient ischemic attack) Z86.73 Hypercholesterolemia E78.00 Arteriosclerotic cardiovascular disease (ASCVD) I25.10 Abnormal finding on imaging R93.89 Osteoarthritis M19.90 Wheezing R06.2 DVT prophylaxis Z29.9
--- NOTE | 2020-03-09 14:09 | XCELERA ---
[id number]
[2020-03-09] MEDS: ASPIRIN 81 MG ECTAB PO SCH (21:34)
[2020-03-09] MEDS: DOXYCYCLINE HYCLATE 100 MG CAP PO SCH (21:35)
[2020-03-09] MEDS: ENOXAPARIN INJ 40 MG/0.4 ML SYR SQ SCH (21:35)
[2020-03-09] MEDS: SIMVASTATIN 80 MG TAB PO SCH (21:35)
[2020-03-09] MEDS: ONDANSETRON INJ 2 MG/ML 2 ML VIAL IV PRN ×2 (21:42→22:14)
[2020-03-10 06:04] LABS: Hematocrit (blood only) 28.5 % (37-47); Hemoglobin 9.8 g/dL (12.0-16.0); Mean Corpuscular Hemoglobin 30.2 pg (25-34); Mean Corpuscular Hgb Conc 34.4 g/dL (32-36); Mean Corpuscular Volume 87.7 fL (80-100); Platelet Count 126 K/uL (130-400); RDW Coefficient of Variation 15.6 % (11.5-14.5); RDW Standard Deviation 50.8 fL (36.4-46.3); Red Blood Count 3.25 M/uL (4.2-5.4); White Blood Count 9.17 K/uL (4.8-10.8)
[2020-03-10] MEDS: DOXYCYCLINE HYCLATE 100 MG CAP PO SCH (06:04)
[2020-03-10 06:27] LABS: Basophils # (auto) 0.22 K/uL (0-0.2); Basophils % (auto) 2.4 %; Echinocytes 1+; Eosinophils # (auto) 0.01 K/uL (0-0.5); Eosinophils % (auto) 0.1 %; Giant Platelets 1+; Immature Granulocytes # (auto) 0.03 K/uL (0.00-0.02); Immature Granulocytes % (auto) 0.3 %; Lymphocytes # (auto) 3.68 K/uL (1.2-3.4); Lymphocytes % (auto) 40.1 %; Monocytes # (auto) 0.88 K/uL (0.11-0.59); Monocytes % (auto) 9.6 %; Neutrophils # (auto) 4.35 K/uL (1.4-6.5); Neutrophils % (auto) 47.5 %
[2020-03-10 06:34] LABS: Albumin Level 1.8 gm/dl (3.4-5.0); BUN Creatinine Ratio 26.4 (10-20); Calcium 8.2 mg/dl (8.5-10.1); Creatinine Clr Calc Pharmacy 89.8 ml/min; Est GFR (African American) 108.9; Est GFR (Non-African American) 93.9; Magnesium 1.9 mg/dl (1.8-2.4); Potassium 3.5 mmol/L (3.5-5.1)
[2020-03-10 06:37] LABS: Albumin Globulin Ratio 0.5 (0.9-2); Bilirubin,Total 0.6 mg/dl (0.2-1); Globulin 3.4 gm/dl (2.5-4.0); Total Protein 5.2 gm/dl (6.4-8.2)
[2020-03-10] MEDS ORDERED: POTASSIUM PHOS 3 MMOL/1 ML INFUSION IV STA (08:10)
[2020-03-10] MEDS ORDERED: POTASSIUM PHOSPHATE 21 MMOL in SODIUM CHLORIDE 0.9% 500 ML IV ONE (08:30)
[2020-03-10] MEDS: MULTIVITAMIN TAB PO SCH (08:58)
[2020-03-10] MEDS: CALCIUM 600MG + VIT D 400 IU TAB PO SCH (08:58)
--- NOTE | 2020-03-10 15:44 | Discharge Summary ---
Date of Service March 10, 2020 Admission HPI Per Admitting Provider Teena is a 80-year-old female with a past medical history of chronic osteoarthritis, bilateral knee replacement, left shoulder replacement, prior stroke syndrome, anemia, hypercholesterolemia, and recent UTI who presents for increasing fever, chills, sweats and feelings of unwellness with nausea/vomiting and increasingly liquid bowel movements after completing a course of antibiotics for cystitis. Teena reports that she was recently in the hospital over for diarrhea and vomiting and was admitted for an overnight stay and treated for a urinary tract infection. She was discharged and completed a total 7-day course of antibiotics with cefdinir. She reports that she felt well after this and returned to her near baseline level of health but 2 to 3 days ago developed increasing stomach discomfort and loose bowels. She has had associated fever, chills, and night sweats. She has had nausea and vomiting, emesis is without blood or bile and is typically clearish/yellow. Her bowel movements have become increasingly loose/liquid and her last one approximately 15 minutes prior was almost completely liquid. She denies back pain or flank pain. She endorses that she has still urinated 2-3 times per night which is slightly unusual, but she has not had other dysuria or daytime polyuria. She denies chest pain, chest pressure, shortness of breath, difficulty breathing, syncope, presyncope. She feels globally weak and a little bit lightheaded. Rash. She denies bright red blood per rectum and melena. Medical history: Reviewed Surgical history: Reviewed Allergies: Reviewed Social: Denies tobacco use, denies alcohol use, denies recreational drug use. She lives at home and always has someone in the house with her, no prior difficulties with ambulation although she notes she does have severe osteoarthritis that is pending a right hip replacement. CODE STATUS: Full code Principal Diagnosis Anaplasmosis Discharge Exam Constitutional WD/WN, vitals as above Eyes EOM intact bilaterally; no conjunctival abnormality ENMT external ear and nose normal, oropharynx normal Neck trachea midline, no thyromegaly normal visual inspection Respiratory normal respiratory effort, lungs clear to auscultation no respiratory distress Cardiovascular RRR, no murmur, no edema Gastrointestinal (Abdomen) Inspection/Auscultation: abdomen normal to inspection; abdomen not distended Musculoskeletal no cyanosis or clubbing, extremities motor strength 5/5 Skin no rashes, warm and dry Neurologic moves all extremities and awake Psychiatric Orientation: alert, oriented to person and cooperative Discharge Data Allergies Allergy/AdvReac Type Severity Reaction Status Date / Time ondansetron [From Zofran] Allergy Intermediate Vomiting Verified 03/07/20 14:58 morphine AdvReac Mild NAUSEA Verified 03/05/20 18:05 VOMITING levothyroxine AdvReac Unknown Unknown Verified 03/05/20 18:05 Consultations 03/05/20 20:55 ED Decision to Admit Stat 03/06/20 17:05 Consult Gastroenterology Routine Ordered Studies 03/05/20 18:17 CT abd pelvis IV con only Stat 03/07/20 11:13 US gallbladder Stat Hospital Course (1) 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 WBC 9.1k, H/h . Plt 115 down from 465 on admission. LFTs wnl. 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 - Started doxycycline on 03/08 with resolution of her fevers so far and feeling better. - Blood cultures from 03/06 & 03/08 all negative so far. Urinalysis from 03/07 & 03/08 all negative. - Discharged on 8 more days of doxycycline 100mg PO BID and a probiotic to hopefully avoid more GI side effects. (2) Diarrhea: GI consulted initially. Concerns for non-specific colitis on CT A/P. Recent abx usage. - C. diff negative on 03/06 - By discharge, diarrhea was improving. Nausea and vomiting is common with anaplasmosis, but I don't see as much regarding diarrhea. However, improving. Will discharge with probiotic and if it resolves, consider it related to infection or prior abx. (3) Nausea & vomiting: No reported n/v overnight or today. U/s of gallbladder on 03/07 without evidence of acute cholecystitis. - Can be an aspect of anaplasmosis; will monitor. Resolved by discharge. Ate breakfast and felt well. (4) Generalized weakness: Likely due to acute illness. * PT/OT consults - recommend going home. (5) Hx-TIA (transient ischemic attack): 8 years ago. No present focal symptoms. * Continue outpatient ASA 81mg, simvastatin 80mg (6) Hypercholesterolemia: Chronic. * Continue home ezetimbe, simvastatin (7) Arteriosclerotic cardiovascular disease (ASCVD): No chest pain today. * Continue home ASA, simvastatin (8) Abnormal finding on imaging: Patient with endometrial stripe/thickening on CTAP on admission. --> Will need non-emergent pelvic ultrasound outpatient. (9) Osteoarthritis: Chronic. Stable Right hip OA -> continue oxycodone 5mg in lieu of outpatient oxycodone-APA while inpatient. Plan for surgery in early April with Dr. Jorge Lucero. Patient doesn't want to miss this for anything as it is her main issue presently. * Meloxicam 15mg prn * No reason this will delay surgery. (10) Wheezing: Episode of wheezing on 03/07 & 03/08. Interstitial prominence bilaterally on CXR -> had been on continuous IVF, which were discontinued. - Echo done on 03/09 -> Results show normal EF; no LVH. - None noted in 2 days prior to discharge. (11) DVT prophylaxis: Lovenox 40 mg SQ daily Total Time Total Time Spent Total Time Spent (In Minutes): 35 Discharge Plan Discharge Items Patient Disposition: Home - Self-Care Reason For Visit: COLITIS, N/V/DIARRHEA Discharge Diagnosis: Anaplasmosis (tick-borne disease) Activity: Resume your previous activity Non-emergency contact: Primary Care Provider and Surgeon Call non-emergency contact if: your symptoms worsen and your temperature is above 101 Follow-up/Referrals: Iván Raphael III, MD [Primary Care Provider] - 03/24/20 10:30 am Diet: Heart Healthy Addtl Attending Provider Instructions: You were admitted to the hospital with nausea, vomiting, and diarrhea. Initially, we were worried this was a bowel infection such as C. diff; however, this test was negative. You had multiple high fevers. Our testing indicates you have an infection with something called Anaplasma which is a type of bacteria carried by ticks. It is similar to (but different from) Lyme disease (also a bacteria carried by ticks). You will be on an antibiotic called doxycycline for 8 more days (a total of a 10-day course). This will cure the Anaplasmosis. This should not interfere with your scheduled surgery with Dr. Lucero which I know you are very interested in having. Weirdly enough, this can also cause GI symptoms such as nausea & vomiting. Diarrhea is less common, so possibly this just occurred as a coincidence, or maybe you are having a rare complication with it. However, all of this was improving by the time you were ready to be discharged. Please follow up with Dr. Raphael in the next 1-2 weeks and call his office if you have more concerning symptoms. Pending Studies at Discharge: No Stand-Alone Forms: My [facility], Smoking Cessation Medications and DC Order Prescriptions: New doxycycline hyclate 100 mg Capsule 100 mg PO BID@0700,2100 Qty: 16 RF: 0 Lactobacillus acidophilus 1 billion cell capsule 10 mg PO DAILY Qty: 20 RF: 0 Continued simvastatin 80 mg tablet 80 mg PO HS Qty: 30 RF: 11 fluocinolone acetonide oil 0.01 % drops 5 drops otic (ear) BID PRN (Reason: itching) Qty: 20 RF: 6 hydrocodone-acetaminophen 5-325 mg tablet 1 tab PO Q6H PRN (Reason: Pain) Qty: 30 RF: 0 oxycodone-acetaminophen [Percocet] 5-325 mg tablet 1 tab PO Q6H PRN (Reason: pain) Qty: 40 RF: 0 meloxicam 15 mg tablet 15 mg PO DAILY PRN (Reason: pain) Qty: 30 RF: 5 ezetimibe [Zetia] 10 mg tablet 10 mg PO QAM RF: 0 multivitamin Tablet 1 tab PO QAM RF: 0 calcium carbonate [Calcium 600] 600 mg calcium (1,500 mg) Tablet 600 mg PO QAM RF: 0 timolol maleate (PF) 0.25 % Dropperette 1 drp OPHTHALMIC (EYE) BID RF: 0 PreserVision AREDS [id number] ezeb-vy-dyxy Tablet 1 tab PO BID RF: 0 aspirin 81 mg Tablet,Delayed Release (Dr/Ec) 81 mg PO HS RF: 0 Discharge Orders: Discharge Order (Routine); Ordered 03/10/20 Ordered By: Hayden Engel Admission Data Admit Date/Time: 03/06/20 14:46 Attending Provider: Hayden Engel Admit Provider: Faisal Bailey Primary Care Provider: Iván Raphael III Other Providers: Antwon Juarez ; Hayden Engel Other Interventions: Discharge Summary Assessment (RN) Last Done: 03/10/20 12:49 DC Date/Time DO NOT enter until pt leaves facility: 03/10/20 14:33 Coding Level of Care Code D/C Day Management >30 mins Diagnoses Anaplasmosis A77.49 Diarrhea R19.7 Nausea & vomiting R11.2 Generalized weakness R53.1 Hx-TIA (transient ischemic attack) Z86.73 Hypercholesterolemia E78.00 Arteriosclerotic cardiovascular disease (ASCVD) I25.10 Abnormal finding on imaging R93.89 Osteoarthritis M19.90 Wheezing R06.2 DVT prophylaxis Z29.9
== END 2020-03-10 14:33 | disposition home or self-care (01) | DRG 869 ==
LOC: 3N 17:38 → ED 17:38 → SUATTDRO 21:32 → 3N 22:02 → 2S 03-06 01:30 → 3N 03-06 05:32 → SUATTDRO 03-06 14:46

== ENCOUNTER 2020-04-03 06:36 | Observation (INO) ==
--- NOTE | 2020-03-20 11:42 | PAT Medication Instructions ---
Medication Instructions Date of Service March 20, 2020 Home Medications Medication Instructions Recorded simvastatin 80 mg tablet 80 mg PO HS #30 tab 06/18/19 fluocinolone acetonide oil 0.01 % 5 drops OTIC (EAR) BID PRN #20 ml 11/11/19 ear drops hydrocodone 5 mg-acetaminophen 325 1 tab PO Q6H PRN #30 tab 12/10/ mg tablet oxycodone-acetaminophen 5 mg-325 1 tab PO Q6H PRN #40 tab 02/03/ mg tablet doxycycline hyclate 100 mg capsule 100 mg PO DAILY #8 cap 03/18/20 PreserVision AREDS 1 tab PO BID calcium carbonate [Calcium 600] 600 mg PO QAM multivitamin 1 tab PO QAM timolol maleate (PF) 1 drp OPHTHALMIC (EYE) BID simvastatin 80 mg tablet 80 mg PO HS fluocinolone acetonide oil 0.01 % ear drops 5 drops OTIC (EAR) BID PRN hydrocodone 5 mg-acetaminophen 325 mg tablet 1 tab PO Q6H PRN oxycodone-acetaminophen 5 mg-325 mg tablet 1 tab PO Q6H PRN aspirin 81 mg PO HS ezetimibe [Zetia] 10 mg PO QAM Lactobacillus acidophilus 10 mg PO BID doxycycline hyclate 100 mg capsule 100 mg PO DAILY Continue as directed doxycycline hyclate 100 mg capsule 100 mg PO DAILY STOP taking 2 weeks before surgery PreserVision AREDS 1 tab PO BID DO NOT take the morning of surgery calcium carbonate [Calcium 600] 600 mg PO QAM multivitamin 1 tab PO QAM Lactobacillus acidophilus 10 mg PO BID Take morning of surgery With a small sip of water, OTHERWISE NOTHING TO EAT OR DRINK AFTER MIDNIGHT: timolol maleate (PF) 1 drp OPHTHALMIC (EYE) BID fluocinolone acetonide oil 0.01 % ear drops 5 drops OTIC (EAR) BID PRN (if needed) hydrocodone 5 mg-acetaminophen 325 mg tablet 1 tab PO Q6H PRN (okay to take up to 4 hours prior to surgery if needed) oxycodone-acetaminophen 5 mg-325 mg tablet 1 tab PO Q6H PRN (okay to take up to 4 hours prior to surgery if needed) ezetimibe [Zetia] 10 mg PO QAM Take evening before surgery timolol maleate (PF) 1 drp OPHTHALMIC (EYE) BID simvastatin 80 mg tablet 80 mg PO HS fluocinolone acetonide oil 0.01 % ear drops 5 drops OTIC (EAR) BID PRN (if needed) hydrocodone 5 mg-acetaminophen 325 mg tablet 1 tab PO Q6H PRN (if needed) oxycodone-acetaminophen 5 mg-325 mg tablet 1 tab PO Q6H PRN (if needed) aspirin 81 mg PO HS Lactobacillus acidophilus 10 mg PO BID Other Notes If you have any questions please call us at [phone] or [phone] or [phone] or [phone]
--- NOTE | 2020-03-23 12:14 | Anesthesiology Consultation ---
Date of Service March 23, 2020 Assessment & Plan (1) Encounter for pre-operative examination: COVID Status: As of 03/24 assessment, patient denies travel to endemic area, known exposure/sick contacts, or symptoms of COVID19. tested for COVID19 on 02/20 and 03/05 due to symptoms eventually found to be due to anaplasmosis. Preoperative COVID19 testing to be completed prior to surgery. Chart Review Chart Review: Acceptable Risk for Surgery and Patient seen in Pre Admission Testing Teaching & Discussion Instructed NPO after midnight before surgery, except medications with 15 cc of water. Medication instructions provided according to the PAT guidelines. History Surgery Operation Date: 04/03/20 08:50 Proposed Procedures p Right Anterior Total Hip Arthroplasty - Jorge Lucero DO Height/Weight Height: 5 ft 2 in Weight: 67.6 kg Allergies Allergy/AdvReac Type Severity Reaction Status Date / Time ondansetron [From Zofran] AdvReac Intermediate Vomiting Verified 03/24/20 11:38 morphine AdvReac Mild NAUSEA Verified 03/18/20 11:02 VOMITING levothyroxine AdvReac Unknown Unknown Verified 03/18/20 11:02 Medications Home Medications Medication Instructions Recorded Confirmed Last Taken PreserVision AREDS 1 tab PO BID 02/21/19 03/18/20 03/05/20 08:00 calcium carbonate [Calcium 600] 600 mg PO QAM 02/21/19 03/18/20 03/05/20 multivitamin 1 tab PO QAM 02/21/19 03/18/20 03/05/20 timolol maleate (PF) 1 drp OPHTHALMIC (EYE) BID 02/21/19 03/18/20 03/05/20 08:00 simvastatin 80 mg tablet 80 mg PO HS #30 tab 06/18/19 03/18/20 03/04/20 fluocinolone acetonide oil 0.01 % 5 drops OTIC (EAR) BID PRN #20 ml 11/11/19 03/18/20 Unknown ear drops hydrocodone 5 mg-acetaminophen 325 1 tab PO Q6H PRN #30 tab 12/11/19 03/18/20 Unknown mg tablet oxycodone-acetaminophen 5 mg-325 1 tab PO Q6H PRN #40 tab 02/04/20 03/18/20 Unknown mg tablet aspirin 81 mg PO HS 02/23/20 03/18/20 03/04/20 ezetimibe [Zetia] 10 mg PO QAM 03/05/20 03/18/20 03/05/20 Lactobacillus acidophilus 10 mg PO BID 03/16/20 03/18/20 Unknown doxycycline hyclate 100 mg capsule 100 mg PO DAILY #8 cap 03/18/20 03/18/20 Unknown Past Medical History Medical History Anaplasmosis ADMITTED [facility]LY 03/2020. FINISHED DOXYCYCLINE COURSE 03/22/20. FEELS BACK TO BASELINE, FEELING WELL. Bleeding per rectum (Resolved) Chronic diarrhea (Resolved) Glaucoma Hearing deficit BILATERAL HEARING AIDES Hyperlipidemia Osteoarthritis Sialoadenitis (Resolved) Stroke syndrome (Resolved) TIA (transient ischemic attack) 8 years ago. No residual deficits Exercise / Class Metabolic Activity III < 4 Walking/Shop/Light housework (NO CP OR SOB WITH AMBULATION, USING CANE 2/2 HIP PAIN) Past Family History Family History Mother Fallopian tube carcinoma Ovarian cancer Father Coronary heart disease Myocardial infarction Denies family history of Prostate cancer Breast cancer Colorectal cancer Past Surgical History Surgical History History of carotid endarterectomy WITH STENT (LEFT) 8 years ago History of colonoscopy ATTEMPTED, HAS NEVER HAD A SUCCESSFUL COLONOSCOPY D/T NO ANESTHESIA History of detached retina repair LEFT EYE History of tonsillectomy History of total knee replacement BILATERAL History of total shoulder replacement LEFT Past Anesthesia History No Hx of Anesthesia Complications and No Family Hx of Anesthesia Complications History of PONV No Hx of PONV (ONLY N/V FROM MORPHINE) and No Hx of Motion Sickness Social History Smoking Status: Former smoker tobacco type: cigarettes Do You Dip or Chew Tobacco: No Smoking End Date: QUIT 10-15 YRS AGO Alcohol type: wine alcohol intake frequency: 0-2 drinks per day Alcohol Intake Frequency Comment: NONE PAST 4-6 WEEKS Hx Substance Use: No (unable to answer) substance use type: does not use Review of Systems Pt denies any recent chest pain, shortness of breath, palpitations, cough, fever or URI. Physical Exam Vital Signs BP: 133/83 P: 87bpm SPO2: 98% RA T: 97.9 F R: 16 ENMT Mouth: no dental restorations, no chipped teeth and no loose teeth Thyromental Distance: > or= 3.5 Finger Breadths (4) Mallampati Class: II Neck normal visual inspection; neck extension not limited Respiratory normal respiratory effort Auscultation: lungs clear to auscultation bilaterally Cardiovascular Rate/Rhythm: regular rate and regular rhythm Heart Sounds: no murmur Extremities: no edema Testing Laboratory Results 03/23/20 12:21 Blood Type A Positive 03/23/20 12:21 Antibody Screen NEGATIVE 03/23/20 12:21 03/10/20 SODIUM: 134 POTASSIUM: 3.5 CHLORIDE: 106 CO2: 22 BUN: 12 CREATININE: 0.47 GLUCOSE: 03/05/20 PT: 11.6 PTT: 29.5 INR: 1.1 Electrocardiogram Date: 03/05/20 Findings: + NSR @ (100bpm) Possible LAE. iRBBB. Chest X-Ray Date: 03/08/20 Slight nonspecific interstitial prominence bilaterally. No well-defined focal infiltrate. Echocardiogram Date: 03/09/20 EF: 60-65% LV Function: normal RWMA: + none Other Findings: no LVH [Indication: eval for endocarditis during admission for anaplasmosis] Moderate LA dilation. Moderate to severe mitral annular calcification involving the posterior annulus. No vegetation noted, but cannot exclude given degree of mitral annular calcification. No prior study available.
[2020-03-23 14:33] LABS: Hematocrit (blood only) 34.1 % (37-47); Hemoglobin 10.6 g/dL (12.0-16.0); Mean Corpuscular Hemoglobin 29.7 pg (25-34); Mean Corpuscular Hgb Conc 31.1 g/dL (32-36); Mean Corpuscular Volume 95.5 fL (80-100); Mean Platelet Volume 10.8 fL (7.4-10.4); Platelet Count 478 K/uL (130-400); RDW Coefficient of Variation 16.9 % (11.5-14.5); RDW Standard Deviation 58.3 fL (36.4-46.3); Red Blood Count 3.57 M/uL (4.2-5.4); White Blood Count 10.09 K/uL (4.8-10.8)
[2020-03-23 15:29] LABS: Basophils # (auto) 0.05 K/uL (0-0.2); Basophils % (auto) 0.5 %; Eosinophils # (auto) 0.08 K/uL (0-0.5); Eosinophils % (auto) 0.8 %; Hypochromasia Present; Immature Granulocytes # (auto) 0.01 K/uL (0.00-0.02); Immature Granulocytes % (auto) 0.1 %; Lymphocytes # (auto) 5.24 K/uL (1.2-3.4); Lymphocytes % (auto) 51.9 %; Monocytes # (auto) 0.87 K/uL (0.11-0.59); Monocytes % (auto) 8.6 %; Neutrophils # (auto) 3.84 K/uL (1.4-6.5); Neutrophils % (auto) 38.1 %
--- NOTE | 2020-04-02 15:34 | History & Physical Report ---
Date of Service April 02, 2020 Assessment & Plan (1) Osteoarthritis of right hip: We will proceed with a right total hip arthroplasty. Postoperatively she will be placed on aspirin for DVT prophylaxis and she will be kept overnight for postoperative medical management. She plans to go to outpatient physical therapy at [facility] upon discharge. Teena is a low risk for joint replacement surgery without any major comorbidities. Present on Admission?: Yes History of Present Illness Chief Complaint: Primary osteoarthritis of the right hip Primary Care Provider: Iván Raphael MD Teena is a pleasant 79-year-old female who is been doing chronic increasing right hip and groin pain. Is been going on for about a year. I treat her conservatively with anti-inflammatories but she continues to have pain. She ambulates with a cane and sometimes a wheelchair because of her hip pain. She is no longer responded to conservative treatment. She has elected proceed with a right total hip arthroplasty. Allergies Allergy/AdvReac Type Severity Reaction Status Date / Time ondansetron [From Zofran] AdvReac Intermediate Vomiting Verified 03/24/20 11:38 morphine AdvReac Mild NAUSEA Verified 03/18/20 11:02 VOMITING levothyroxine AdvReac Unknown Unknown Verified 03/18/20 11:02 Home Medications Home Medications Medication Instructions Recorded Confirmed Type PreserVision AREDS 1 tab PO BID 02/21/19 03/18/20 History calcium carbonate [Calcium 600] 600 mg PO QAM 02/21/19 03/18/20 History multivitamin 1 tab PO QAM 02/21/19 03/18/20 History timolol maleate (PF) 1 drp OPHTHALMIC (EYE) BID 02/21/19 03/18/20 History simvastatin 80 mg tablet 80 mg PO HS #30 tab 06/18/19 03/18/20 Rx fluocinolone acetonide oil 0.01 % 5 drops OTIC (EAR) BID PRN #20 ml 11/11/19 03/18/20 Rx ear drops hydrocodone 5 mg-acetaminophen 325 1 tab PO Q6H PRN #30 tab 12/11/19 03/18/20 Rx mg tablet oxycodone-acetaminophen 5 mg-325 1 tab PO Q6H PRN #40 tab 02/04/20 03/18/20 Rx mg tablet aspirin 81 mg PO HS 02/23/20 03/18/20 History ezetimibe [Zetia] 10 mg PO QAM 03/05/20 03/18/20 History Lactobacillus acidophilus 10 mg PO BID 03/16/20 03/18/20 History doxycycline hyclate 100 mg capsule 100 mg PO DAILY #8 cap 03/18/20 03/18/20 Rx Past Med/Surg History Medical History Anaplasmosis ADMITTED [facility] EARLY 03/2020. FINISHED DOXYCYCLINE COURSE 03/22/20. FEELS BACK TO BASELINE, FEELING WELL. Bleeding per rectum (Resolved) Chronic diarrhea (Resolved) Glaucoma Hearing deficit BILATERAL HEARING AIDES Hyperlipidemia Osteoarthritis Sialoadenitis (Resolved) Stroke syndrome (Resolved) TIA (transient ischemic attack) 8 years ago. No residual deficits Surgical History History of carotid endarterectomy WITH STENT (LEFT) 8 years ago History of colonoscopy ATTEMPTED, HAS NEVER HAD A SUCCESSFUL COLONOSCOPY D/T NO ANESTHESIA History of detached retina repair LEFT EYE History of tonsillectomy History of total knee replacement BILATERAL History of total shoulder replacement LEFT Family History Mother Fallopian tube carcinoma Ovarian cancer Father Coronary heart disease Myocardial infarction Denies family history of Prostate cancer Breast cancer Colorectal cancer Social History Preferred Language: Faroese Communication Ability: Effective Communication Ability Comment: BILAT HEARING AIDES-VERY [place] Director Of Promotions Required: No Beliefs That Will Affect Care: None marital status: Current Living Situation: Other Current Living Situation Comment: pt very [place] and unable to understand current occupational status: retired Other Information That Helps Us Care for You: No Feels Safe at Home: Yes Safety Concerns: Feels Safe At This Time Smoking Status: Former smoker Tobacco Type: cigarettes ; Age Started Using Tobacco: 19 ; Do You Dip or Chew Tobacco: No ; Smoking End Date: QUIT 10-15 YRS AGO ; Second Hand Exposure: No ; Hx Substance Use: No (unable to answer) Childhood Exposure to Second-Hand Smoke: No Review of Systems Review of Systems: All systems reviewed & are unremarkable except as noted in HPI & below Physical Exam Constitutional: WD/WN, vitals as above Eyes: PERRL, conjunctivae normal, anicteric sclerae ENMT: external ear and nose normal, oropharynx normal Neck: trachea midline, no thyromegaly Respiratory: normal respiratory effort Cardiovascular: RRR, no murmur, no edema Gastrointestinal (Abdomen): normal bowel sounds, soft, nontender, no hepatosplenomegaly Musculoskeletal: Physical examination of the right hip reveals decreased range of motion with flexion, internal and external rotation. There is significant groin pain with forced internal rotation of the hip his leg lengths are essentially equal. Psychiatric: A+Ox3, euthymic affect Results & Data Results & Data ([facility]) Diagnostic Findings Radiographs of the right hip and pelvis demonstrate advanced osteoarthritis with joint space narrowing osteophyte formation and [id number] articulation. PG Care Time/CCT Total # of Minutes Spent Total Time Spent with Patient: Total time spent is greater than 50% in coordination of care (as documented) at patient's floor/unit and/or counseling patient: Coding Level of Care Code 98796 Initial Inpt Care Lvl 3 Diagnoses Osteoarthritis of right hip M16.11
[~2020-04-03 06:36] MED LIST changes: -ASPI81TA28 PO; +BUPIVACAINE 0.5 % 5 MG/1 ML PF 10ML VIAL ONE; -CALC600T9 PO; +CEFAZOLIN 1000MG 1,000 MG/7.5 ML SYR IV SCH; -CLB/200 PO; -EZET10TA63 PO; +FAMOTIDINE 20 MG TAB PO SCH; +GABAPENTIN 300 MG CAP PO SCH; -IBUP-1050 PO; +LR 500ML BOLUS, THEN 15ML/HR IV SCH; +LR 60ML/HR IV SCH; -MULT-190 PO; -MULT-506 PO; +ROPIVACAINE 0.5% HCL/PF 150 MG, BUPIVACAINE 0.5% MPF 30 ML, EPINEPHrine 30MG/30ML (OR U... INSTIL SCH; -RXC5 PO; -SIMV80TA2 PO; -TIMO0.05 OP; +TRANEXAMIC ACID 1,000 MG **IV Intra-op IV SCH; +TRANEXAMIC ACID 1,000 MG **IV Pre-op IV SCH; -TRAZ100T29 PO; +dexAMETHasone 4 MG TAB PO SCH
--- NOTE | 2020-04-03 06:37 | History & Physical Bridge Note ---
Date of Service April 03, 2020 History & Physical Bridge Note I have examined the patient, reviewed the History & Physical and in the interval since the performance of the History & Physical I have noted the following changes of clinical significance: no changes noted
[2020-04-03] MEDS ORDERED: ACETAMINOPHEN 500 MG TAB ONE (06:53)
[2020-04-03] MEDS ORDERED: fentaNYL citrate 100 MCG/2 ML VIAL ONE (07:04)
[2020-04-03] MEDS ORDERED: MIDAZOLAM HCL 1 MG/ML 2ML VIAL ONE (07:04)
[2020-04-03] MEDS ORDERED: ATROPINE SULFATE 0.1 MG/ML 10ML SYR IV PRN (08:10)
[2020-04-03] MEDS ORDERED: fentaNYL citrate 100 MCG/2 ML VIAL IV PRN (08:10)
[2020-04-03] MEDS ORDERED: ePHEDrine sulfate 50 MG/ML AMP IV PRN (08:10)
[2020-04-03] MEDS ORDERED: ONDANSETRON INJ 2 MG/ML 2 ML VIAL IV PRN ×2 (08:10→11:48)
[2020-04-03] MEDS ORDERED: ORTHO JOINT ANESTHETIC ONE (08:36)
[2020-04-03] MEDS ORDERED: PROPOFOL IV EMULSION 10 MG/ML 20 ML VIAL IV ONE (09:24)
--- NOTE | 2020-04-03 10:11 | Operative Report ---
PG Post Operative Report Pre & Post Diagnosis Operation Date: 04/03/20 09:00 Pre-Op Diagnosis: RIGHT HIP DEGENERATIVE JOINT DISEASE Post-Op Diagnosis: RIGHT HIP DEGENERATIVE JOINT DISEASE I identified the patient and participated in the time-out.: Yes Procedure Operation Date: 04/03/20 09:00 Actual Procedures p Right Anterior Total Hip Arthroplasty(Right) - Jorge Lucero DO Surgeon Jorge Lucero DO Rib Puller Jorge Lopes PAC Estimated Blood Loss 200 Findings Consistent with Post-Op Diagnosis Specimens Right femoral head Complications none Disposition Disposition: Recovery Room Indications Teena is a pleasant 80-year-old female who presented my office with complaints of increasing right hip and groin pain. X-rays and clinical examination were diagnostic for advanced osteoarthritis of the right hip. After failing conservative treatment, she elected proceed with a right anterior total hip arthroplasty. Description of Procedure Implants used I used a Biomet Taperloc total hip arthroplasty system with a size 11 standard offset micro Taperloc stem, a 50 mm G7 cup with a 25mm screw, an E1 polyethylene liner, a 36 mm ceramic head with a 0 neck. Teena arrived at the hospital for the above procedure. She was seen in the preoperative holding area and the operative extremity was identified and signed. She was given a spinal anesthetic, a preoperative antibiotic, and TXA. She was then taken back to the operating room and laid on the table in the supine position. She was given basic sedation. The operative leg was secured to a Puristst leg positioner. The hip was then prepped and draped in sterile fashion. A timeout was done and the patient and the operative extremity was properly identified. An anterior approach was used. Dissection was taken down through the fascia and the tensor muscle belly was retracted laterally and the rectus was retracted medially. The circumflex vessels were identified and ligated. The capsule was then incised and tagged for later repair. The femoral neck was then cut and the femoral head was removed. The acetabulum was exposed. Time was spent doing a complete circumferential labral release. Sequential reaming of the acetabulum up to a size 49 reamer was done. Final reamings were done under fluoroscopy to ensure appropriate version. A Biomet 50 mm G7 cup was then impacted into place. A single 25 mm screw was placed. The E1 polyethylene liner was then snapped into place. Surrounding soft tissues were then injected with 100 cc of an orthopedic pain control cocktail. The proximal femur was then exposed. Sequential broaching up to a size 11 broach was done. Off that broach a size 36 head with a 0 neck was trialed. The hip was reduced and fluoroscopic images showed anatomic alignment of the implants in acceptable length. The broach was removed. The final size 11 standard offset micro Taperloc stem was then impacted into place. A ceramic 36 mm head with a 0 neck was then impacted onto the stem and the hip was reduced. Final fluoroscopic images showed anatomic alignment of the hip. The capsule was then closed with #1 Vicryl suture. A dilute betadyne lavage was then done for 3 minutes. The joint was then irrigated with normal saline solution. The fascia was closed with #1 PDS suture. Skin was closed with 2-0 Vicryl, clare, and a Silverlon dressing. She was then transferred to a hospital bed and taken to the post anesthesia care unit in stable condition. She tolerated the procedure well. Jorge Lopes PA-C, was present for the entire procedure. He was critical for patient positioning, prepping, draping, retraction exposure, wound closure and application of sterile dressing. I attest to the content of the Intraoperative Record and any orders documented t herein. Any exceptions are noted below.
--- NOTE | 2020-04-03 10:33 | Fluoroscopy Report ---
FL hip RT 1V CLINICAL HISTORY: RT ANTERIOR HIP COMPARISON STUDY: None. FLUOROSCOPY TIME: 24 seconds. FINDINGS: 2 fluoroscopic spot image of the right hip demonstrate a right total hip arthroplasty. The hardware is intact. No fracture or dislocation. IMPRESSION: Fluoroscopy provided for right total hip arthroplasty. ACT 112: Negative or not required by law. Electronically signed by: Forest Warner M.D. 04/03/2020 10:31 AM
--- NOTE | 2020-04-03 11:05 | XRay Report ---
XR hip 1V RT w pelvis CLINICAL HISTORY: IN PACU - A/P PELVIS and LATERAL HIP joint replacement COMPARISON: 12/09/2019 DISCUSSION: Anatomic alignment post total right hip arthroplasty. Could contact between prosthetic an d underlying bone. Expected soft tissue postoperative change. IMPRESSION: Anatomic alignment post total right hip arthroplasty. ACT 112: Negative or not required by law. The above report was generated using voice recognition software. It may contain grammatical, syntax or spelling errors. Electronically signed by: Rashad Holder M.D. 04/03/2020 11:04 AM
--- NOTE | 2020-04-03 11:12 | Anesthesiology Progress Note ---
Date of Service April 03, 2020 Anesthesia Post Procedure Vital Signs Vital Signs: Temp Pulse Pulse Resp BP BP Pulse Ox 04/03/20 11:05 64 12 152/86 H 96 04/03/20 10:55 68 15 148/77 H 96 04/03/20 10:45 75 20 129/84 96 04/03/20 10:35 97.2 F L 71 14 149/78 H 97 04/03/20 07:01 98.2 F 86 16 175/91 H 99 Pain Intensity Right Hip: Pain Intensity: 1 Transfer of Care Handoff Completed per policy Notes Mental Status: alert / awake / arousable and participated in evaluation Patient Amnestic to Procedure: Yes Nausea / Vomiting: adequately controlled Pain: adequately controlled Airway Patency, RR, SpO2: stable & adequate BP & HR: stable & adequate Hydration State: stable & adequate Neuraxial Anesthesia: was administered and sensory block is resolving Anesthetic Complications: no major complications apparent and Pt Satisfied with anesthetic care
[2020-04-03] MEDS ORDERED: MAGNESIUM HYDROXIDE SUSP 30 ML UDC PO PRN (11:48)
[2020-04-03] MEDS ORDERED: SODIUM CHLORIDE 0.9% 1000ML 1,000 ML IV SCH (11:48)
[2020-04-03] MEDS ORDERED: bisacodyL 10 MG SUPP PR PRN (11:48)
[2020-04-03] MEDS ORDERED: NALOXONE HCL 0.4 MG/1 ML VIAL/CARP IV PRN (11:48)
[2020-04-03] MEDS ORDERED: METOCLOPRAMIDE HCL INJ 5 MG/ML 2 ML VIAL IV PRN (11:48)
[2020-04-03] MEDS ORDERED: HYDROmorphone INJ 0.5 MG/0.5 ML SYR IV PRN (11:48)
[2020-04-03] MEDS: ACETAMINOPHEN 500 MG TAB PO SCH ×2 (13:46→21:33)
[2020-04-03] MEDS: KETOROLAC TROMETHAMINE 15 MG/ML VIAL IV SCH ×2 (13:49→19:43)
[2020-04-03] MEDS: SODIUM CHLORIDE 0.9% 1000ML 1,000 ML IV SCH (16:21)
[2020-04-03] MEDS: CEFAZOLIN 2000MG 2,000 MG/15 ML SYR IV SCH (18:22)
[2020-04-03] MEDS: DOCUSATE SODIUM 100 MG CAP PO SCH (20:23)
[2020-04-03] MEDS: ASPIRIN 81 MG ECTAB PO SCH (20:23)
[2020-04-03] MEDS ORDERED: SIMVASTATIN 80 MG TAB PO SCH (21:00)
[2020-04-03] MEDS ORDERED: SENNA 8.6 MG TAB PO SCH (21:00)
[2020-04-03] MEDS ORDERED: NON-FORMULARY MEDICATION (Vitamins A,C,E-Zinc-Copper [Preservision Areds] 1 TAB) PO SCH (21:00)
[2020-04-03] MEDS: TIMOLOL MALEATE 0.25% OP SOLN 5 ML BTL OP SCH (21:33)
[2020-04-03] MEDS: OXYCODONE HCL IR 5 MG TAB (IMMEDIATE RELEASE) PO PRN (23:25)
[2020-04-04] MEDS: SODIUM CHLORIDE 0.9% 1000ML 1,000 ML IV SCH (02:11)
[2020-04-04] MEDS: CEFAZOLIN 2000MG 2,000 MG/15 ML SYR IV SCH (02:16)
[2020-04-04] MEDS: KETOROLAC TROMETHAMINE 15 MG/ML VIAL IV SCH ×2 (02:16→07:35)
[2020-04-04] MEDS: ACETAMINOPHEN 500 MG TAB PO SCH (05:24)
[2020-04-04 06:10] LABS: Basophils # (auto) 0.01 K/uL (0-0.2); Basophils % (auto) 0.1 %; Hematocrit (blood only) 29.3 % (37-47); Hemoglobin 9.6 g/dL (12.0-16.0); Immature Granulocytes # (auto) 0.04 K/uL (0.00-0.02); Immature Granulocytes % (auto) 0.3 %; Lymphocytes # (auto) 3.16 K/uL (1.2-3.4); Lymphocytes % (auto) 20.9 %; Mean Corpuscular Hemoglobin 30.1 pg (25-34); Mean Corpuscular Hgb Conc 32.8 g/dL (32-36); Mean Corpuscular Volume 91.8 fL (80-100); Mean Platelet Volume 10.2 fL (7.4-10.4); Monocytes # (auto) 1.01 K/uL (0.11-0.59); Monocytes % (auto) 6.7 %; Neutrophils # (auto) 10.87 K/uL (1.4-6.5); Platelet Count 374 K/uL (130-400); RDW Coefficient of Variation 16.1 % (11.5-14.5); RDW Standard Deviation 54.2 fL (36.4-46.3); Red Blood Count 3.19 M/uL (4.2-5.4); White Blood Count 15.09 K/uL (4.8-10.8)
[2020-04-04 06:45] LABS: BUN Creatinine Ratio 31.6 (10-20); Calcium 8.1 mg/dl (8.5-10.1); Creatinine Clr Calc Pharmacy 67.2 ml/min; Est GFR (African American) 99.9; Est GFR (Non-African American) 86.2
--- NOTE | 2020-04-04 07:23 | Orthopedic Progress Note ---
Date of Service April 04, 2020 Assessment & Plan (1) History of right hip replacement: Overall she is doing very well. She is not having much pain in the right hip. She will be seen by physical therapy this morning for ambulation and range of motion exercises. She is on aspirin for DVT prophylaxis. She can be discharged home later today. She will follow-up with orthopedics in 2 weeks. Present on Admission?: Yes Carol Dickinson was seen and examined at bedside this morning. Overall she is doing well. She is not having much pain in the right hip. She was up and ambulating to the bathroom. She has no complaints. Physical Exam Musculoskeletal: On physical examination of the right hip, the Silverlon dressing is clean and dry. Her leg lengths are equal. She has active dorsiflexion and plantarflexion of the right ankle. Results & Data ([facility]) Vital Signs (Past 12 Hours) Vital Signs Temp Pulse Resp BP Pulse Ox 04/04/20 02:42 36.4 C L 78 18 113/63 97 04/03/20 22:55 36.5 C 84 16 130/77 97 Laboratory Results H & H 03/23/20 04/04/20 Range/Units 12:21 05:47 Hgb 10.6 L 9.6 L (12.0-16.0) g/dL Hct 34.1 L 29.3 L (37-47) % Diagnostic Findings Postoperative x-rays of the right hip show the prosthesis to be in anatomic alignment without any evidence of fracture, dislocation, or loosening. PG Care Time/CCT Total # of Minutes Spent Total Time Spent with Patient: Total time spent is greater than 50% in coordination of care (as documented) at patient's floor/unit and/or counseling patient: Coding Level of Care Code None Diagnoses History of right hip replacement Z96.641
--- NOTE | 2020-04-04 07:24 | Discharge Summary ---
Date of Service April 04, 2020 Admission HPI Per Admitting Provider Teena is a pleasant 79-year-old female who is been doing chronic increasing right hip and groin pain. Is been going on for about a year. I treat her conservatively with anti-inflammatories but she continues to have pain. She ambulates with a cane and sometimes a wheelchair because of her hip pain. She is no longer responded to conservative treatment. She has elected proceed with a right total hip arthroplasty. Principal Diagnosis Right total hip arthroplasty Discharge Data Allergies Allergy/AdvReac Type Severity Reaction Status Date / Time ondansetron [From Zofran] AdvReac Intermediate Vomiting Verified 04/03/20 07:32 morphine AdvReac Mild NAUSEA Verified 04/03/20 07:32 VOMITING levothyroxine AdvReac Unknown Unknown Verified 04/03/20 07:32 Consultations 04/04/20 08:00 Consult Case Management - Discharge Planning Routine Procedures Performed Operation Date: 04/03/20 09:00 Actual Procedures p Right Anterior Total Hip Arthroplasty(Right) - Jorge Lucero DO Ordered Studies 04/03/20 09:00 FL fluoroscopy <1hr Routine FL hip RT 1V Routine Hospital Course (1) History of right hip replacement: On April 03, [address] [facility] and underwent a left anterior total hip arthroplasty without complication. She had a spinal anesthetic. Postoperatively she was started on aspirin for DVT prophylaxis and transferred to the general orthopedic floors. Her hospital course was uneventful. On postop day #1 her H&H was stable and her pain was well controlled. She was able to participate well with physical therapy doing ambulation and range of motion exercises. She was then discharged to home. She will follow-up with orthopedics in 2 weeks. Total Time Total Time Spent Total Time Spent (In Minutes): 20 Discharge Plan Discharge Items Patient Disposition: Home - Home Health Services Reason For Visit: RIGHT HIP DEGENERATIVE JOINT DISEASE Discharge Diagnosis: Right total hip arthroplasty Activity: As commented below Non-emergency contact: Surgeon Call non-emergency contact if: your wound has increased redness and your wound has increased drainage Follow-up/Referrals: Iván Raphael III, MD [Primary Care Provider] - Diet: Regular Addtl Attending Provider Instructions: Activity and Therapy Recommendations: * If you are using [facility] then therapy will be provided at your home until they feel you have accomplished all of your goals. * If you are using [facility] then Physical Therapy will be provided until they feel you are ready to start Outpatient Physical Therapy. * If you are not using home therapy then Outpatient Physical Therapy should start about 3-5 days from your day of surgery. Therapy will last about 6-10 weeks * You were shown a series of exercises in the hospital. Do these exercises three times each day including the exercises you were shown in physical therapy. * Get up and walk several times each day.~ For the first four weeks, try not to stand or walk for more than one hour at a time. If you do stand or walk for more than one hour, you will not hurt anything, but your leg will likely swell.~~ * As you feel comfortable, you may change from the walker or crutches to a cane and~then to independent walking. Medications: * Narcotic You will likely be sent home from the hospital with a prescription for the narcotic pain medication that worked best throughout your stay. * Aspirin Most patients will be required to take Aspirin 81mg twice a day for 6 weeks after surgery. This is obtained [id number] and a prescription is not necessary. * Other medications may be prescribed for specific circumstances. If you have any questions, please call the office at . * Resume previous home medications unless otherwise instructed TEDs/Elastic Stockings: The white elastic stockings help limit swelling and prevent blood clots from forming in your legs. The more you wear them, the more they work. Wear them for six weeks. Dressing Care: Leave the Silverlon dressing on for 7 days. After 7 days you may remove the dressing. You may leave the clare open to air or cover them with a dry dressing so they do not rub on your pants. The clare will be removed at your 2 week follow-up appointment. Showering: You may shower immediately with the Silverlon dressing in place. Do not soak the dressing. After the dressing is removed you may shower normally with the clare exposed. Let soapy water run over the clare and pat them dry. Things To Watch For: * Drainage from the incision site that occurs more than one week after your surgery. * Increased redness at the incision site. * Fever above 102 degrees Fahrenheit. * Unusual chest pain or shortness of breath. * Call [facility] at with any of the above problems Follow-Up Visit: Follow-up with Dr. Lucero's PA (Jorge Lopes) 2-3 weeks after your day of surgery. He will remove your clare and answer any questions. If you have any additional questions or concerns, Dr Lucero is usually in the office at the same time and will be available An appointment was probably scheduled when you signed-up for surgery in the office. If you have any questions call Office Instructions: More detailed instructions as well as Frequently Asked Questions were provided in a folder by our office when you signed-up for surgery. Please review these instructions when you get home. If you have any further questions or concerns, please feel free to call the office at [phone] Pending Studies at Discharge: No Stand-Alone Forms: My [facility] [employer], Smoking Cessation Medications and DC Order Prescriptions: New oxycodone 5 mg Tablet 5 mg PO Q4H PRN (Reason: pain) Qty: 30 RF: 0 Continued simvastatin 80 mg tablet 80 mg PO HS Qty: 30 RF: 11 ezetimibe [Zetia] 10 mg tablet 10 mg PO QAM RF: 0 multivitamin Tablet 1 tab PO QAM RF: 0 calcium carbonate [Calcium 600] 600 mg calcium (1,500 mg) Tablet 600 mg PO QAM RF: 0 timolol maleate (PF) 0.25 % Dropperette 1 drp OPHTHALMIC (EYE) BID RF: 0 PreserVision AREDS 7,160-113-100 [id number] Tablet 1 tab PO BID RF: 0 cefdinir 300 mg capsule RF: 0 fluocinolone acetonide oil 0.01 % drops 5 drops otic (ear) WK PRN (Reason: itching) RF: 0 Changed aspirin 81 mg Tablet,Delayed Release (Dr/Ec) 81 mg PO BID 42 Days Qty: 0 RF: 0 Discontinued hydrocodone-acetaminophen 5-325 mg tablet 1 tab PO Q6H PRN (Reason: Pain) Qty: 30 RF: 0 Discharge Orders: Discharge Order (Routine); Ordered 04/04/20 Ordered By: Jorge Lucero Admission Data Admit Date/Time: 04/03/20 10:39 Attending Provider: Jorge Lucero Admit Provider: Jorge Lucero Primary Care Provider: Iván Raphael III Coding Level of Care Code D/C Day Management <30 mins Diagnoses History of right hip replacement Z96.641
[2020-04-04] MEDS: DOCUSATE SODIUM 100 MG CAP PO SCH (07:32)
[2020-04-04] MEDS: OXYCODONE HCL IR 5 MG TAB (IMMEDIATE RELEASE) PO PRN (07:32)
[2020-04-04] MEDS: ASPIRIN 81 MG ECTAB PO SCH (07:32)
[2020-04-04] MEDS: TIMOLOL MALEATE 0.25% OP SOLN 5 ML BTL OP SCH (07:33)
[2020-04-04] MEDS ORDERED: dexAMETHasone 4 MG TAB PO SCH (08:00)
[2020-04-04] MEDS ORDERED: EZETIMIBE 10 MG TABLET PO SCH (09:00)
[2020-04-04] MEDS ORDERED: MULTIVITAMIN TAB PO SCH (09:00)
== END 2020-04-04 11:03 | disposition home health service (06) ==
LOC: ASU 06:36 → 3E 06:36

== ENCOUNTER 2023-11-27 05:09 | Observation (INO) ==
--- NOTE | 2023-11-06 08:46 | PAT Medication Instructions ---
Medication Instructions Date of Service November 06, 2023 Home Medications Medication Instructions Recorded mesalamine 1.2 gram tablet,delayed 2.4 g (2 x 1.2 gram) PO BID 1 12/05/22 release month #120 tabs ezetimibe 10 mg tablet (Zetia) 10 mg PO QAM #90 tabs 03/27/23 simvastatin 80 mg tablet 80 mg PO HS #90 tabs 04/19/23 hydrocodone 5 mg-acetaminophen 325 1 tab PO Q6H PRN pain #30 tabs 06/09/23 mg tablet aspirin 81 mg tablet,delayed release 81 mg PO QAM cholecalciferol (vitamin D3) 25 mcg (1,000 unit) tablet (Vitamin D3) 25 mcg PO HS dorzolamide 2 %-timolol 0.5 % (PF) eye drops 1 drp ophthalmic (eye) BID mesalamine 1.2 gram tablet,delayed release 2.4 g (2 x 1.2 gram) PO BID calcium 600 mg capsule 600 mg PO BID vit A 7,160 unit-vit C 113 mg-vit E 100 [id number] tablet 2 tab PO BID ezetimibe 10 mg tablet (Zetia) 10 mg PO QAM simvastatin 80 mg tablet 80 mg PO HS hydrocodone 5 mg-acetaminophen 325 mg tablet 1 tab PO Q6H PRN pain fluocinolone acetonide oil 0.01 % ear drops 5 drp otic (ear) Q7D PRN itching pantoprazole 40 mg tablet,delayed release 40 mg PO QAM Continue as directed fluocinolone acetonide oil 0.01 % ear drops 5 drp otic (ear) Q7D PRN itching (if needed) ASK your prescriber and surgeon mesalamine 1.2 gram tablet,delayed release 2.4 g (2 x 1.2 gram) PO BID STOP taking 2 weeks before surgery vit A 7,160 unit-vit C 113 mg-vit E 100 [id number] tablet 2 tab PO BID DO NOT take the morning of surgery calcium 600 mg capsule 600 mg PO BID Take morning of surgery With a small sip of water, OTHERWISE NOTHING TO EAT OR DRINK AFTER MIDNIGHT: aspirin 81 mg tablet,delayed release 81 mg PO QAM (unless surgeon directed otherwise) dorzolamide 2 %-timolol 0.5 % (PF) eye drops 1 drp ophthalmic (eye) BID ezetimibe 10 mg tablet (Zetia) 10 mg PO QAM hydrocodone 5 mg-acetaminophen 325 mg tablet 1 tab PO Q6H PRN pain (if needed) pantoprazole 40 mg tablet,delayed release 40 mg PO QAM Take evening before surgery cholecalciferol (vitamin D3) 25 mcg (1,000 unit) tablet (Vitamin D3) 25 mcg PO HS dorzolamide 2 %-timolol 0.5 % (PF) eye drops 1 drp ophthalmic (eye) BID calcium 600 mg capsule 600 mg PO BID simvastatin 80 mg tablet 80 mg PO HS hydrocodone 5 mg-acetaminophen 325 mg tablet 1 tab PO Q6H PRN pain (if needed) Other Notes If you have any questions please call us at [phone] or [phone] or [phone] or [phone]
--- NOTE | 2023-11-07 11:59 | Anesthesiology Consultation ---
Date of Service November 07, 2023 Assessment & Plan (1) Encounter for pre-operative examination: Chart Review Chart Review: Acceptable Risk for Surgery and Patient seen in Pre Admission Testing Cochlear implant to right side; hearing aid to left side (will remove both for procedure)- speak to patient on left side when hearing devices removed - Patient is NOT an ideal OPJ candidate due to age and comorbidities (currently 23 hour obs) Per PAT appt on 11/07/23, no recent illness/disease exposures, illness related symptoms, or recent illness/disease positive tests. Will leave to surgeon's discretion if preop Covid testing needed Right Anterior Hip 04/03/20= Done with SAB at L4-5 with 1 attempt Teaching & Discussion Pre-Anesthesia Teaching/Discussion Notes: Instructed NPO after midnight before surgery,except medications with 15 cc of water. Medication instructions provided according to the [facility] guidelines. History Surgery Operation Date: 11/27/23 08:25 Proposed Procedures p Left Anterior Total Hip Arthroplasty - Jorge Lucero DO Height/Weight Height: 5 ft 2 in Weight: 74.5 kg Allergies Allergy/AdvReac Type Severity Reaction Status Date / Time levothyroxine AdvReac Intermediate Hives Verified 11/06/23 07:43 ondansetron [From Zofran] AdvReac Intermediate Vomiting Verified 11/06/23 07:43 morphine AdvReac Mild NAUSEA Verified 11/06/23 07:43 VOMITING Medications Home Medications Medication Instructions Recorded Confirmed Last Taken aspirin 81 mg tablet,delayed 81 mg PO QAM 10/26/20 11/06/23 12/12/22 release cholecalciferol (vitamin D3) 25 25 mcg PO HS 11/29/21 11/06/23 12/12/22 mcg (1,000 unit) tablet (Vitamin D3) dorzolamide 2 %-timolol 0.5 % (PF) 1 drp ophthalmic (eye) BID 11/29/21 11/06/23 12/12/22 eye drops calcium 600 mg capsule 600 mg PO BID 12/08/22 11/06/23 12/12/22 vit A 7,160 unit-vit C 113 mg-vit 2 tab PO BID 12/08/22 11/06/23 Unknown E 100 [id number] tablet ezetimibe 10 mg tablet (Zetia) 10 mg PO QAM #90 tabs 03/27/23 11/06/23 Unknown simvastatin 80 mg tablet 80 mg PO HS #90 tabs 04/19/23 11/06/23 Unknown hydrocodone 5 mg-acetaminophen 325 1 tab PO Q6H PRN pain #30 tabs 06/09/23 11/06/23 Unknown mg tablet fluocinolone acetonide oil 0.01 % 5 drp otic (ear) Q7D PRN itching 11/06/23 11/06/23 Unknown ear drops mesalamine 1.2 gram tablet,delayed 2.4 g (2 x 1.2 gram) PO BID 1 11/06/23 Unknown release month #120 tabs pantoprazole 40 mg tablet,delayed 40 mg PO QAM 11/06/23 11/06/23 Unknown release Past Medical History Medical History 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 weinberg told pt "he saw no evidence of this anymore" - Follows with GI routinely Exercise / Class Metabolic Activity II 4-5 Yardwork/Stairs/Walk up hill (one flight of stairs - no chest pain or SOB ) Past Family History Family History Mother Ovarian cancer Fallopian tube carcinoma Father Coronary heart disease Myocardial infarction Other No family history of adverse response to anesthesia Denies family history of Prostate cancer Breast cancer Colorectal cancer Past Surgical History Surgical History History of carotid endarterectomy w/stent lt side History of cochlear implant R side, done with [facility] [place], 06/2021 History of colonoscopy History of detached retina repair lt eye History of right hip replacement (~04/2020) History of tonsillectomy History of tooth extraction History of total knee replacement bilateral History of total shoulder replacement lt. Hx of detached retina repair lt. Past Anesthesia History No Hx of Anesthesia Complications and No Family Hx of Anesthesia Complications History of PONV No Hx of Motion Sickness and History of PONV (due to morphine ) Social History Smoking Status: Former smoker tobacco type: cigarettes Do You Dip or Chew Tobacco: No Smoking End Date: years ago Hx Alcohol Use: Yes Alcohol type: wine alcohol intake frequency: a few times a week Hx Substance Use: No substance use type: does not use Review of Systems Patient denies chest pain, shortness of breath, dyspnea on exertion, cough, wheezing, palpitations. No hx of seizures, NC, apnea/snoring. No hx of blood clots or blood transfusions Physical Exam Vital Signs VITALS BP 162/82 P 66 TEMP 97.9 SP02 95% RESP 16 Constitutional no acute distress ENMT Mouth: no TMJ clicking Thyromental Distance: > or= 3.5 Finger Breadths (3.5) Mallampati Class: III Caps to side teeth and molars Cochlear implant noted to right side Neck + limited neck extension (mild) Respiratory normal respiratory effort; no respiratory distress Auscultation: lungs clear to auscultation bilaterally; no wheezes Cardiovascular Rate/Rhythm: regular rate and regular rhythm Heart Sounds: no murmur Vessels: no carotid bruit Musculoskeletal Spine: no pain with cervical ROM Extremities: extremities normal to inspection Psychiatric Orientation: alert Lab Results Anesthesia Preop Results Results Anesthesia Widget: WBC 6.44 K/ul (4.8-10.8) 11/07/23 Hgb 11.8 g/dl (12.0-16.0) L 11/07/23 Hct 35.6 % (37.0-47.0) L 11/07/23 Plt 345 K/uL (130-400) 11/07/23 Na 139 mmol/L (136-145) 11/07/23 K 4.2 mmol/L (3.5-5.1) 11/07/23 Cl 107 mmol/L (98-107) 11/07/23 CO2 27 mmol/L (21-32) 11/07/23 BUN 21 mg/dl (6-23) 11/07/23 Creat 0.63 mg/dl (0.6-1.2) 11/07/23 Glucose Level 92 mg/dl (70-99(Fasting)) 11/07/23 PT 10.7 Seconds (9.0-12.0) 11/07/23 PTT 28 Seconds (21-31) 11/07/23 INR 1.0 (0.9-1.1) 11/07/23 HA1c 5.5 % (4.5-5.6) 11/07/23 Blood Type A Positive 11/07/23 Antibody Screen NEGATIVE 11/07/23 Testing Electrocardiogram Date: 11/07/23 Findings: + NSR @ (66bpm ) Poor R wave progression, consider anterior NC vs lead placement vs LVH When compared to EKG from March 05, 2020- vent rate has decreased by 34bpm per cardio Chest X-Ray Date: 11/07/23 Findings: + NAD FINDINGS: Left shoulder arthroplasty is incidentally noted. Lung volumes are normal. Lungs are clear. There is no pneumothorax or pleural effusion. Cardiac size is normal. Mediastinal contours are normal. There is no evidence for pulmonary edema. Echocardiogram Date: 03/09/20 EF: 60-65% LV Function: normal RWMA: + none Other Findings: + diastolic dysfunction (Grade 1); no LVH [Indication: eval for endocarditis during admission for anaplasmosis] Moderate LA dilation. Moderate to severe mitral annular calcification involving the posterior annulus. No vegetation noted, but cannot exclude given degree of mitral annular calcification. No mitral valve stenosis. No prior study available. Other Testing Carotid Doppler 04/30/2021 = no hemodynamically significant stenosis seen within the bilateral common or internal carotid arteries. Mild stenosis within the right external carotid artery. Antegrade flow in both vertebral arteries.
[2023-11-27] MEDS: LR 500ML BOLUS, THEN 15ML/HR IV SCH (06:05)
[2023-11-27] MEDS: ACETAMINOPHEN 500 MG TAB PO SCH ×2 (06:08→14:17)
[2023-11-27] MEDS: FAMOTIDINE 20 MG TAB PO SCH (06:08)
[2023-11-27] MEDS: GABAPENTIN 300 MG CAP PO SCH (06:08)
[2023-11-27] MEDS: dexAMETHasone**PF** 10 MG/ML VIAL IV SCH (06:09)
[2023-11-27] MEDS: LR 60ML/HR IV SCH (06:09)
[2023-11-27] MEDS ORDERED: BUPIVACAINE 0.5 % 5 MG/1 ML PF 10ML VIAL ONE (06:19)
[2023-11-27] MEDS ORDERED: ATROPINE SULFATE 0.1 MG/ML 10ML SYR IV PRN (06:30)
[2023-11-27] MEDS ORDERED: ePHEDrine sulfate 50 MG/ML AMP IV PRN (06:30)
[2023-11-27] MEDS ORDERED: ONDANSETRON INJ 2 MG/ML 2 ML VIAL IV PRN (06:30)
[2023-11-27] MEDS ORDERED: fentaNYL citrate PF 100 MCG/2 ML VIAL IV PRN (06:30)
--- NOTE | 2023-11-27 06:36 | History & Physical Bridge Note ---
Date of Service November 27, 2023 History & Physical Bridge Note I have examined the patient, reviewed the History & Physical and in the interval since the performance of the History & Physical I have noted the following changes of clinical significance: no changes noted
[2023-11-27] MEDS ORDERED: MIDAZOLAM HCL 1 MG/ML 2ML VIAL ONE (06:43)
[2023-11-27] MEDS: TRANEXAMIC ACID 1,000 MG **IV Pre-op IV SCH (06:45)
[2023-11-27] MEDS: ceFAZolin 2000MG 2,000 MG/15 ML SYR IV SCH ×2 (07:10→14:17)
[2023-11-27] MEDS ORDERED: ePHEDrine sulfate 50 MG/5 ML SYR ONE (07:23)
[2023-11-27] MEDS ORDERED: PROPOFOL IV EMULSION 10 MG/ML 20 ML VIAL IV ONE (07:23)
[2023-11-27] MEDS ORDERED: PHENYLEPHRINE 100MCG/ML 10ML SYR IV ONE (07:23)
[2023-11-27] MEDS: ORTHO JOINT ANESTHETIC ONE (07:40)
[2023-11-27] MEDS: TRANEXAMIC ACID 1,000 MG **IV Intra-op IV SCH (08:06)
[2023-11-27] MEDS: ROPIV 0.5% 246mg, Ketorolac 30mg, EPINEPHrine 0.5mg in NSS INFIL SCH (08:07)
--- NOTE | 2023-11-27 08:13 | Operative Report ---
PG Post Operative Report Pre & Post Diagnosis Operation Date: 11/27/23 07:00 Pre-Op Diagnosis: Osteoarthritis Left hip Post-Op Diagnosis: Osteoarthritis Left hip I identified the patient and participated in the time-out.: Yes Procedure Operation Date: 11/27/23 07:00 Actual Procedures p Left Anterior Total Hip Arthroplasty(Left) - Jorge Lucero DO Surgeon Jorge Lucero DO [employer] T[employer] Jorge Lopes PA-C Estimated Blood Loss 250 Findings Consistent with Post-Op Diagnosis Specimens Left femoral head Description of Procedure Implants used I used a ZimmerBiomet total hip arthroplasty system with a size 4 standard Avenir Complete stem, a 50 mm G7 cup with a 25mm screw, an E1 polyethylene liner, a 36 mm ceramic head with a +3.5 neck. Teena arrived at the hospital for the above procedure. She was seen in the preoperative holding area and the operative extremity was identified and signed. She was given a spinal anesthetic, a preoperative antibiotic, and TXA. She was then taken back to the operating room and laid on the table in the supine position. She was given basic sedation. The operative leg was secured to a Puristst leg positioner. The hip was then prepped and draped in sterile fashion. A timeout was done and the patient and the operative extremity was properly identified. An anterior approach was used. Dissection was taken down through the fascia and the tensor muscle belly was retracted laterally and the rectus was retracted medially. The circumflex vessels were identified and ligated. The capsule was then incised and tagged for later repair. The femoral neck was then cut and the femoral head was removed. The acetabulum was exposed. Time was spent doing a complete circumferential labral release. Sequential reaming of the acetabulum up to a size 4950 reamer was done. Final reamings were done under fluoroscopy to ensure appropriate version. A Biomet mm G7 cup was then impacted into place. A single 25 mm screw was placed. The E1 polyethylene liner was then snapped into place. Surrounding soft tissues were then injected with 100 cc of an orthopedic pain control cocktail. The proximal femur was then exposed. Sequential broaching up to a size 4 broach was done. Off that broach a size 36 head with a +3.5 neck was trialed. The hip was reduced and fluoroscopic images showed anatomic alignment of the implants in acceptable length. The broach was removed. The final size 4 standard offset Avenir Complete stem was then impacted into place. A ceramic 36 mm head with a +3.5 neck was then impacted onto the stem and the hip was reduced. Final fluoroscopic images showed anatomic alignment of the hip. The capsule was then closed with #1 Vicryl suture. A dilute betadyne lavage was then done for 3 minutes. The joint was then irrigated with normal saline solution. The fascia was closed with #1 PDS suture. Skin was closed with 2-0 Vicryl, clare, and a Silverlon dressing. She was then transferred to a hospital bed and taken to the post anesthesia care unit in stable condition. She tolerated the procedure well. Jorge Lopes PA-C, was present for the entire procedure. He was critical for patient positioning, prepping, draping, retraction exposure, wound closure and application of sterile dressing. I attest to the content of the Intraoperative Record and any orders documented therein. Any exceptions are noted below.
--- NOTE | 2023-11-27 08:23 | Fluoroscopy Report ---
FL hip LT 1V CLINICAL HISTORY: LEFT ANTERIOR EVANGELIST COMPARISON STUDY: Left hip radiographs November 08, 2023. FLUOROSCOPY TIME: 21 seconds. Ka, r: 2.1244 mGy FLUOROSCOPIC IMAGES: 1 FINDINGS: Fluoroscopy was provided during anterior total left hip arthroplasty. Hardware is intact. T here is an acetabular screw. No fractures are identified. There are no radiopaque foreign bodies by f luoroscopy. IMPRESSION: Fluoroscopy provided during anterior total left hip arthroplasty. ACT 112: Negative or not required by law. Electronically signed by: Bradley Reddy M.D. 11/27/2023 8:21 AM
--- NOTE | 2023-11-27 09:32 | XRay Report ---
SINGLE VIEW PELVIS; SINGLE VIEW LEFT HIP CLINICAL HISTORY: Postoperative examination. FINDINGS: An AP portable view of the hips and lower pelvis with a crosstable lateral portable view of the bladder hip are compared to study dated 11/08/2023. A bipolar left hip arthroplasty is in near-tyler tomic alignment. A single cortical lag screw transfixes the acetabular cup. No acute fracture is iden tified. There are expected postoperative changes overlying the left hip including skin clips, subcuta neous gas, and soft tissue swelling. A right hip arthroplasty is unchanged in position. There is adva nced atherosclerotic calcification of the femoral arteries. Phleboliths are seen in the pelvis. IMPRESSION: Expected postoperative findings status post left hip arthroplasty. No acute fracture is s een. ACT 112: Negative or not required by law. Electronically signed by: Rodger Clark M.D. 11/27/2023 9:31 AM
[2023-11-27] MEDS ORDERED: oxyCODONE HCL IR 5 MG TAB (IMMEDIATE RELEASE) PO PRN (10:05)
[2023-11-27] MEDS ORDERED: NALOXONE HCL 0.4 MG/1 ML VIAL/CARP IV PRN (10:05)
[2023-11-27] MEDS ORDERED: bisacodyL 10 MG SUPP PR PRN (10:05)
[2023-11-27] MEDS ORDERED: MAGNESIUM HYDROXIDE SUSP 30 ML UDC PO PRN (10:05)
[2023-11-27] MEDS ORDERED: METOCLOPRAMIDE HCL INJ 5 MG/ML 2 ML VIAL IV PRN (10:05)
--- NOTE | 2023-11-27 10:24 | Anesthesiology Progress Note ---
Date of Service November 27, 2023 Anesthesia Post Procedure Vital Signs Vital Signs: Temp Pulse Resp BP BP Pulse Ox O2 Del Method 11/27/23 10:00 97.3 F L 79 16 154/90 H 94 Room Air 11/27/23 09:40 97.3 F L 71 18 113/77 95 Room Air 11/27/23 09:25 69 21 121/69 94 Room Air 11/27/23 09:10 67 14 115/71 94 Room Air 11/27/23 09:00 65 14 108/77 95 Room Air 11/27/23 08:50 65 15 116/73 96 Oxymask 11/27/23 08:40 67 18 117/81 99 Oxymask 11/27/23 08:34 97.3 F L 68 13 122/78 98 Oxymask 11/27/23 05:53 97.7 F 76 20 156/87 H 182/88 H 96 Room Air O2 Flow Rate 11/27/23 10:00 11/27/23 09:40 0 11/27/23 09:25 0 11/27/23 09:10 0 11/27/23 09:00 0 11/27/23 08:50 2 11/27/23 08:40 4 11/27/23 08:34 6 11/27/23 05:53 Transfer of Care Handoff Completed per policy Notes Mental Status: alert / awake / arousable and participated in evaluation Patient Amnestic to Procedure: Yes Nausea / Vomiting: adequately controlled Pain: adequately controlled Airway Patency, RR, SpO2: stable & adequate BP & HR: stable & adequate Hydration State: stable & adequate Neuraxial Anesthesia: was administered and sensory block is resolving Anesthetic Complications: no major complications apparent and Pt Satisfied with anesthetic care
[2023-11-27] MEDS: SODIUM CHLORIDE 0.9% 1,000 ML IV SCH (10:39)
[2023-11-27] MEDS: DORZOLAMIDE/TIMOLOL 22.3/6.8MG/ML 10 ML BTL OP SCH (10:41)
[2023-11-27] MEDS: DOCUSATE SODIUM 100 MG CAP PO SCH (10:41)
[2023-11-27] MEDS: EZETIMIBE 10 MG TAB PO SCH (10:41)
[2023-11-27] MEDS: MULTIVITAMIN TAB PO SCH (10:41)
[2023-11-27] MEDS: PANTOprazole 40 MG TAB PO SCH (10:41)
[2023-11-27] MEDS: ASPIRIN 81 MG ECTAB PO SCH (10:41)
[2023-11-27] MEDS: SIMVASTATIN 80 MG TAB PO SCH (20:34)
[2023-11-27] MEDS: SENNA 8.6 MG TAB PO SCH (20:35)
[2023-11-27] MEDS: HYDROmorphone INJ 0.5 MG/0.5 ML SYR IV PRN (20:41)
[2023-11-27] MEDS: ONDANSETRON INJ 2 MG/ML 2 ML VIAL IV PRN (20:42)
--- NOTE | 2023-11-28 06:42 | Orthopedic Progress Note ---
Date of Service November 28, 2023 Assessment & Plan (1) Status post left hip replacement: Overall she is doing very well. She is not having much pain in the left hip. She will be seen by physical therapy today for ambulation and range of motion exercises. She is on aspirin for DVT prophylaxis. She can be discharged home later today. She will follow-up with orthopedics in 2 weeks. Carol Dickinson was seen and examined at bedside this morning. Overall she is doing well. She is not having much pain in the left hip. She has been up and ambulating to the bathroom. She has no complaints.. Review of Systems All systems reviewed & are unremarkable except as noted in HPI & below. Physical Exam On physical examination left hip, the dressing is clean and dry. Her leg is out in full extension. She has active dorsiflexion plantarflexion of her left ankle.. Results & Data Results & Data Laboratory Results . Diagnostic Findings Postoperative x-rays of the left hip show the prosthesis to be in anatomic alignment without any evidence of fracture, dyscrasia, or loosening.. PG Care Time/CCT Total # of Minutes Spent Total Time Spent with Patient: Total time spent is greater than 50% in coordination of care (as documented) at patient's floor/unit and/or counseling patient: Coding Level of Care Code 80674 Post Operative Follow-Up Diagnoses Status post left hip replacement Z96.642
--- NOTE | 2023-11-28 06:43 | Discharge Summary ---
Date of Service November 28, 2023 Principal Diagnosis Same as "Discharge Diagnosis" noted below under Discharge Instructions. Discharge Exam On physical examination left hip, the dressing is clean and dry. Her leg is out in full extension. She has active dorsiflexion plantarflexion of her left ankle.. Discharge Data Procedures Performed Operation Date: 11/27/23 07:00 Actual Procedures p Left Anterior Total Hip Arthroplasty(Left) - Jorge Lucero DO Ordered Studies 11/27/23 FL hip LT 1V Routine Hospital Course (1) Status post left hip replacement: On November 27, 2023 Teena arrived at [facility] and underwent a left hip replacement without complication. She had a spinal anesthetic. Postoperatively she was started on aspirin for DVT prophylaxis and transferred to the general orthopedic floors. Her hospital course was uneventful. On postop day #1, her vital signs were stable and her pain was well-controlled. She was able to participate well with physical therapy doing ambulation and range of motion exercises. She was then discharged home. She will follow-up orthopedics in 2 weeks. PG Care Time/CCT Total # of Minutes Spent Total Time Spent with Patient: Total time spent is greater than 50% in coordination of care (as documented) at patient's floor/unit and/or counseling patient: Discharge Plan Discharge Items Patient Disposition: Home - Self-Care Reason For Visit: DJD Left Hip Discharge Diagnosis: Left hip replacement Activity: Per Instructions section Non-emergency contact: Surgeon Call non-emergency contact if: your wound has increased redness and your wound has increased drainage Follow-up/Referrals: Trevin Hernandez DO [Primary Care Provider] - Diet: Regular Addtl Attending Provider Instructions: Activity and Therapy Recommendations: * If you are using [facility] then therapy will be provided at your home until they feel you have accomplished all of your goals. * If you are using [facility] then Physical Therapy will be provided until they feel you are ready to start Outpatient Physical Therapy. * If you are not using home therapy then Outpatient Physical Therapy should start about 3-5 days from your day of surgery. Therapy will last about 6-10 weeks * It is important not to put a pillow under your knee when you are relaxing or sleeping. It is just as important to make sure you are getting your knee perfectly straight as it is to regain your knee bend. * You were shown a series of exercises in the hospital. Do these exercises three times each day including the exercises you were shown in physical therapy. * Get up and walk several times each day. For the first four weeks, try not to stand or walk for more than one hour at a time. If you do stand or walk for more than one hour, you will not hurt anything, but your leg will likely swell. * As you feel comfortable, you may change from the walker or crutches to a cane and then to independent walking. Medications: * Narcotic You will likely be sent home from the hospital with a prescription for the narcotic pain medication that worked best throughout your stay. * Cefadroxil -take the antibiotic twice a day for 10 days to help prevent infection. * Aspirin Most patients will be required to take Aspirin 81mg twice a day for 6 weeks after surgery. This is obtained [id number] and a prescription is not necessary. * Other medications may be prescribed for specific circumstances. If you have any questions, please call the office at . * Resume previous home medications unless otherwise instructed TEDs/Elastic Stockings: The white elastic stockings help limit swelling and prevent blood clots from forming in your legs.~ The more you wear them, the more they work. Wear them for six weeks. Dressing Care: The dressing can be changed after physical therapy on postop day #1. Daily dry dressing changes for a few days, especially if the incision is still draining some. If the incision is not draining then you may leave the calre open to air. If there is a little bit of drainage or if the clare are getting stuck on your clothing then cover the incision with a dry dressing. The clare will be removed at your 2 week follow-up appointment. Showering: You may shower 5 days from the day of surgery as long as the incision is no longer draining. You may shower with the clare exposed. Let soapy water run over the clare and pat them dry. Do not scrub or soak the incision. Things To Watch For: * Drainage from the incision site that occurs more than one week after your surgery. * Increased redness at the incision site. * Fever above 102 degrees Fahrenheit. * Unusual chest pain or shortness of breath. * Call [facility] at with any of the above problems Follow-Up Visit: Follow-up with Dr. Lucero's PA (Jorge Lopes) 2-3 weeks after your day of surgery. He will remove your clare and answer any questions. If you have any additional questions or concerns, Dr Lucero is usually in the office at the same time and will be available An appointment was probably scheduled when you signed-up for surgery in the office. If you have any questions call Office Instructions: More detailed instructions as well as Frequently Asked Questions were provided in a folder by our office when you signed-up for surgery. Please review these instructions when you get home. If you have any further questions or concerns, please feel free to call the office at [phone] Pending Studies at Discharge: No Stand-Alone Forms: My [facility] [employer], Smoking Cessation Medications and DC Order Prescriptions: New cefadroxil 500 mg capsule 500 mg PO BID 10 Days Qty: 20 0RF cefadroxil 500 mg capsule 500 mg PO BID 10 Days Qty: 20 0RF aspirin [Adult Aspirin Regimen] 81 mg tablet,delayed release (DR/EC) 81 mg PO BID Qty: 84 0RF hydrocodone-acetaminophen 5-325 mg tablet 1 tab PO Q6H PRN (Reason: pain) Qty: 30 0RF Continued ezetimibe [Zetia] 10 mg tablet 10 mg PO QAM Qty: 90 3RF simvastatin 80 mg tablet 80 mg PO HS Qty: 90 3RF dorzolamide-timolol (PF) 2-0.5 % Drops 1 drp OPHTHALMIC (EYE) BID cholecalciferol (vitamin D3) [Vitamin D3] 25 mcg (1,000 unit) Tablet 25 mcg PO HS calcium 600 mg Capsule 600 mg PO BID vit A-vit C-vit [id number] Tablet 2 tab PO BID pantoprazole 40 mg tablet,delayed release (DR/EC) 40 mg PO QAM Rx Instructions: TAKE ONE TABLET BY MOUTH DAILY fluocinolone acetonide oil 0.01 % drops 5 drp otic (ear) Q7D PRN (Reason: itching) mesalamine [Lialda] 1.2 gram tablet,delayed release (DR/EC) 2.4 g PO BID hydrocodone-acetaminophen 5-325 mg tablet 1 tab PO Q6H PRN (Reason: pain) Qty: 30 0RF Changed aspirin 81 mg tablet,delayed release (DR/EC) 81 mg PO BID 42 Days Qty: 0 0RF Patient Comments: per pt. taking once daily Discharge Orders: Discharge Order (Routine); Ordered 11/28/23 Ordered By: Jorge Lucero Admission Data Admit Date/Time: 11/27/23 08:38 Attending Provider: Jorge Lucero Admit Provider: Jorge Lucero Primary Care Provider: Trevin Hernandez
[2023-11-28] MEDS: dexAMETHasone 4 MG TAB PO SCH (08:09)
== END 2023-11-28 10:35 | disposition home or self-care (01) ==
LOC: 3E 05:09 → ASU 05:09

== ENCOUNTER 2023-12-13 11:37 | Inpatient (IN) ==
[2023-12-13 12:40] LABS: Hemoglobin 9.1 g/dl (12.0-16.0); Mean Corpuscular Hemoglobin 30.6 pg (25.0-34.0); Mean Corpuscular Hgb Conc 31.4 g/dL (32.0-36.0); Mean Corpuscular Volume 97.6 fL (80.0-100.0); Mean Platelet Volume 9.6 fL (9.4-12.4); Platelet Count 610 K/uL (130-400); RDW Coefficient of Variation 15.4 % (11.5-14.5); RDW Standard Deviation 53.8 fL (36.4-46.3); Red Blood Count 2.97 M/uL (4.20-5.40); White Blood Count 9.27 K/ul (4.8-10.8)
[2023-12-13 12:51] LABS: Albumin Globulin Ratio 1.2 (0.9-2); Albumin Level 3.6 gm/dl (3.4-5.0); BUN Creatinine Ratio 32.4 (10-20); Bilirubin,Total 0.4 mg/dl (0.2-1.0); Calcium 8.4 mg/dl (8.6-10.3); Creatinine Clr Calc Pharmacy 58.5 ml/min; Est GFR (African American) 91.9 ml/min; Est GFR (Non-African American) 79.3 ml/min; Potassium 4.2 mmol/L (3.5-5.1); Total Protein 6.6 gm/dl (6.0-8.3)
[2023-12-13 12:55] LABS: Troponin I High Sensitivity 8.2 pg/ml (0-14)
[2023-12-13 13:02] LABS: INR 1.1 (0.9-1.1); Partial Thromboplastin Ratio 1.2; Partial Thromboplastin Time 34 Seconds (21-31); Prothrombin Time 11.8 Seconds (9.0-12.0)
--- NOTE | 2023-12-13 13:38 | Emergency Department Note ---
Impression & Plan Acute GI bleeding, Anemia, Black stool, Coagulopathy ED Provider Note NAME: BIRGIT VANESSA AGE: 83 SEX: F : 1940 ARRIVES VIA: Walk-In INFORMANT: [Patient] ED PROVIDER(S): [Rodger Ray MD] CHIEF COMPLAINT: GI bleeding HISTORY OF PRESENT ILLNESS: The patient is an 83-year-old female who was diagnosed with a superficial clot in the right leg 5 days ago. She was started on Eliquis. The clot was not large enough to warrant anticoagulation. The patient states that for 2 days now, she has noticed black stool. She has been at times a bit dizzy. No shortness of breath or chest pain. No nausea or vomiting, no abdominal pain. The patient spoke with her doctors office today, she was referred to the ER. Of note, the patient does also take aspirin on a regular basis. She carries a history of ulcerative colitis but has never had any upper GI bleeding PMHx/PSHx/Social Hx: See Below PHYSICAL EXAM: GENERAL: Patient is in no acute distress. HEENT: No acute trauma, normocephalic atraumatic, mucous membranes moist, no nasal congestion. NECK: No stridor, no adenopathy, no meningismus, trachea is midline. LUNGS: Clear to auscultation bilaterally, no wheeze, no rhonchi, breath sounds equal. HEART: Without murmurs gallops or rubs, regular rate and rhythm. ABDOMEN: Soft, nontender, no peritonitis. EXTREMITIES: No cyanosis, full range of motion of all the joints without pain or difficulty. NEUROLOGIC: Oriented x 3, no acute motor or sensory deficits, no focal weakness. SKIN: No jaundice, no diaphoresis. Rectal: Deferred as the patient was in the ED triage area at the time of my exam. DIFFERENTIAL DIAGNOSIS: Ulcer, upper GI bleeding, lower GI bleeding, coagulopathy, anemia, among others. EMERGENCY DEPARTMENT PROCEDURES: MEDICAL DECISION MAKING: There is no leukocytosis. The patient was anemic with a hemoglobin of around 9, this was over a 2 point drop for her and would be consistent with GI bleeding. The platelet count was elevated at 610. INR and PTT were essentially unremarkable. There is no electrolyte abnormality in need of emergent correction. No renal failure. No concerning liver enzyme elevation. ECG showed a sinus rhythm, no obvious acute ischemia. Cardiac enzyme testing x 1 is not consistent with acute cardiac injury. On exam, the patient was not toxic or febrile. She was not hypotensive. The patient presents with black stool. She was just recently started on Eliquis. She has complained of some dizziness and does appear to be newly anemic today. The patient will require a hospital stay. She appears to be suffering from an upper GI bleed. She will need a GI consult. The patient was given IV Pepcid, IV Protonix. I did speak with the patient and her family. She is aware of the need for a hospital stay and further GI workup. I did speak with case management, the on-call hospitalist was consulted. Prior/Outside records/notes reviewed: Previous ED note from 12/08/2023 discussing her superficial lower extremity clot and the need for anticoagulation. ECG per my interpretation: Indication was GI bleeding. The ECG shows a normal sinus rhythm with a rate of 83. There is an old septal infarct. There is no acute ST elevation, no PVCs. The QTc is 423. Continuous Cardiac Monitoring per my interpretation: An order was placed for continuous cardiac monitoring. The monitor shows a rate of 88 with normal sinus rhythm. Chronic Medical/Social conditions affecting care: Advanced age, anticoagulation therapy Care/Management discussed with: Case management, the on-call hospitalist. Level of care consideration(s): After review of the information above and other included data: --I believe the patient requires escalation of care to admission DISPOSITION: Admission Past Med/Surg History Medical History Right leg pain Edema of right lower extremity History of COVID-19 11/2022, home test, not hosp; cough, runny nose, fatigue>resolved Ulcerative colitis - during last colonoscopy 2022, dr. 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 History of tooth extraction History of cochlear implant R side, done with [facility], 06/2021 History of right hip replacement (~04/2020) History of carotid endarterectomy w/stent lt side History of total shoulder replacement lt. History of total knee replacement bilateral History of colonoscopy History of detached retina repair lt eye History of tonsillectomy Family History Mother Ovarian cancer Fallopian tube carcinoma Father Coronary heart disease Myocardial infarction Other No family history of adverse response to anesthesia Denies family history of Prostate cancer Breast cancer Colorectal cancer Social History Smoking Status: Former smoker Tobacco Type: Cigarettes Age Started Using Tobacco: 19; Age Quit Using Tobacco: 70; packs per day: 0.5; Second Hand Exposure: No; Do You Dip or Chew Tobacco: No; Hx Alcohol Use: Yes Alcohol type: wine Alcohol Intake Frequency: 4 or More x per/Week Alcohol Intake Frequency Comment: 1 per day Hx Substance Use: No Preferred Language: Namibian Communication Ability: Effective Communication Ability Comment: BILAT HEARING AIDES-[place] Visual Impairment: Limited Hearing Ability: Use of Hearing Aid Mold Technician Required: No Beliefs That Will Affect Care: None marital status: Current Living Situation: Spouse current occupational status: retired current occupation: retired from career as physical therapist Feels Safe at Home: Yes Childhood Exposure to Second-Hand Smoke: No Diet: low carbohydrate and regular Diet Comment: Lives with a diabetic, eats a healthy diet caffeine: Yes (One cup of coffee daily ) Dental Care, Regularly: Yes Physical Activity Frequency: Daily Physical Activity Frequency Comment: intermittent exercises, walking for approx 30-45min Seatbelt Use: always Sunscreen Use: No Assistive Devices: Walker Allergies Allergies Allergy/AdvReac Type Severity Reaction Status Date / Time levothyroxine AdvReac Intermediate Hives Verified 12/08/23 13:30 morphine AdvReac Mild NAUSEA Verified 12/08/23 13:30 VOMITING Home Meds Home Medications Medication Instructions Recorded Confirmed cholecalciferol (vitamin D3) 25 25 mcg PO HS 02/28/22 03/13/24 mcg (1,000 unit) tablet (Vitamin D3) dorzolamide 2 %-timolol 0.5 % (PF) 1 drp ophthalmic (eye) BID 11/29/21 12/13/23 eye drops calcium 600 mg capsule 600 mg PO BID 12/08/22 12/13/23 vit A 7,160 unit-vit C 113 mg-vit 2 tab PO BID 12/08/22 12/13/23 E 100 [id number] tablet fluocinolone acetonide oil 0.01 % 5 drp otic (ear) Q7D PRN itching 11/06/23 12/13/23 ear drops pantoprazole 40 mg tablet,delayed 40 mg PO QAM 11/06/23 12/13/23 release mesalamine 1.2 gram tablet,delayed 2.4 g PO BID 11/27/23 12/13/23 release (Lialda) Previous Rx's Medication Instructions Recorded ezetimibe 10 mg tablet (Zetia) 10 mg PO QAM #90 tabs 03/27/23 simvastatin 80 mg tablet 80 mg PO HS #90 tabs 04/19/23 aspirin 81 mg tablet,delayed 81 mg PO BID 42 days #0 tabs 11/28/23 release hydrocodone 5 mg-acetaminophen 325 1 tab PO Q6H PRN pain #30 tabs 11/28/23 mg tablet apixaban 5 mg tablet (Eliquis) See Rx Instructions .Route 12/08/23 .COMPLEX #74 tabs Results & Data (ED) Vital Signs Vital Signs - 24 hr 12/13/23 11:54 Temperature 36.8 C Temperature Source Temporal Artery Scan Pulse Rate 94 H Respiratory Rate 20 Respiratory Effort / Characteristics Non-Labored Spontaneous Respiratory Depth Normal Blood Pressure 156/79 H Blood Pressure Mean 104 Blood Pressure Position Sitting Pulse Oximetry 95 Oxygen Delivery Method Room Air Sepsis Recent Fever Within 48 Hours No Sepsis New/Unexplained Change in Mental Status No Sepsis Action Taken by Nursing No Action Required Home Medications Current Medication List: was personally reviewed by me Laboratory Data Attestation: I reviewed the patient's lab results. 12/13/23 15:48 12/13/23 12:05 Lab Results 12/13/23 12/13/23 Range/Units 12:05 12:43 WBC 9.27 (4.8-10.8) K/ul RBC 2.97 L (4.20-5.40) M/uL Hgb 9.1 L (12.0-16.0) g/dl Hct 29.0 L (37.0-47.0) % MCV 97.6 (80.0-100.0) fL MCH 30.6 (25.0-34.0) pg MCHC 31.4 L (32.0-36.0) g/dL RDW Std Deviation 53.8 H (36.4-46.3) fL RDW Coeff of Jake 15.4 H (11.5-14.5) % Plt Count 610 H (130-400) K/uL MPV 9.6 (9.4-12.4) fL PT 11.8 (9.0-12.0) Seconds INR 1.1 (0.9-1.1) APTT 34 H (21-31) Seconds PTT Ratio 1.2 Sodium 140 (136-145) mmol/L Potassium 4.2 (3.5-5.1) mmol/L Chloride 108 H (98-107) mmol/L Carbon Dioxide 27 (21-32) mmol/L Anion Gap 5 (3-11) BUN 23 (6-23) mg/dl Creatinine 0.71 (0.6-1.2) mg/dl Est Cr Clr Drug Dosing 58.5 ml/min Est GFR ( Amer) 91.9 ml/min Est GFR (Non-Af Amer) 79.3 ml/min BUN/Creatinine Ratio 32.4 H (10-20) Glucose 102 H (70-99(Fasting)) mg/dl Calcium 8.4 L (8.6-10.3) mg/dl Magnesium 2.2 (1.7-2.4) mg/dl Total Bilirubin 0.4 (0.2-1.0) mg/dl AST 17 (13-39) U/L ALT 10 (7-52) U/L Alkaline Phosphatase 76 (34-104) U/L Troponin I High Sens 8.2 (0-14) pg/ml Total Protein 6.6 (6.0-8.3) gm/dl Albumin 3.6 (3.4-5.0) gm/dl Globulin 3.0 (2.5-4.0) gm/dl Albumin/Globulin Ratio 1.2 (0.9-2) Blood Type A Positive Antibody Screen NEGATIVE Administered Medications Lactated Ringer's (Lr) 1,000 mls @ 80 mls/hr IV .[id number] ANKITA Stop: 12/15/23 04:14 Last Admin: 12/13/23 15:07 Dose: 80 mls/hr Documented By: GIBSON Discontinued Medications Famotidine (Pepcid 20mg Iv Push) 20 mg in 5 mls @ 2.5 mls/min IV NOW STA Stop: 12/13/23 13:27 Last Admin: 12/13/23 13:49 Dose: 2.5 mls/min Documented By: EVA Pantoprazole Sodium 80 mg/ (Dextrose) 120 mls @ 400 mls/hr IV NOW ONE Stop: 12/13/23 13:43 Last Infusion: 12/13/23 14:34 Dose: Infused Documented By: Admin: 12/13/23 14:12 Dose: 400 mls/hr Documented By: GIBSON Discharge Plan Visit Data Chief Complaint: GI Bleed Stated Complaint: DOC REF,BLACK STOOL,HERE MONDAY,POSS GI BLEED ED Provider: Rodger Ray Discharge Problem: Acute GI bleeding, Anemia, Black stool, Coagulopathy Patient Disposition: Admitted As Inpatient Condition: Fair Discharge Instructions Interventions: ED Discharge Assessment Last Done: 12/13/23 17:25 Discharge Problem: Anemia Qualifiers: Anemia type: unspecified type Qualified Code(s): D64.9 - Anemia, unspecified
[2023-12-13] MEDS: FAMOTIDINE 20MG IV PUSH 20 MG/5 ML SYR IV STA (13:49)
--- NOTE | 2023-12-13 13:51 | History & Physical Report ---
Date of Service December 13, 2023 Assessment & Plan (1) Upper GI bleed: Plan: Dark tarry stools starting on 12/11 Patient was at the ED on Thursday 12/07 for a superficial right upper leg blood clot; started on Eliquis Repeat venous Doppler study of the right upper leg ordered, pending Of note, patient has also been taking aspirin 81 mg twice daily (rather than once daily) since her left hip replacement on 11/27 Hemoglobin 9.1 on arrival Trend H&H q4h Strict n.p.o. and bowel rest; hold all p.o. medications for now IVF resuscitation with LR at 80mL/hr x 3 Pantoprazole 40 mg IV twice daily Famotidine 20 mg IV twice daily Acetaminophen 1000 mg IV q8h as needed for left hip pain No hx of blood transfusions Blood informed consent obtained; 2u pRBCs ordered, held if needed Hold aspirin and Eliquis; SCDs for DVT PPx Gastroenterology consulted A.m. CBC, BMP (2) Ulcerative proctosigmoiditis: Plan: Patient denies any recent BRB in rectum On mesalamine; will hold temporarily (3) Carotid artery stenosis: Plan: S/p left CEA in 2003 Patient notes that she does have a stent, but given it is not recent, we will plan to hold aspirin at this time (4) History of left hip replacement: Plan: On 11/[address] Lucero Pain control with acetaminophen (as above) (5) Removal of clare: Plan: Patient was scheduled to have her clare removed from her hip surgery today Surgery site without signs of erythema, drainage or infection 21 clare removed in the ED, and wound was dressed following procedure Plan Disposition: Admit to [facility] telemetry Full code Keep strict n.p.o. for now VTE PPx: SCDs (hold all chemical DVT PPx in the setting of acute upper GI bleed) History of Present Illness Chief Complaint: GI bleed Primary Care Provider: DO Courtney Burgos is an 83-year-old female with PMH of rectal bleeding, internal hemorrhoids, chronic diarrhea, ulcerative proctosigmoiditis, GERD, OA, TIA, and anaplasmosis. She presented for 3 episodes of dark tarry stools x 2 days. Of note, the patient was at the ED on Anotine 3/8 for a superficial blood clot in the right upper leg; after talking with the anticoagulation clinic at that time, it was determined the patient should be started on Eliquis 20 mg daily, and then transition to Eliquis 5 mg twice daily (which patient has not started yet). The patient's dark tarry stool developed approximately 3 days later. No abdominal pain. She denies a history of upper GI bleeds or gastric ulcers, but notes she does have ulcerative colitis and has had BRB in rectum 2 years ago (currently well-controlled on mesalamine). Her last colonoscopy was in November 2022, and she was set to have a follow-up appointment with GI in January 2024. She also notes that she had a left hip replacement on November [address] Lucero, and that she has been taking 2 baby aspirin daily (rather than 1). She denies NSAID use for pain control, or recent Pepto-Bismol use. She denies any history of liver or esophageal issues. She does note that she drinks wine; 1 glass daily. No smoking or tobacco use. Ambulates with a walker at baseline. No recent falls, or trauma to the abdomen/pelvis. Patient reports that she took all of her regular morning medications today, including Eliquis and aspirin. The only recent change in medications have been Eliquis, the increase to 2 aspirin daily, and Vicodin for pain control following her hip replacement. Patient is hypertensive at 156/79 at time of admission; vitals otherwise stable. ED course: Pantoprazole 80 mg IV Famotidine 20 mg IV ROS: Patient endorses dark tarry stool x 2 days, and occasional chills. Patient denies fever, night sweats, headache, dizziness/lightheadedness with walking, chest pain, SOB, pleuritic CP, abdominal pain, N/V/D, blood in the urine, bright red blood in stool, urinary symptoms, burning with urination, ambulatory dysfunction, or numbness or tingling going down the legs. Allergies Allergy/AdvReac Type Severity Reaction Status Date / Time levothyroxine AdvReac Intermediate Hives Verified 12/08/23 13:30 morphine AdvReac Mild NAUSEA Verified 12/08/23 13:30 VOMITING Home Medications Medication Instructions Recorded Confirmed Type cholecalciferol (vitamin D3) 25 25 mcg PO HS 11/29/21 12/13/23 History mcg (1,000 unit) tablet (Vitamin D3) dorzolamide 2 %-timolol 0.5 % (PF) 1 drp ophthalmic (eye) BID 11/29/21 12/13/23 History eye drops calcium 600 mg capsule 600 mg PO BID 12/08/22 12/13/23 History vit A 7,160 unit-vit C 113 mg-vit 2 tab PO BID 12/08/22 12/13/23 History E 100 [id number]-[id number]-[id number] tablet ezetimibe 10 mg tablet (Zetia) 10 mg PO QAM #90 tabs 03/27/23 12/13/23 Rx simvastatin 80 mg tablet 80 mg PO HS #90 tabs 04/19/23 12/13/23 Rx fluocinolone acetonide oil 0.01 % 5 drp otic (ear) Q7D PRN itching 11/06/23 12/13/23 History ear drops pantoprazole 40 mg tablet,delayed 40 mg PO QAM 11/06/23 12/13/23 History release mesalamine 1.2 gram tablet,delayed 2.4 g PO BID 11/27/23 12/13/23 History release (Lialda) aspirin 81 mg tablet,delayed 81 mg PO BID 42 days #0 tabs 11/28/23 12/13/23 Rx release hydrocodone 5 mg-acetaminophen 325 1 tab PO Q6H PRN pain #30 tabs 11/28/23 12/13/23 Rx mg tablet apixaban 5 mg tablet (Eliquis) See Rx Instructions .Route 12/08/23 12/13/23 Rx .COMPLEX #74 tabs Past Med/Surg History Medical History Right leg pain Edema of right lower extremity History of COVID-19 11/2022, home test, not hosp; cough, runny nose, fatigue>resolved Ulcerative colitis - during last colonoscopy 2022, dr. 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 History of tooth extraction History of cochlear implant R side, done with [facility], 06/2021 History of right hip replacement (~04/2020) History of carotid endarterectomy w/stent lt side History of total shoulder replacement lt. History of total knee replacement bilateral History of colonoscopy History of detached retina repair lt eye History of tonsillectomy Family History Mother Ovarian cancer Fallopian tube carcinoma Father Coronary heart disease Myocardial infarction Other No family history of adverse response to anesthesia Denies family history of Prostate cancer Breast cancer Colorectal cancer Social History Smoking Status: Never smoker Tobacco Type: Cigarettes Age Started Using Tobacco: 19; Age Quit Using Tobacco: 70; packs per day: 0.5; Second Hand Exposure: No; Do You Dip or Chew Tobacco: No; Tobacco Cessation Education Requested by Patient: No Hx Alcohol Use: Yes Alcohol type: wine Alcohol Intake Frequency: 4 or More x per/Week Alcohol Intake Frequency Comment: 1 per day Hx Substance Use: No Preferred Language: Mohawk Communication Ability: Effective Communication Ability Comment: BILAT HEARING AIDES-[place] Visual Impairment: Limited Hearing Ability: Use of Hearing Aid Pain Medicine Physician Required: No Beliefs That Will Affect Care: None marital status: Current Living Situation: Spouse current occupational status: retired current occupation: retired from career as physical therapist Other Information That Helps Us Care for You: No Feels Safe at Home: Yes Safety Concerns: Feels Safe At This Time Childhood Exposure to Second-Hand Smoke: No Diet: low carbohydrate and regular Diet Comment: Lives with a diabetic, eats a healthy diet caffeine: Yes (One cup of coffee daily ) Dental Care, Regularly: Yes Physical Activity Frequency: Daily Physical Activity Frequency Comment: intermittent exercises, walking for approx 30-45min Seatbelt Use: always Sunscreen Use: No Assistive Devices: Glasses, Hearing Aid - Bilateral and Walker Review of Systems Review of Systems: See HPI above Physical Exam Physical Exam: General: no acute distress; anxious; pleasant affect; non-toxic appearing; well- nourished; cooperative HEENT: normocephalic, atraumatic; no scleral icterus; PERRLA; moist mucus membrane; vision intact; hard of hearing Neck: supple; no JVD; no lymphadenopathy; trachea midline Skin: warm, dry without signs of tenting; no cyanosis; no rashes, bruising, lesions, or erythema noted CV: chest wall NTP; RRR; S1/S2 normal; no murmurs/rubs/gallops; pulses intact and symmetric at radial, DP, and PT Lungs: no acute respiratory distress; symmetrical chest wall expansion; clear breath sounds across all lung roberts w/o adventitious sounds; no wheezing ABD: Soft, NTP; BS present; no rebound/guarding; no ascites; no distention; no rashes/bruises/signs of active bleeding on the abdomen or flanks MSK: no tics or fasciculations; nonpitting edema in the LEs bilaterally, nonerythematous; no erythema or swelling at the site of prior blood clot on the right upper medial thigh Neuro: A&Ox3; normal mood and affect; fluent speech; no focal deficits; sensation grossly intact in the LEs b/l Results & Data Results & Data Vital Signs (Past 12 Hours) Vital Signs Temp Pulse Resp BP Pulse Ox O2 Del Method 12/13/23 11:54 36.8 C 94 H 20 156/79 H 95 Room Air Laboratory Results Abnormal lab results 12/13/23 Range/Units 12:05 RBC 2.97 L (4.20-5.40) M/uL Hgb 9.1 L (12.0-16.0) g/dl Hct 29.0 L (37.0-47.0) % MCHC 31.4 L (32.0-36.0) g/dL RDW Std Deviation 53.8 H (36.4-46.3) fL RDW Coeff of Jake 15.4 H (11.5-14.5) % Plt Count 610 H (130-400) K/uL APTT 34 H (21-31) Seconds Chloride 108 H (98-107) mmol/L BUN/Creatinine Ratio 32.4 H (10-20) Glucose 102 H (70-99(Fasting)) mg/dl Calcium 8.4 L (8.6-10.3) mg/dl Code Status & VTE Plan Code Status Full code VTE Prophylaxis Plan VTE Prophylaxis will be ordered: Yes Supervising Physician Co-Signing Physician Notes Patient seen and examined, chart reviewed, case discussed with Forest Cho and I agree with the assessment and plan as above except as otherwise noted Labs and images reviewed 83-year-old female with a past medical history of GERD, ulcerative colitis, TIA, CAD on Eliquis and aspirin twice daily who presents with 2 days of melena and suspected upper GI bleed. Patient had been on aspirin twice daily for DVT prophylaxis after a left hip replacement, she was recently found to have superficial thrombosis and was started on Eliquis due to extensive size of the superficial clot. Suspect combination of twice daily aspirin and anticoagulant contributing to upper GI bleed, BUN is not significantly elevated hemoglobin is 9.1 from 11.8. Agree with PPI therapy continue Protonix twice daily IV. Strict NPO. IV FM. No indication for blood transfusion at this time. GI consulted. Hold aspirin and Eliquis for acute GI bleed. Patient does have a past history of left carotid stent placed in the distant past and was on aspirin monotherapy. Recommend resuming aspirin for stent protection as soon as GI bleed is stabi lized. Strict n.p.o., discussed with patient who had had some water at the bedside. Agree with assessment and management above PG Care Time/CCT Total # of Minutes Spent Total Time Spent with Patient: Total time spent is greater than 50% in coordination of care (as documented) at patient's floor/unit and/or counseling patient: [place] [address] INT INP/OBS CARE 3/75MIN Patient Type Established History Comprehensive Exam Comprehensive Medical Decision Making High Complexity Diagnoses Upper GI bleed K92.2 Ulcerative proctosigmoiditis K51.30 Carotid artery stenosis I65.29 History of left hip replacement Z96.642 Removal of clare Z48.02
[2023-12-13] MEDS: PANTOprazole 80 MG in DEXTROSE 5% 100 ML IV ONE (14:12)
[2023-12-13] MEDS ORDERED: SODIUM CHLORIDE 0.9% 250 ML IV PRN (14:41)
[2023-12-13] MEDS: LACTATED RINGER'S 1,000 ML IV SCH (15:07)
[2023-12-13 16:07] LABS: Hematocrit (blood only) 25.9 % (37.0-47.0); Hemoglobin 8.4 g/dl (12.0-16.0)
[2023-12-13] MEDS ORDERED: ONDANSETRON INJ 2 MG/ML 2 ML VIAL IV PRN (17:27)
[2023-12-13 17:57] LABS: Magnesium 2.2 mg/dl (1.7-2.4)
[2023-12-13] MEDS ORDERED: MELATONIN 3 MG TAB PO PRN (20:23)
[2023-12-13] MEDS: DORZOLAMIDE/TIMOLOL 22.3/6.8MG/ML 10 ML BTL OP SCH (20:28)
[2023-12-13] MEDS: PANTOprazole 40 MG in SYRINGE 0 ML IV SCH (20:28)
[2023-12-13] MEDS: FAMOTIDINE 20MG IV PUSH 20 MG/5 ML SYR IV SCH (20:28)
[2023-12-13] MEDS: LORazepam 0.25 MG in SYRINGE 0.125 ML IV STA (20:46)
[2023-12-13 20:59] LABS: Hematocrit (blood only) 26.9 % (37.0-47.0); Hemoglobin 8.6 g/dl (12.0-16.0)
[2023-12-14 01:20] LABS: Hematocrit (blood only) 25.9 % (37.0-47.0); Hemoglobin 8.1 g/dl (12.0-16.0)
--- NOTE | 2023-12-14 01:52 | Ultrasound Report ---
Exam(s): US VENOUS RIGHT LOWER EXTREMITY EXAM: US Duplex Right Lower Extremity Veins CLINICAL HISTORY: Reason for exam: Long segment occlusion in prior study on 12/07. TECHNIQUE: Real-time duplex ultrasound scan of the right lower extremity veins integrating B-mode two-dimensional vascular structure, Doppler spectral analysis, color flow Doppler imaging and compression. COMPARISON: 12/08/2023. FINDINGS: Deep veins: Unremarkable. No DVT in the visualized common femoral, femoral, proximal deep femoral or popliteal veins. The veins demonstrate normal color flow, are normally compressible, with normal phasic flow and/or augmentation response. Superficial veins: There is partial compressibility of the right greater saphenous vein from the mid thigh to the medial aspect of the knee, unchanged in the interval, measured over a length of 18.7 cm. No thrombus in the visualized great saphenous vein. Soft tissues: No acute findings. No popliteal cyst. IMPRESSION: 1. No ultrasonographic evidence of deep venous thrombosis involving the right lower extremity. 2. Superficial thrombosis involving the greater saphenous vein from mid thigh to the medial aspect of the knee as described, unchanged in the interval. Electronically signed by: Rosalind Vera MD 12/14/23 01:50 AM
[2023-12-14] MEDS: ACETAMINOPHEN 1,000 MG/100 ML VIAL IV PRN (04:00)
[2023-12-14] MEDS: LIDOCAINE 5% 1 PATCH TD STA (04:33)
[2023-12-14 06:02] LABS: Basophils # (auto) 0.09 K/uL (0.00-0.20); Basophils % (auto) 1.2 %; Eosinophils # (auto) 0.18 K/uL (0.00-0.50); Eosinophils % (auto) 2.4 %; Hematocrit (blood only) 22.4 % (37.0-47.0); Hemoglobin 7.4 g/dl (12.0-16.0); Immature Granulocytes # (auto) 0.03 K/uL (0.01-0.20); Immature Granulocytes % (auto) 0.4 %; Lymphocytes # (auto) 1.34 K/uL (1.20-3.40); Lymphocytes % (auto) 18.2 %; Mean Corpuscular Hemoglobin 30.8 pg (25.0-34.0); Mean Corpuscular Volume 93.3 fL (80.0-100.0); Mean Platelet Volume 9.6 fL (9.4-12.4); Monocytes # (auto) 0.81 K/uL (0.11-0.59); Neutrophils % (auto) 66.8 %; Platelet Count 537 K/uL (130-400); RDW Standard Deviation 50.8 fL (36.4-46.3); White Blood Count 7.35 K/ul (4.8-10.8)
[2023-12-14 06:11] LABS: BUN Creatinine Ratio 24.6 (10-20); Calcium 8.3 mg/dl (8.6-10.3); Creatinine Clr Calc Pharmacy 68.1 ml/min; Est GFR (African American) 97.8 ml/min; Est GFR (Non-African American) 84.4 ml/min; Potassium 4.2 mmol/L (3.5-5.1)
[2023-12-14 06:27] LABS: Polychromasia 1+
[2023-12-14] MEDS: DICLOFENAC SOD 1% GEL 100 GM TUBE EXT SCH (07:59)
--- NOTE | 2023-12-14 10:59 | Gastrointestinal Consultation ---
Date of Consultation December 14, 2023 Assessment & Plan (1) Black stool: (2) Acute blood loss anemia: Plan Patient is a 83 y.o. 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 Lucero on 11/27/23 admitted with melena and acute blood loss anemia. -NPO. -EGD by Dr. Weinberg today for further evaluation. -Continue Pantoprazole 40 mg and Famotidine 20 mg IV BID. -Continue supportive care. -Further recommendations will be made pending results of testing. Thank you for allowing us to participate in the care of this patient. If you have any questions or concerns, please do not hesitate to contact us. Supervising Physician Co-Signing Physician Notes Agree with MIKEL Mix as above Abd: Soft, NT, ND, +BS Continue current therapy and supportive care Proceed with EGD now History of Present Illness Reason for Consultation: GIB Requesting Physician: Forest Cho PA-C Attending Physician: Guillermo Pedroza MD History of Present Illness Patient is a 83 y.o. 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 She states the stools are loose and very dark brown and black. She is status post left EVANGELIST by Dr. Lucero on 11/27/23. She is on chronic anticoagulation with both ASA and Eliquis. Denies any nausea or vomiting, abdominal pain or other GI complaints. Hemoglobin on 11/07 was noted to be 11.8 but was 8.6 yesterday and dropped to 7.4 this morning. She has been placed on NPO status and started on PPI/H2RA IV BID. Last colonoscopy performed by Dr. Weinberg on 12/13/22 demonstrated quiescent UC disease with removal of a sigmoid polyp. Allergies Allergy/AdvReac Type Severity Reaction Status Date / Time levothyroxine AdvReac Intermediate Hives Verified 12/08/23 13:30 morphine AdvReac Mild NAUSEA Verified 12/08/23 13:30 VOMITING Home Medications Medication Instructions Recorded Confirmed Type cholecalciferol (vitamin D3) 25 25 mcg PO HS 11/29/21 12/13/23 History mcg (1,000 unit) tablet (Vitamin D3) dorzolamide 2 %-timolol 0.5 % (PF) 1 drp ophthalmic (eye) BID 11/29/21 12/13/23 History eye drops calcium 600 mg capsule 600 mg PO BID 12/08/22 12/13/23 History vit A 7,160 unit-vit C 113 mg-vit 2 tab PO BID 12/08/22 12/13/23 History E 100 fdgk-docq-okjulm tablet ezetimibe 10 mg tablet (Zetia) 10 mg PO QAM #90 tabs 03/27/23 12/13/23 Rx simvastatin 80 mg tablet 80 mg PO HS #90 tabs 04/19/23 12/13/23 Rx fluocinolone acetonide oil 0.01 % 5 drp otic (ear) Q7D PRN itching 11/06/23 12/13/23 History ear drops pantoprazole 40 mg tablet,delayed 40 mg PO QAM 11/06/23 12/13/23 History release mesalamine 1.2 gram tablet,delayed 2.4 g PO BID 11/27/23 12/13/23 History release (Lialda) aspirin 81 mg tablet,delayed 81 mg PO BID 42 days #0 tabs 11/28/23 12/13/23 Rx release hydrocodone 5 mg-acetaminophen 325 1 tab PO Q6H PRN pain #30 tabs 11/28/23 12/13/23 Rx mg tablet apixaban 5 mg tablet (Eliquis) See Rx Instructions .Route 12/08/23 12/13/23 Rx .COMPLEX #74 tabs Patient History Medical History Right leg pain Edema of right lower extremity History of COVID-19 11/2022, home test, not hosp; cough, runny nose, fatigue>resolved Ulcerative colitis - during last colonoscopy 2022, dr. 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 History of tooth extraction History of cochlear implant R side, done with [facility], 06/2021 History of right hip replacement (~04/2020) History of carotid endarterectomy w/stent lt side History of total shoulder replacement lt. History of total knee replacement bilateral History of colonoscopy History of detached retina repair lt eye History of tonsillectomy Family History Mother Ovarian cancer Fallopian tube carcinoma Father Coronary heart disease Myocardial infarction Other No family history of adverse response to anesthesia Denies family history of Prostate cancer Breast cancer Colorectal cancer Social History Smoking Status: Never smoker Tobacco Type: Cigarettes Age Started Using Tobacco: 19; Age Quit Using Tobacco: 70; packs per day: 0.5; Second Hand Exposure: No; Do You Dip or Chew Tobacco: No; Tobacco Cessation Education Requested by Patient: No Hx Alcohol Use: Yes Alcohol type: wine Alcohol Intake Frequency: 4 or More x per/Week Alcohol Intake Frequency Comment: 1 per day Hx Substance Use: No Preferred Language: Kazakh Communication Ability: Effective Communication Ability Comment: BILAT HEARING AIDES-VERY CHILKAT Visual Impairment: Limited Hearing Ability: Use of Hearing Aid Fiscal Specialist Required: No Beliefs That Will Affect Care: None marital status: Current Living Situation: Spouse current occupational status: retired current occupation: retired from career as physical therapist Other Information That Helps Us Care for You: No Feels Safe at Home: Yes Safety Concerns: Feels Safe At This Time Childhood Exposure to Second-Hand Smoke: No Diet: low carbohydrate and regular Diet Comment: Lives with a diabetic, eats a healthy diet caffeine: Yes (One cup of coffee daily ) Dental Care, Regularly: Yes Physical Activity Frequency: Daily Physical Activity Frequency Comment: intermittent exercises, walking for approx 30-45min Seatbelt Use: always Sunscreen Use: No Assistive Devices: Glasses, Hearing Aid - Bilateral and Walker Review of Systems Review of Systems: All systems reviewed & are unremarkable except as noted in HPI & below Physical Exam Constitutional: WD/WN, vitals as above Respiratory: normal respiratory effort, lungs clear to auscultation Cardiovascular: RRR, no murmur, no edema Gastrointestinal (Abdomen): normal bowel sounds, soft, nontender, no hepatosplenomegaly Psychiatric: A+Ox3, euthymic affect Results & Data Vital Signs (Past 12 Hours) Vital Signs Temp Pulse Pulse Resp BP Pulse Ox O2 Del Method 12/14/23 07:51 36.6 C 88 20 144/83 H 95 Room Air 12/14/23 07:17 94 H 12/14/23 03:54 36.7 C 93 H 16 138/78 95 Room Air 12/13/23 23:18 Room Air Diagnostic Findings Laboratory Results WBC 7.35 K/ul (4.8-10.8) 12/14/23 05:38 RBC 2.40 M/uL (4.20-5.40) L 12/14/23 05:38 Hgb 7.4 g/dl (12.0-16.0) L 12/14/23 05:38 Hct 22.4 % (37.0-47.0) L 12/14/23 05:38 MCV 93.3 fL (80.0-100.0) 12/14/23 05:38 MCH 30.8 pg (25.0-34.0) 12/14/23 05:38 MCHC 33.0 g/dL (32.0-36.0) 12/14/23 05:38 RDW Std Deviation 50.8 fL (36.4-46.3) H 12/14/23 05:38 RDW Coeff of Jake 15.0 % (11.5-14.5) H 12/14/23 05:38 Plt Count 537 K/uL (130-400) H 12/14/23 05:38 MPV 9.6 fL (9.4-12.4) 12/14/23 05:38 Immature Gran % (Auto) 0.4 % 12/14/23 05:38 Neut % (Auto) 66.8 % 12/14/23 05:38 Lymph % (Auto) 18.2 % 12/14/23 05:38 [place] % (Auto) 11.0 % 12/14/23 05:38 Eos % (Auto) 2.4 % 12/14/23 05:38 Baso % (Auto) 1.2 % 12/14/23 05:38 Neut # (Auto) 4.90 K/uL (1.40-6.50) 12/14/23 05:38 Lymph # (Auto) 1.34 K/uL (1.20-3.40) 12/14/23 05:38 [place] # (Auto) 0.81 K/uL (0.11-0.59) H 12/14/23 05:38 Eos # (Auto) 0.18 K/uL (0.00-0.50) 12/14/23 05:38 Baso # (Auto) 0.09 K/uL (0.00-0.20) 12/14/23 05:38 Immature Gran # (Auto) 0.03 K/uL (0.01-0.20) 12/14/23 05:38 Polychromasia 1+ 12/14/23 05:38 PT 11.8 Seconds (9.0-12.0) 12/13/23 12:05 INR 1.1 (0.9-1.1) 12/13/23 12:05 APTT 34 Seconds (21-31) H 12/13/23 12:05 PTT Ratio 1.2 12/13/23 12:05 Sodium 139 mmol/L (136-145) 12/14/23 05:38 Potassium 4.2 mmol/L (3.5-5.1) 12/14/23 05:38 Chloride 108 mmol/L (98-107) H 12/14/23 05:38 Carbon Dioxide 26 mmol/L (21-32) 12/14/23 05:38 Anion Gap 5 (3-11) 12/14/23 05:38 BUN 15 mg/dl (6-23) 12/14/23 05:38 Creatinine 0.61 mg/dl (0.6-1.2) 12/14/23 05:38 Est Cr Clr Drug Dosing 68.1 ml/min 12/14/23 05:38 Est GFR ( Amer) 97.8 ml/min 12/14/23 05:38 Est GFR (Non-Af Amer) 84.4 ml/min 12/14/23 05:38 BUN/Creatinine Ratio 24.6 (10-20) H 12/14/23 05:38 Glucose 95 mg/dl (70-99(Fasting)) 12/14/23 05:38 Calcium 8.3 mg/dl (8.6-10.3) L 12/14/23 05:38 Magnesium 2.2 mg/dl (1.7-2.4) 12/13/23 12:05 Total Bilirubin 0.4 mg/dl (0.2-1.0) 12/13/23 12:05 AST 17 U/L (13-39) 12/13/23 12:05 ALT 10 U/L (7-52) 12/13/23 12:05 Alkaline Phosphatase 76 U/L (34-104) 12/13/23 12:05 Troponin I High Sens 8.2 pg/ml (0-14) 12/13/23 12:05 Total Protein 6.6 gm/dl (6.0-8.3) 12/13/23 12:05 Albumin 3.6 gm/dl (3.4-5.0) 12/13/23 12:05 Globulin 3.0 gm/dl (2.5-4.0) 12/13/23 12:05 Albumin/Globulin Ratio 1.2 (0.9-2) 12/13/23 12:05 Blood Type A Positive 12/13/23 12:43 Antibody Screen NEGATIVE 12/13/23 12:43 Impressions Venous Doppler Study 12/13/23 20:49 Exam(s): US VENOUS RIGHT LOWER EXTREMITY EXAM: US Duplex Right Lower Extremity Veins CLINICAL HISTORY: Reason for exam: Long segment occlusion in prior study on 12/07. TECHNIQUE: Real-time duplex ultrasound scan of the right lower extremity veins integrating B-mode two-dimensional vascular structure, Doppler spectral analysis, color flow Doppler imaging and compression. COMPARISON: 12/08/2023. FINDINGS: Deep veins: Unremarkable. No DVT in the visualized common femoral, femoral, proximal deep femoral or popliteal veins. The veins demonstrate normal color flow, are normally compressible, with normal phasic flow and/or augmentation response. Superficial veins: There is partial compressibility of the right greater saphenous vein from the mid thigh to the medial aspect of the knee, unchanged in the interval, measured over a length of 18.7 cm. No thrombus in the visualized great saphenous vein. Soft tissues: No acute findings. No popliteal cyst. IMPRESSION: 1. No ultrasonographic evidence of deep venous thrombosis involving the right lower extremity. 2. Superficial thrombosis involving the greater saphenous vein from mid thigh to the medial aspect of the knee as described, unchanged in the interval. Electronically signed by: Rosalind Vera MD 12/14/23 01:50 AM PG Care Time/CCT Total # of Minutes Spent Total Time Spent with Patient: Total time spent is greater than 50% in coordination of care (as documented) at patient's floor/unit and/or counseling patient: Coding Level of Care Code 12275 INT INP/OBS CARE 3/75MIN Diagnoses Black stool K92.1 Acute blood loss anemia D62
--- NOTE | 2023-12-14 12:24 | Anesthesiology Consultation ---
Date of Service December 14, 2023 Assessment & Plan Consults Requested medical & cardiac Pulmonary History Surgery Operation Date: 12/14/23 16:45 Proposed Procedures p Esophagogastroduodenoscopy Dr Weinberg - Josef Conner Case, DO Height/Weight Height: 5 ft 2 in Weight: 76.6 kg Allergies Allergy/AdvReac Type Severity Reaction Status Date / Time levothyroxine AdvReac Intermediate Hives Verified 12/08/23 13:30 morphine AdvReac Mild NAUSEA Verified 12/08/23 13:30 VOMITING Medications Home Medications Medication Instructions Recorded Confirmed Last Taken cholecalciferol (vitamin D3) 25 25 mcg PO HS 11/29/21 12/13/23 11/25/23 mcg (1,000 unit) tablet (Vitamin D3) dorzolamide 2 %-timolol 0.5 % (PF) 1 drp ophthalmic (eye) BID 11/29/21 12/13/23 11/27/23 05:00 eye drops calcium 600 mg capsule 600 mg PO BID 12/08/22 12/13/23 11/18/23 vit A 7,160 unit-vit C 113 mg-vit 2 tab PO BID 12/08/22 12/13/23 11/25/23 E 100 cayv-umaw-xllzww tablet ezetimibe 10 mg tablet (Zetia) 10 mg PO QAM #90 tabs 03/27/23 12/13/23 11/27/23 05:00 simvastatin 80 mg tablet 80 mg PO HS #90 tabs 04/19/23 12/13/23 11/25/23 20:00 fluocinolone acetonide oil 0.01 % 5 drp otic (ear) Q7D PRN itching 11/06/23 12/13/23 Unknown ear drops pantoprazole 40 mg tablet,delayed 40 mg PO QAM 11/06/23 12/13/23 11/27/23 05:00 release mesalamine 1.2 gram tablet,delayed 2.4 g PO BID 11/27/23 12/13/23 11/26/23 release (Lialda) aspirin 81 mg tablet,delayed 81 mg PO BID 42 days #0 tabs 11/28/23 12/13/23 11/27/23 05:00 release hydrocodone 5 mg-acetaminophen 325 1 tab PO Q6H PRN pain #30 tabs 11/28/23 12/13/23 Unknown mg tablet apixaban 5 mg tablet (Eliquis) See Rx Instructions .Route 12/08/23 12/13/23 Unknown .COMPLEX #74 tabs Active Medications Generic Name Dose Route Start Last Admin Trade Name Freq PRN Reason Stop Dose Admin Diclofenac Sodium 2 gm 12/14/23 09:00 12/14/23 07:59 Diclofenac Sod 1% Gel 100 Gm Tube EXT 01/13/24 08:59 2 gm QID ANKITA Administration Protocol Dorzolamide/Timolol 1 drops 12/13/23 21:00 12/14/23 07:59 Dorzolamide/Timolol 22.3/6.8mg/Ml 10 Ml Btl OP 01/12/24 20:59 1 drops BID ANKITA Administration Lactated Ringer's 1,000 mls @ 80 mls/hr 12/13/23 14:45 12/14/23 03:58 Lr IV 12/15/23 04:14 80 mls/hr .[id number] ANKITA Administration Pantoprazole Sodium 40 mg/ 10 mls @ 5 mls/min 12/13/23 21:00 12/14/23 08:00 Syringe IV 01/12/24 20:59 5 mls/min BID ANKITA Administration Acetaminophen 1,000 mg in 100 mls @ 400 mls/hr 12/13/23 17:27 12/14/23 04:15 Ofirmev IV 12/16/23 17:26 Infused Q8H PRN Infusion Strict NPO Famotidine 20 mg in 5 mls @ 2.5 mls/min 12/13/23 20:00 12/14/23 07:59 Pepcid 20mg Iv Push IV 01/12/24 19:59 2.5 mls/min Q12H ANKITA Administration NPO Date Last Intake of Fluids: 12/13/23 Time Last Intake of Fluids: 09:00 Date Last Intake of Solids: 12/13/23 Time Last Intake of Solids: 09:00 Past Medical History Medical History Right leg pain Edema of right lower extremity History of COVID-19 11/2022, home test, not hosp; cough, runny nose, fatigue>resolved Ulcerative colitis - during last colonoscopy 2022, dr. 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 History of tooth extraction History of cochlear implant R side, done with [facility] [place], operated by [facility], 06/2021 History of right hip replacement (~04/2020) History of carotid endarterectomy w/stent lt side History of total shoulder replacement lt. History of total knee replacement bilateral History of colonoscopy History of detached retina repair lt eye History of tonsillectomy Social History Smoking Status: Never smoker tobacco type: cigarettes Do You Dip or Chew Tobacco: No Hx Alcohol Use: Yes Alcohol type: wine alcohol intake frequency: 0-2 drinks per day Hx Substance Use: No substance use type: does not use Physical Exam Vital Signs Last Vital Signs Temp 36.3 C L 12/14/23 12:07 Pulse 100 H 12/14/23 12:07 Resp 18 12/14/23 12:07 BP 163/86 H 12/14/23 12:07 Pulse Ox 93 12/14/23 12:07 O2 Del Method Room Air 12/14/23 12:07 Testing Laboratory Results 12/14/23 05:38 12/14/23 05:38 PT 11.8 Seconds (9.0-12.0) 12/13/23 12:05 INR 1.1 (0.9-1.1) 12/13/23 12:05 APTT 34 Seconds (21-31) H 12/13/23 12:05 Blood Type A Positive 12/13/23 12:43 Antibody Screen NEGATIVE 12/13/23 12:43
--- NOTE | 2023-12-14 12:56 | GI REPORT ---
Patient Name: Courtney Patel Procedure Date: 12/14/2023 12:12 PM Date of : 1940 Admit Type: Inpatient Age: 83 Gender: Female Attending MD: Josef Mendoza DO, Procedure: Upper GI endoscopy Providers: Josef Mendoza DO Referring MD: Trevin Hernandez DO, Guillermo Pedroza MD Indications: Acute post hemorrhagic anemia, Melena Medicines: Monitored Anesthesia Care Complications: No immediate complications. Estimated Blood Loss: Estimated blood loss: none. Procedure: Pre-Anesthesia Assessment: - Prior to the procedure, a History and Physical was performed, and patient medications and allergies were reviewed. The patient's tolerance of previous anesthesia was also reviewed. The risks and benefits of the procedure and the sedation options and risks were discussed with the patient. All questions were answered, and informed consent was obtained. Prior Anticoagulants: The patient has taken Eliquis (apixaban), last dose was 1 day prior to procedure. ASA Grade Assessment: III - A patient with severe systemic disease. After reviewing the risks and benefits, the patient was deemed in satisfactory condition to undergo the procedure. After obtaining informed consent, the endoscope was passed under direct vision. Throughout the procedure, the patient's blood pressure, pulse, and oxygen saturations were monitored continuously. The Endoscope was introduced through the mouth, and advanced to the second part of duodenum. The upper GI endoscopy was accomplished without difficulty. The patient tolerated the procedure well. Findings: A non-obstructing Schatzki ring was found in the distal esophagus. A small hiatal hernia was present. The examined duodenum was normal. Impression: - Non-obstructing Schatzki ring. - Small hiatal hernia. - Normal examined duodenum. - No specimens collected. Recommendation: - Return patient to [facility] for ongoing care. - Clear liquid diet. - Continue present medications. - Perform a CTA scan (computed tomography angiogram) of abdomen with contrast and pelvis with contrast today. Josef Mendoza DO 12/14/2023 12:55:52 PM This report has been signed electronically. Note Initiated On: 12/14/2023 12:12 PM Number of Addenda: 0 I attest to the content of the Intraoperative Record and orders documented therein, exceptions below {[id number]}
[2023-12-14] MEDS: OPTIRAY 320 125ml IV ONE (13:54)
[2023-12-14] MEDS: LIDOCAINE 2% 2 ML VIAL/AMP(20MG/ML) INFIL ONE (14:20)
[2023-12-14] MEDS: PROPOFOL IV EMULSION 10 MG/ML 20 ML VIAL IV ONE (14:20)
--- NOTE | 2023-12-14 14:23 | Hospitalist Progress Note ---
Date of Service December 14, 2023 Assessment & Plan (1) Upper GI bleed: Plan: Dark tarry stools starting on 12/11 Patient was at the ED on Thursday 12/07 for a superficial right upper leg blood clot; started on Eliquis --> now on hold - was also taking ASA BID since hip replacement 11/27 - repeat venous doppler with stable clot Hemoglobin 9.1 on arrival, lowest 7.4 but most recent 8.4 -No hx of blood transfusions - Blood informed consent obtained by admitting team; 2u pRBCs ordered, held if needed GI consulted - EGD: non-obstructive schatzki ring, no source of bleeding - CTA of abdomen and pelvis ordered - continue pantroprzole and famotidine IV BID IVF resuscitation with LR at 80mL/hr x 3 A.m. CBC, BMP (2) Ulcerative proctosigmoiditis: Plan: Patient denies any recent BRB in rectum On mesalamine; continue to hold (3) Carotid artery stenosis: Plan: S/p left CEA in 2003 Patient notes that she does have a stent, but given it is not recent, we will plan to hold aspirin at this time (4) History of left hip replacement: Plan: On 11/[address] Lucero Pain control with acetaminophen (as above) - 21 clare removed in the ED 12/12 without issue Plan Disposition: continued inpatient stay VTE PPx: SCDs (hold all chemical DVT PPx in the setting of acute upper GI bleed) Family updated at bedside. Admission and Anticipated Discharge Date Admission Date: December 13, 2023 Supervising Physician Co-Signing Physician Notes Attending Attestation - Chart reviewed, care plan d/w BALJIT Madera. I agree w/ the montilla components of her documentation. Guillermo Pedroza MD Subjective Patient sitting in bed, significant other and sister present at bedside. Just had EGD and CT scan, possible colonoscopy this afternoon pending results. No pain currently. Denies lightheadedness or dizziness. has been napping more at home. denies SOB. Will get repeat H&H now SR PVCs 80-90s Review of Systems Review of Systems: All systems reviewed & are unremarkable except as noted in Subjective Physical Exam Physical Exam: General: NAD, VS as above Resp: normal respiratory effort, lungs clear to auscultation CV: RRR, no murmur, Abd: normal bowel sounds, non tender, no hepatosplenomegaly Extremities: Moves all extremities, no edema Neuro: A&O x3, Skin: intact, no lesions noted. not pale Results & Data Results & Data Vital Signs (Past 12 Hours) Vital Signs Temp Pulse Pulse Resp BP Pulse Ox O2 Del Method 12/14/23 13:25 78 16 174/96 H 97 Room Air 12/14/23 13:13 165/95 H 12/14/23 13:10 77 16 156/109 H 96 Room Air 12/14/23 12:55 78 16 131/77 97 Room Air 12/14/23 12:07 36.3 C L 100 H 18 163/86 H 93 Room Air 12/14/23 11:21 36.4 C L 82 18 140/77 96 Room Air 12/14/23 07:51 36.6 C 88 20 144/83 H 95 Room Air 12/14/23 07:17 94 H 12/14/23 03:54 36.7 C 93 H 16 138/78 95 Room Air Laboratory Results CBC and chemistry reviewed Diagnostic Findings EGD reviewed PG Care Time/CCT Total # of Minutes Spent Total Time Spent with Patient: Total time spent is greater than 50% in coordination of care (as documented) at patient's floor/unit and/or counseling patient: Coding Level of Care Code 50355 SUB INP/OBS CARE 2/35MIN Diagnoses Upper GI bleed K92.2 Ulcerative proctosigmoiditis K51.30 Carotid artery stenosis I65.29 History of left hip replacement Z96.642
[2023-12-14 14:35] LABS: Hematocrit (blood only) 26.4 % (37.0-47.0); Hemoglobin 8.4 g/dl (12.0-16.0)
--- NOTE | 2023-12-14 15:14 | Anesthesiology Progress Note ---
Date of Service December 14, 2023 Anesthesia Post Procedure Vital Signs Vital Signs: Temp Pulse Pulse Resp BP Pulse Ox Pulse Ox 12/14/23 13:25 78 16 174/96 H 97 12/14/23 13:13 165/95 H 12/14/23 13:10 77 16 156/109 H 96 12/14/23 12:55 78 16 131/77 97 12/14/23 12:07 36.3 C L 100 H 18 163/86 H 93 12/14/23 11:21 36.4 C L 82 18 140/77 96 12/14/23 07:51 36.6 C 88 20 144/83 H 95 12/14/23 07:17 94 H 12/14/23 03:54 36.7 C 93 H 16 138/78 95 12/13/23 23:18 12/13/23 22:41 88 12/13/23 22:00 36.9 C 88 16 146/82 H 96 12/13/23 20:54 89 18 155/96 H 95 12/13/23 18:21 85 20 157/96 H 98 12/13/23 17:35 97 12/13/23 17:34 84 18 165/83 H 97 12/13/23 16:00 79 18 173/97 H 97 O2 Del Method O2 Del Method 12/14/23 13:25 Room Air 12/14/23 13:13 12/14/23 13:10 Room Air 12/14/23 12:55 Room Air 12/14/23 12:07 Room Air 12/14/23 11:21 Room Air 12/14/23 07:51 Room Air 12/14/23 07:17 12/14/23 03:54 Room Air 12/13/23 23:18 Room Air 12/13/23 22:41 12/13/23 22:00 Room Air 12/13/23 20:54 Room Air 12/13/23 18:21 Room Air 12/13/23 17:35 Room Air 12/13/23 17:34 Room Air 12/13/23 16:00 Room Air Transfer of Care Handoff Completed per policy Notes Mental Status: alert / awake / arousable and participated in evaluation Nausea / Vomiting: adequately controlled Pain: adequately controlled Airway Patency, RR, SpO2: stable & adequate BP & HR: stable & adequate Hydration State: stable & adequate Anesthetic Complications: no major complications apparent and Pt Satisfied with anesthetic care
--- NOTE | 2023-12-14 15:22 | CT Scan Report ---
CT angio abdomen pelvis w con CT DOSE: 1060.08 mGy.cm CLINICAL HISTORY: Acute blood loss anemia TECHNIQUE: Multiaxial CT images of the abdomen and pelvis were performed following the intravenous ad ministration of 115 cc of Optiray 320. 3-D/maximum intensity projection images in the sagittal and co poornima plane were performed for the CTA portion of the examination. A dose lowering technique was uti lized adhering to the principles of ALARA. COMPARISON STUDY: Abdomen and pelvis CT 03/05/2020. FINDINGS: Stable 5 mm nodule within the right lower lobe on image 23. This is likely benign. Mild dep endent changes seen at the lung bases. No pneumoperitoneum. No pneumatosis. No acute fractures. Bilat eral L5 spondylolysis with associated grade 1 anterolisthesis. There is also grade 1 anterolisthesis of L4 on L5. No acute fractures. Prior right total hip arthroplasty. Status post recent left total hi p arthroplasty. Partially visualized 3.9 cm soft tissue/intramuscular fluid collection anterior to th e left hip prosthesis. This is best seen image 305. This may represent a postoperative seroma or gladys rahul. There is an additional small 3 cm subcutaneous fluid collection anterior to the left hip on yola ge 235. This also favors a small postoperative seroma/hematoma. No retroperitoneal hematoma. Skin thi ckening within the left lateral hip likely due to the recent postoperative change. The liver, gallbla dder, pancreas, spleen, and adrenal glands are unremarkable. No retroperitoneal lymphadenopathy. A fe w small bilateral peripelvic renal cysts. The kidneys enhance normally. No hydronephrosis. No pelvic lymphadenopathy. No significant pelvic free fluid. The bladder is unremarkable. Small calcified uteri ne fibroid is again noted. Colonic diverticulosis. No evidence for acute diverticulitis. No bowel wal l thickening or obstruction. Normal appendix. Moderate to severe calcified plaque within the normal caliber abdominal aorta and common iliac arteri es. No evidence for an aortic dissection. Calcified plaque at the origin of the superior mesenteric a rtery without significant stenosis. The celiac artery and inferior mesenteric artery are patent. Ther e is a replaced right hepatic artery which originates from the superior mesenteric artery. This is co nsidered to be a normal variant. Moderate calcified plaque within the proximal bilateral renal arteri es without significant stenosis or occlusion. There are single bilateral renal arteries noted. Modera te focal stenosis of approximately 50% at the takeoff of the left superficial femoral artery. Mild mu ltifocal narrowing within the bilateral common and external iliac arteries due to the extensive calci fied plaque. IMPRESSION: 1. Status post recent left total hip arthroplasty. Small fluid collections anterior to the left hip s uggesting postoperative seroma/hematomas. 2. No retroperitoneal hematoma. 3. Moderate focal narrowing at the takeoff of the left superficial femoral artery due to the calcifie d plaque. There is mild multifocal narrowing within the bilateral iliac arteries. 4. Colonic diverticulosis. No evidence for acute diverticulitis. 5. No bowel wall thickening or obstruction. 6. Additional findings as described above. ACT 112: Negative or not required by law. Electronically signed by: Forest Warner M.D. 12/14/2023 3:21 PM
[2023-12-14] MEDS: HYDROmorphone INJ 0.5 MG/0.5 ML SYR IV PRN (20:54)
[2023-12-15 06:33] LABS: Basophils # (auto) 0.09 K/uL (0.00-0.20); Basophils % (auto) 1.4 %; Eosinophils # (auto) 0.16 K/uL (0.00-0.50); Eosinophils % (auto) 2.4 %; Hematocrit (blood only) 23.8 % (37.0-47.0); Hemoglobin 7.7 g/dl (12.0-16.0); Immature Granulocytes # (auto) 0.03 K/uL (0.01-0.20); Immature Granulocytes % (auto) 0.5 %; Lymphocytes # (auto) 1.22 K/uL (1.20-3.40); Lymphocytes % (auto) 18.6 %; Mean Corpuscular Hemoglobin 30.4 pg (25.0-34.0); Mean Corpuscular Hgb Conc 32.4 g/dL (32.0-36.0); Mean Corpuscular Volume 94.1 fL (80.0-100.0); Mean Platelet Volume 9.6 fL (9.4-12.4); Monocytes # (auto) 0.64 K/uL (0.11-0.59); Monocytes % (auto) 9.8 %; Neutrophils # (auto) 4.41 K/uL (1.40-6.50); Neutrophils % (auto) 67.3 %; Platelet Count 585 K/uL (130-400); RDW Coefficient of Variation 15.4 % (11.5-14.5); RDW Standard Deviation 51.9 fL (36.4-46.3); Red Blood Count 2.53 M/uL (4.20-5.40); White Blood Count 6.55 K/ul (4.8-10.8)
[2023-12-15 06:38] LABS: BUN Creatinine Ratio 19.2 (10-20); Calcium 8.2 mg/dl (8.6-10.3); Creatinine Clr Calc Pharmacy 78.1 ml/min; Est GFR (African American) 103.1 ml/min; Potassium 3.7 mmol/L (3.5-5.1)
[2023-12-15 07:14] LABS: Polychromasia 1+
--- NOTE | 2023-12-15 11:11 | Gastroenterology Progress Note ---
Date of Service December 15, 2023 Assessment & Plan (1) Black stool: (2) Acute blood loss anemia: Plan Patient is a 83 y.o. 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 Lucero on 11/27/23 admitted with melena and acute blood loss anemia. -Continue clear liquid diet. -Would defer colonoscopy due to post-op EVANGELIST status unless significant drop in H&H. -Continue Pantoprazole 40 mg and Famotidine 20 mg IV BID. -Continue supportive care. Admission and Anticipated Discharge Date Admission Date: December 13, 2023 Subjective Patient reports stool remains black. H&H did trend down slightly overnight. Diet advanced to clears. No n/v/abdominal pain. Stools loose. Has a pending FOCB test which she states was collected this morning. No source of GIB on EGD or CTA abd/pelvis. Review of Systems Constitutional: no problem reported Gastrointestinal: as per Subjective / HPI Physical Exam Constitutional: WD/WN, vitals as above Respiratory: normal respiratory effort, lungs clear to auscultation Cardiovascular: Rate/Rhythm: regular rate and regular rhythm Heart Sounds: + murmur Gastrointestinal (Abdomen): normal bowel sounds, soft, nontender, no hepatosplenomegaly Results & Data Results & Data Vital Signs (Past 12 Hours) Vital Signs Temp Pulse Pulse Resp BP Pulse Ox O2 Del Method 12/15/23 07:48 36.7 C 90 20 122/75 95 Room Air 12/15/23 07:21 85 12/15/23 03:17 36.6 C 80 18 144/74 H 95 Room Air Diagnostic Findings Abnormal lab results 12/14/23 12/15/23 Range/Units 14:22 05:26 RBC 2.53 L (4.20-5.40) M/uL Hgb 8.4 L 7.7 L (12.0-16.0) g/dl Hct 26.4 L 23.8 L (37.0-47.0) % RDW Std Deviation 51.9 H (36.4-46.3) fL RDW Coeff of Jake 15.4 H (11.5-14.5) % Plt Count 585 H (130-400) K/uL [place] # (Auto) 0.64 H (0.11-0.59) K/uL Creatinine 0.52 L (0.6-1.2) mg/dl Calcium 8.2 L (8.6-10.3) mg/dl PG Care Time/CCT Total # of Minutes Spent Total Time Spent with Patient: Total time spent is greater than 50% in coordination of care (as documented) at patient's floor/unit and/or counseling patient: Coding Level of Care Code 42223 SUB INP/OBS CARE 3/50MIN Diagnoses Black stool K92.1 Acute blood loss anemia D62
--- NOTE | 2023-12-15 13:22 | Hospitalist Progress Note ---
Date of Service December 15, 2023 Assessment & Plan (1) Upper GI bleed: Plan: Acute blood loss anemia Dark tarry stools starting on 12/11 Patient was at the ED on Thursday 12/07 for a superficial right upper leg blood clot; started on Eliquis --> now on hold - was also taking ASA BID since hip replacement 11/27 - repeat venous doppler with stable clot Hemoglobin 9.1 on arrival, stable this afternoon at 8.0 - No hx of blood transfusions - Blood informed consent obtained by admitting team; 2u pRBCs ordered, held if needed - IV Venofer x3 doses ordered GI consulted - EGD: non-obstructive schatzki ring, no source of bleeding - CTA of abdomen and pelvis ordered - continue pantroprzole and famotidine IV BID - defer colonoscopy with recent postop hip, unless significant drop in H&H IVF resuscitation LR x 3, now tolerating clear liquids without issue A.m. CBC, BMP (2) Ulcerative proctosigmoiditis: Plan: Patient denies any recent BRB in rectum On mesalamine; continue to hold (3) Carotid artery stenosis: Plan: S/p left CEA in 2003 Patient notes that she does have a stent, but given it is not recent, we will plan to hold aspirin at this time (4) History of left hip replacement: Plan: On 11/[address] Lucero Pain control with acetaminophen (as above) - 21 clare removed in the ED 12/12 without issue Plan Disposition: continued inpatient stay VTE PPx: SCDs (hold all chemical DVT PPx in the setting of acute upper GI bleed) Family updated at bedside. Admission and Anticipated Discharge Date Admission Date: December 13, 2023 Supervising Physician Co-Signing Physician Notes Attending Attestation - Chart reviewed, care plan d/w BALJIT Madera. I agree w/ the montilla components of her documentation. Apprec[facility]. EGD results reviewed - no source of bleed found. Could consider colonoscopy but stool is melena in appearance suggesting more proximal source. Small bowel AVM? Other lesion of the small bowel? Defer additional w/u to GI. H/H noted today. Guillermo Pedroza MD Subjective Patient sitting on the side of the bed. Very happy after finishing her first clear liquid meal - no nausea or abdominal pain. States she did get a little dizzy after bending down to wash herself up. resolved quickly. Denies pain Tele - SR PVCs 80s Review of Systems Review of Systems: All systems reviewed & are unremarkable except as noted in Subjective Physical Exam Physical Exam: General: NAD, VS as above Resp: normal respiratory effort, lungs clear to auscultation CV: RRR, no murmur, Abd: normal bowel sounds, non tender, no hepatosplenomegaly Extremities: Moves all extremities, no edema. right laura hose in place Neuro: A&O x3, Skin: intact, no lesions noted. not pale Results & Data Results & Data Vital Signs (Past 12 Hours) Vital Signs Temp Pulse Pulse Resp BP Pulse Ox O2 Del Method 12/15/23 11:31 36.9 C 75 18 121/63 95 Room Air 12/15/23 07:48 36.7 C 90 20 122/75 95 Room Air 12/15/23 07:21 85 12/15/23 03:17 36.6 C 80 18 144/74 H 95 Room Air Laboratory Results CBC and chemistry reviewed PG Care Time/CCT Total # of Minutes Spent Total Time Spent with Patient: Total time spent is greater than 50% in coordination of care (as documented) at patient's floor/unit and/or counseling patient: Coding Level of Care Code 12133 SUB INP/OBS CARE 2/35MIN Diagnoses Upper GI bleed K92.2 Ulcerative proctosigmoiditis K51.30 Carotid artery stenosis I65.29 History of left hip replacement Z96.642
[2023-12-15] MEDS: IRON SUCROSE 300 MG in SODIUM CHLORIDE 0.9% 250 ML IV SCH (14:20)
[2023-12-15 17:17] LABS: Hematocrit (blood only) 24.6 % (37.0-47.0)
--- NOTE | 2023-12-15 21:42 | Electrocardiogram Report ---
Test Reason : Blood Pressure : / mmHG Vent. Rate : 083 BPM Atrial Rate : 083 BPM P-R Int : 180 ms QRS Dur : 092 ms QT Int : 360 ms P-R-T Axes : 050 035 054 degrees QTc Int : 423 ms Normal sinus rhythm Septal infarct (cited on or before 13-DEC-2023) Abnormal ECG When compared with ECG of 07-NOV-2023 12:27, Questionable change in initial forces of Septal leads Confirmed by Barry Watters ([id number]) on 12/15/2023 9:42:06 PM Referred By: Trevin Hernandez Confirmed By:Barry Watters
[2023-12-16 07:20] LABS: Basophils # (auto) 0.07 K/uL (0.00-0.20); Basophils % (auto) 0.9 %; Eosinophils # (auto) 0.19 K/uL (0.00-0.50); Eosinophils % (auto) 2.5 %; Hematocrit (blood only) 23.9 % (37.0-47.0); Hemoglobin 7.7 g/dl (12.0-16.0); Immature Granulocytes # (auto) 0.04 K/uL (0.01-0.20); Immature Granulocytes % (auto) 0.5 %; Lymphocytes # (auto) 0.93 K/uL (1.20-3.40); Lymphocytes % (auto) 12.3 %; Mean Corpuscular Hemoglobin 30.4 pg (25.0-34.0); Mean Corpuscular Hgb Conc 32.2 g/dL (32.0-36.0); Mean Corpuscular Volume 94.5 fL (80.0-100.0); Mean Platelet Volume 9.3 fL (9.4-12.4); Monocytes # (auto) 0.74 K/uL (0.11-0.59); Monocytes % (auto) 9.8 %; Nucleated RBC # (auto) 0.03 K/uL (0.00-0.12); Nucleated RBC % (auto) 0.4 %; Platelet Count 591 K/uL (130-400); RDW Coefficient of Variation 15.7 % (11.5-14.5); RDW Standard Deviation 53.3 fL (36.4-46.3); Red Blood Count 2.53 M/uL (4.20-5.40); White Blood Count 7.57 K/ul (4.8-10.8)
[2023-12-16 07:47] LABS: BUN Creatinine Ratio 16.7 (10-20); Calcium 8.1 mg/dl (8.6-10.3); Creatinine Clr Calc Pharmacy 67.4 ml/min; Est GFR (African American) 98.4 ml/min; Est GFR (Non-African American) 84.9 ml/min; Potassium 3.5 mmol/L (3.5-5.1)
[2023-12-16 08:06] LABS: RBC Morphology Unremarkable
--- NOTE | 2023-12-16 16:46 | Hospitalist Progress Note ---
Date of Service December 16, 2023 Assessment & Plan (1) Upper GI bleed: Plan: Acute blood loss anemia Dark tarry stools starting on 12/11 Patient was at the ED on Thursday 12/07 for a superficial right upper leg blood clot; started on Eliquis --> stopped on admission - was also taking ASA BID since hip replacement 11/27 - repeat venous doppler with stable clot --> will not be able to restart Eliquis at discharge, recommend repeat dopplers in one week post discharge Hemoglobin 9.1 on arrival, stable 7.7 - No hx of blood transfusions - Blood informed consent obtained by admitting team; 2u pRBCs ordered, held if needed. Has not required - IV Venofer x3 doses ordered GI consulted - EGD: non-obstructive schatzki ring, no source of bleeding - CTA of abdomen and pelvis ordered - continue pantroprzole and famotidine IV BID - defer colonoscopy with recent postop hip, unless significant drop in H&H IVF resuscitation LR x 3, now tolerating full liquids without issue Elevated platelets likely reactive to bleed A.m. CBC, BMP (2) Ulcerative proctosigmoiditis: Plan: Patient denies any recent BRB in rectum On mesalamine; continue to hold (3) Carotid artery stenosis: Plan: S/p left CEA in 2003 Patient notes that she does have a stent, but given it is not recent, we will plan to hold aspirin at this time (4) History of left hip replacement: Plan: On 11/[address] Lucero Pain control with acetaminophen (as above) - 21 clare removed in the ED 12/12 without issue Plan Disposition: continued inpatient stay VTE PPx: SCDs (hold all chemical DVT PPx in the setting of acute upper GI bleed) Family updated at bedside. Admission and Anticipated Discharge Date Admission Date: December 13, 2023 Supervising Physician Co-Signing Physician Notes Attending Attestation - Chart reviewed, care plan d/w BALJIT Madera. I agree w/ the omntilla components of her documentation. H/H noted today. Hb 7.7 - was same value 24 hours ago. Diet advancement per GI input. No overt evidence of ongoing bleeding. Guillermo Pedroza MD Subjective Reports that she is feeling better today. Tolerating full liquid diet without issue. Hoping to ambulate in the halls. Has not had another bowel movement yet today Tele: SR with PVCs 90-100 Review of Systems Review of Systems: All systems reviewed & are unremarkable except as noted in Subjective Physical Exam Physical Exam: General: NAD, VS as above Resp: normal respiratory effort, lungs clear to auscultation CV: RRR, no murmur, Abd: normal bowel sounds, non tender, no hepatosplenomegaly Extremities: Moves all extremities, no edema. laura hose in place Neuro: A&O x3, Skin: intact, no lesions noted. not pale Results & Data Results & Data Vital Signs (Past 12 Hours) Vital Signs Temp Pulse Pulse Resp BP Pulse Ox O2 Del Method 12/16/23 15:32 36.8 C 80 18 117/68 93 Room Air 12/16/23 14:00 83 12/16/23 11:30 36.7 C 79 20 132/74 91 Room Air 12/16/23 07:57 36.7 C 77 20 127/73 96 Room Air 12/16/23 06:30 87 Laboratory Results CBC and chemistry reviewed PG Care Time/CCT Total # of Minutes Spent Total Time Spent with Patient: Total time spent is greater than 50% in coordination of care (as documented) at patient's floor/unit and/or counseling patient: Coding Level of Care Code 64772 SUB INP/OBS CARE 2/35MIN Diagnoses Upper GI bleed K92.2 Ulcerative proctosigmoiditis K51.30 Carotid artery stenosis I65.29 History of left hip replacement Z96.642
[2023-12-17 06:36] LABS: Hematocrit (blood only) 22.2 % (37.0-47.0); Hemoglobin 7.3 g/dl (12.0-16.0); Mean Corpuscular Hemoglobin 30.7 pg (25.0-34.0); Mean Corpuscular Hgb Conc 32.9 g/dL (32.0-36.0); Mean Corpuscular Volume 93.3 fL (80.0-100.0); Mean Platelet Volume 9.5 fL (9.4-12.4); Nucleated RBC # (auto) 0.08 K/uL (0.00-0.12); Nucleated RBC % (auto) 1.2 %; Platelet Count 572 K/uL (130-400); RDW Coefficient of Variation 15.7 % (11.5-14.5); RDW Standard Deviation 52.3 fL (36.4-46.3); Red Blood Count 2.38 M/uL (4.20-5.40); White Blood Count 6.75 K/ul (4.8-10.8)
[2023-12-17 07:01] LABS: BUN Creatinine Ratio 13.6 (10-20); Creatinine Clr Calc Pharmacy 68.3 ml/min; Est GFR (African American) 98.9 ml/min; Est GFR (Non-African American) 85.4 ml/min; Potassium 3.5 mmol/L (3.5-5.1)
--- NOTE | 2023-12-17 09:54 | Hospitalist Progress Note ---
Date of Service December 17, 2023 Assessment & Plan (1) Upper GI bleed: Plan: Acute blood loss anemia Dark tarry stools starting on 12/11 Patient was at the ED on Thursday 12/07 for a superficial right upper leg blood clot; started on Eliquis --> stopped on admission - was also taking ASA BID since hip replacement 11/27 - repeat venous doppler with stable clot --> will not be able to restart Eliquis at discharge, recommend repeat dopplers in one week post discharge Hemoglobin 9.1 on arrival, now 7.3 - No hx of blood transfusions - Blood informed consent obtained by admitting team; 2u pRBCs ordered, held if needed. Has not required - IV Venofer x3 doses received GI consulted - EGD: non-obstructive schatzki ring, no source of bleeding - CTA of abdomen and pelvis ordered - continue pantoprazole and famotidine IV BID - defer colonoscopy with recent postop hip, unless significant drop in H&H Elevated platelets likely reactive to bleed advanced diet to low fiber today recheck H&H this afternoon A.m. CBC, BMP (2) Ulcerative proctosigmoiditis: Plan: Patient denies any recent BRB in rectum On mesalamine; continue to hold (3) Carotid artery stenosis: Plan: S/p left CEA in 2003 Patient notes that she does have a stent, but given it is not recent, we will plan to hold aspirin at this time (4) History of left hip replacement: Plan: On 11/[address] Lucero Pain control with acetaminophen (as above) - 21 clare removed in the ED 12/12 without issue Plan Disposition: continued inpatient stay VTE PPx: SCDs (hold all chemical DVT PPx in the setting of acute upper GI bleed) Admission and Anticipated Discharge Date Admission Date: December 13, 2023 Subjective Patient seen sitting up in bed. Reports feeling well, has not had her low fiber tray yet. BM last night with some formed pieces, feels like it was "different shades of black" and some parts were health economist but not that she would call brown. Denies lightheadedness or dizziness. SR with PACs/PVCs 70-90 Review of Systems Review of Systems: All systems reviewed & are unremarkable except as noted in Subjective Physical Exam Physical Exam: General: NAD, VS as above Resp: normal respiratory effort, lungs clear to auscultation CV: RRR, no murmur, Abd: normal bowel sounds, non tender, no hepatosplenomegaly Extremities: Moves all extremities, no edema. laura hose in place, however folded over Neuro: A&O x3, Skin: intact, no lesions noted. not pale Results & Data Results & Data Vital Signs (Past 12 Hours) Vital Signs Temp Pulse Pulse Resp BP Pulse Ox O2 Del Method 12/17/23 08:54 36.6 C 75 18 142/75 H 93 Room Air 12/17/23 06:03 81 12/17/23 04:00 36.8 C 75 18 117/70 93 Room Air 12/17/23 00:25 71 12/16/23 23:59 36.6 C 75 20 135/70 93 Room Air Laboratory Results CBC and chemistry reviewed PG Care Time/CCT Total # of Minutes Spent Total Time Spent with Patient: Total time spent is greater than 50% in coordination of care (as documented) at patient's floor/unit and/or counseling patient: Coding Level of Care Code 51445 SUB INP/OBS CARE 2/35MIN Diagnoses Upper GI bleed K92.2 Ulcerative proctosigmoiditis K51.30 Carotid artery stenosis I65.29 History of left hip replacement Z96.642
[2023-12-17 14:45] LABS: Hematocrit (blood only) 24.3 % (37.0-47.0); Hemoglobin 7.9 g/dl (12.0-16.0)
[2023-12-18 08:16] LABS: Hematocrit (blood only) 27.8 % (37.0-47.0); Hemoglobin 8.7 g/dl (12.0-16.0); Mean Corpuscular Hemoglobin 30.5 pg (25.0-34.0); Mean Corpuscular Hgb Conc 31.3 g/dL (32.0-36.0); Mean Corpuscular Volume 97.5 fL (80.0-100.0); Mean Platelet Volume 9.6 fL (9.4-12.4); Nucleated RBC # (auto) 0.11 K/uL (0.00-0.12); Nucleated RBC % (auto) 1.4 %; Platelet Count 692 K/uL (130-400); RDW Coefficient of Variation 16.5 % (11.5-14.5); RDW Standard Deviation 57.7 fL (36.4-46.3); Red Blood Count 2.85 M/uL (4.20-5.40); White Blood Count 7.89 K/ul (4.8-10.8)
[2023-12-18 08:34] LABS: BUN Creatinine Ratio 16.9 (10-20); Calcium 8.5 mg/dl (8.6-10.3); Creatinine Clr Calc Pharmacy 62.3 ml/min; Est GFR (African American) 95.8 ml/min; Est GFR (Non-African American) 82.7 ml/min; Potassium 3.6 mmol/L (3.5-5.1)
--- NOTE | 2023-12-18 14:52 | Discharge Summary ---
Discharge Summary Date of Service December 18, 2023 Notes For Next Care Provider patient admitted with presumed GI bleed. Underwent EGD, with no findings. Likely needs a colonoscopy however GI wanted to defer this while patient is medically stable and recovering from her left hip surgery. States that they would do the surgery 4 to 6 weeks after replacement. Will continue aspirin twice daily with current superficial thrombosis. Will not resume Eliquis. Hemoglobin stable while inpatient, received 3 doses of IV iron. - recheck CBC later this week - repeat venous Doppler next week Medication Changes From Visit stop Eliquis Continue aspirin 81 mg twice daily next Admission HPI Per Admitting Provider Courtney is an 83-year-old female with PMH of rectal bleeding, internal hemorrhoids, chronic diarrhea, ulcerative proctosigmoiditis, GERD, OA, TIA, and anaplasmosis. She presented for 3 episodes of dark tarry stools x 2 days. Of note, the patient was at the ED on Thursday 12/07 for a superficial blood clot in the right upper leg; after talking with the anticoagulation clinic at that time, it was determined the patient should be started on Eliquis 20 mg daily, and then transition to Eliquis 5 mg twice daily (which patient has not started yet). The patient's dark tarry stool developed approximately 3 days later. No abdominal pain. She denies a history of upper GI bleeds or gastric ulcers, but notes she does have ulcerative colitis and has had BRB in rectum 2 years ago (currently well-controlled on mesalamine). Her last colonoscopy was in November 2022, and she was set to have a follow-up appointment with GI in January 2024. She also notes that she had a left hip replacement on November [address] Lucero, and that she has been taking 2 baby aspirin daily (rather than 1). She denies NSAID use for pain control, or recent Pepto-Bismol use. She denies any history of liver or esophageal issues. She does note that she drinks wine; 1 glass daily. No smoking or tobacco use. Ambulates with a walker at baseline. No recent falls, or trauma to the abdomen/pelvis. Patient reports that she took all of her regular morning medications today, including Eliquis and aspirin. The only recent change in medications have been Eliquis, the increase to 2 aspirin daily, and Vicodin for pain control following her hip replacement. Patient is hypertensive at 156/79 at time of admission; vitals otherwise stable. ED course: Pantoprazole 80 mg IV Famotidine 20 mg IV ROS: Patient endorses dark tarry stool x 2 days, and occasional chills. Patient denies fever, night sweats, headache, dizziness/lightheadedness with walking, chest pain, SOB, pleuritic CP, abdominal pain, N/V/D, blood in the urine, bright red blood in stool, urinary symptoms, burning with urination, ambulatory dysfunction, or numbness or tingling going down the legs. Principal Dx & Hospital Course #1 = Principal Diagnosis (1) Upper GI bleed: Acute blood loss anemia Dark tarry stools starting on 12/11 Patient was at the ED on Thursday 12/07 for a superficial right upper leg blood clot; started on Eliquis --> stopped on admission - was also taking ASA BID since hip replacement 11/27, resumed at discharge in the setting of superficial clot - repeat venous doppler with stable clot --> , recommend repeat dopplers in one week post discharge Hemoglobin 9.1 on arrival, now 8.9 day of discharge - did not require transfusion - IV Venofer x3 doses received GI consulted - EGD: non-obstructive schatzki ring, no source of bleeding - CTA of abdomen and pelvis - no source of bleeding - defer colonoscopy with recent postop hip ( would consider 4 to 6 weeks postop), unless significant drop in H&H Elevated platelets likely reactive to bleed tolerating low fiber diet, recommend continue on discharge repeat CBC or Monday of this week (ordered) repeat Dopplers in 1 week continue Protonix p.o. for GI protection (2) Ulcerative proctosigmoiditis: Patient denies any recent BRB in rectum On mesalamine; held while inpatient, resumed at discharge (3) Carotid artery stenosis: S/p left CEA in 2003 aspirin 81 mg twice daily as above (4) History of left hip replacement: On 11/[address] Lucero Pain control with acetaminophen (as above) - 21 clare removed in the ED 12/12 without issue Plan Disposition: discharge to home, with labs planned later this week and outpatient GI follow-up Discussed with Dr. Mendoza, GI, Day of discharge Discharge Exam General: NAD, VS as above Resp: normal respiratory effort, lungs clear to auscultation CV: RRR, no murmur, Abd: normal bowel sounds, non tender, no hepatosplenomegaly Extremities: Moves all extremities, no edema. laura hose in place, however folded over Neuro: A&O x3, Skin: intact, no lesions noted. not pale Updated Medication List Medication Instructions Recorded Confirmed Type cholecalciferol (vitamin D3) 25 25 mcg PO HS 11/29/21 12/13/23 History mcg (1,000 unit) tablet (Vitamin D3) dorzolamide 2 %-timolol 0.5 % (PF) 1 drp ophthalmic (eye) BID 11/29/21 12/13/23 History eye drops calcium 600 mg capsule 600 mg PO BID 12/08/22 12/13/23 History vit A 7,160 unit-vit C 113 mg-vit 2 tab PO BID 12/08/22 12/13/23 History E 100 [id number] tablet ezetimibe 10 mg tablet (Zetia) 10 mg PO QAM #90 tabs 03/27/23 12/13/23 Rx simvastatin 80 mg tablet 80 mg PO HS #90 tabs 04/19/23 12/13/23 Rx fluocinolone acetonide oil 0.01 % 5 drp otic (ear) Q7D PRN itching 11/06/23 12/13/23 History ear drops pantoprazole 40 mg tablet,delayed 40 mg PO QAM 11/06/23 12/13/23 History release mesalamine 1.2 gram tablet,delayed 2.4 g PO BID 11/27/23 12/13/23 History release (Lialda) aspirin 81 mg tablet,delayed 81 mg PO BID 42 days #0 tabs 11/28/23 12/13/23 Rx release hydrocodone 5 mg-acetaminophen 325 1 tab PO Q6H PRN pain #30 tabs 11/28/23 12/13/23 Rx mg tablet Hospital Stay Data Consultations 12/13/23 13:33 ED Decision to Admit Stat 12/13/23 17:27 Consult Gastroenterology Routine Procedures Performed Operation Date: 12/14/23 16:45 Actual Procedures p Esophagogastroduodenoscopy - Josef Madrigal. Case, DO Diagnostic Imagining Performed Venous Doppler Study 12/13/23 20:49 Exam(s): US VENOUS RIGHT LOWER EXTREMITY EXAM: US Duplex Right Lower Extremity Veins CLINICAL HISTORY: Reason for exam: Long segment occlusion in prior study on 12/07. TECHNIQUE: Real-time duplex ultrasound scan of the right lower extremity veins integrating B-mode two-dimensional vascular structure, Doppler spectral analysis, color flow Doppler imaging and compression. COMPARISON: 12/08/2023. FINDINGS: Deep veins: Unremarkable. No DVT in the visualized common femoral, femoral, proximal deep femoral or popliteal veins. The veins demonstrate normal color flow, are normally compressible, with normal phasic flow and/or augmentation response. Superficial veins: There is partial compressibility of the right greater saphenous vein from the mid thigh to the medial aspect of the knee, unchanged in the interval, measured over a length of 18.7 cm. No thrombus in the visualized great saphenous vein. Soft tissues: No acute findings. No popliteal cyst. IMPRESSION: 1. No ultrasonographic evidence of deep venous thrombosis involving the right lower extremity. 2. Superficial thrombosis involving the greater saphenous vein from mid thigh to the medial aspect of the knee as described, unchanged in the interval. Electronically signed by: Rosalind Vera MD 12/14/23 01:50 AM Abdomen/Pelvis CTA 12/14/23 12:56 CT angio abdomen pelvis w con CT DOSE: 1060.08 mGy.cm CLINICAL HISTORY: Acute blood loss anemia TECHNIQUE: Multiaxial CT images of the abdomen and pelvis were performed following the intravenous administration of 115 cc of Optiray 320. 3-D/maximum intensity projection images in the sagittal and coronal plane were performed for the CTA portion of the examination. A dose lowering technique was utilized adhering to the principles of ALARA. COMPARISON STUDY: Abdomen and pelvis CT 03/05/2020. FINDINGS: Stable 5 mm nodule within the right lower lobe on image 23. This is likely benign. Mild dependent changes seen at the lung bases. No pneumoperitoneum. No pneumatosis. No acute fractures. 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 There is also grade 1 anterolisthesis of L4 on L5. No acute fractures. Prior right total hip arthroplasty. Status post recent left total hip arthroplasty. Partially visualized 3.9 cm soft tissue/intramuscular fluid collection anterior to the left hip prosthesis. This is best seen image 305. This may represent a postoperative seroma or hematoma. There is an additional small 3 cm subcutaneous fluid collection anterior to the left hip on image 235. This also favors a small postoperative seroma/hematoma. No retroperitoneal hematoma. Skin thickening within the left lateral hip likely due to the recent postoperative change. The liver, gallbladder, pancreas, spleen, and adrenal glands are unremarkable. No retroperitoneal lymphadenopathy. A few small bilateral peripelvic renal cysts. The kidneys enhance normally. No hydronephrosis. No pelvic lymphadenopathy. No significant pelvic free fluid. The bladder is unremarkable. Small calcified uterine fibroid is again noted. Colonic diverticulosis. No evidence for acute diverticulitis. No bowel wall thickening or obstruction. Normal appendix. Moderate to severe calcified plaque within the normal caliber abdominal aorta and common iliac arteries. No evidence for an aortic dissection. Calcified plaque at the origin of the superior mesenteric artery without significant stenosis. The celiac artery and inferior mesenteric artery are patent. There is a replaced right hepatic artery which originates from the superior mesenteric artery. This is considered to be a normal variant. Moderate calcified plaque within the proximal bilateral renal arteries without significant stenosis or occlusion. There are single bilateral renal arteries noted. Moderate focal stenosis of approximately 50% at the takeoff of the left superficial femoral artery. Mild multifocal narrowing within the bilateral common and external iliac arteries due to the extensive calcified plaque. IMPRESSION: 1. Status post recent left total hip arthroplasty. Small fluid collections anterior to the left hip suggesting postoperative seroma/hematomas. 2. No retroperitoneal hematoma. 3. Moderate focal narrowing at the takeoff of the left superficial femoral artery due to the calcified plaque. There is mild multifocal narrowing within the bilateral iliac arteries. 4. Colonic diverticulosis. No evidence for acute diverticulitis. 5. No bowel wall thickening or obstruction. 6. Additional findings as described above. ACT 112: Negative or not required by law. Electronically signed by: Forest Warner M.D. 12/14/2023 3:21 PM Pending Results Patient Have Any Pending Studies at Discharge: No Discharge Instructions Given to Patient (Per Discharging Provider) Ms. Patel, you were hospitalized after having black tarry stools at home. During hospital stay you had the upper scope, EGD, that did not show any cause of your bleeding. To continue the workup you need a colonoscopy however this was not done because of your recent hip surgery. I spoke to the bit welder and he would recommend waiting at least 4 to 6 weeks after hip surgery to have the colonoscopy done. Your hemoglobin has remained stable and you did receive 3 iron infusions while you are here to kind of boost her iron stores. plan to: Repeat CBC this week on or Monday, results will be sent to your PCP repeat lower extremity Doppler to monitor the size of your clot this can be done Monday this week or early next week - continue aspirin 81 mg twice a day. You will NOT resume the Eliquis. Continue low fiber diet, handout attached Follow-up with GI in 1 to 2 weeks, we have already reached out to their office for an appointment Activity: You can do normal everyday activities as your body allows. Take rest breaks if you feel tired. Do not overexert. Stop activity if you have pain, shortness of breath or feel dizzy. Follow-up appointments: Make an appointment with your primary care physician within one week of discharge. A copy of this summary will be sent to them. Every time you see your primary care physician, or any other doctor, bring your medication list, and a list of questions. CONTACT YOUR PRIMARY CARE PROVIDER if you experience any of the following: Shortness of breath or difficulty breathing Fevers or chills Feeling tired with normal activity or experiencing dizziness or fainting Difficulty following your treatment plan, or difficulty taking medications CALL 911 OR GO TO THE EMERGENCY DEPARTMENT if you experience any of the following: Severe abdominal pain or nausea/vomiting Severe chest pain, or chest pain that radiates (moves) to your jaw or arm Sudden, severe shortness of breath or difficulty breathing Thank you for allowing us to participate in your care. Total Time Total Time Spent Total Time Spent (In Minutes): Time spend day of discharge 40 minutes including direct patient care, medication reconciliation, documentation, review of labs and images, and coordination of care. Coding Level of Care Code 20241 INP/OBS DISCH >30 MIN Diagnoses Upper GI bleed K92.2 Ulcerative proctosigmoiditis K51.30 Carotid artery stenosis I65.29 History of left hip replacement Z96.642
== END 2023-12-18 16:02 | disposition home or self-care (01) | DRG 378 ==
LOC: ED 11:37 → EDINP 14:35 → SUATTDRO 14:35 → 2W 17:25
DX: Z79.82 Long term (current) use of aspirin; Z88.5 Allergy status to narcotic agent; K22.2 Esophageal obstruction; K92.1 Melena; Z86.16 Personal history of COVID-19; I82.811 Embolism and thrombosis of superficial veins of right lower extremity; K92.2 Gastrointestinal hemorrhage, unspecified; Z88.8 Allergy status to other drugs, medicaments and biological substances; K51.90 Ulcerative colitis, unspecified, without complications; D62 Acute posthemorrhagic anemia; Z96.21 Cochlear implant status; R79.1 Abnormal coagulation profile; Z96.642 Presence of left artificial hip joint; Z87.891 Personal history of nicotine dependence